=== PATIENT | female | born 1960 | race Caucasian/White ===

== ENCOUNTER 2020-04-10 20:40 | Emergency (ER) | payer MEDICARE, MEDICAID, SELFPAY ==
[2020-04-10 20:42] VITALS: BP 77/34; PULSE 66; RESP 16; TEMP 36.3; O2SAT 95; BMI 39.8
[2020-04-10 20:49] VITALS: BP 101/59
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
[2020-04-10] MEDS: oxyCODONE HCl Immed Release 5 MG TABLET PO (22:12)
[2020-04-10 22:35] VITALS: BP 118/69; PULSE 77; RESP 18; TEMP 36.7; O2SAT 94
[2020-04-10] MEDS: Silver Sulfadiazine 1 % Cream 20 GM TUBE 1 APPL TOPICAL (23:02)
== END 2020-04-10 23:14 | disposition home or self-care (01) ==
PROVIDERS: Emergency Provider Emergency Medicine
DX: T24.212A Burn of second degree of left thigh, initial encounter (principal); T24.211A Burn of second degree of right thigh, initial encounter; T31.0 Burns involving less than 10% of body surface; X10.0XXA Contact with hot drinks, initial encounter; E11.9 Type 2 diabetes mellitus without complications; I10 Essential (primary) hypertension; Y93.89 Activity, other specified; Y92.810 Car as the place of occurrence of the external cause; Y99.9 Unspecified external cause status
CPT/HCPCS: 99283

== ENCOUNTER 2020-04-19 13:26 | Inpatient (IN) | payer MEDICARE, MEDICAID, SELFPAY ==
[2020-04-19 13:40] VITALS: BP 120/84; BP 122/81; PULSE 79; PULSE 95; RESP 18; TEMP 37.2; O2SAT 96; O2SAT 97; BMI 39.5
[2020-04-19 14:00] VITALS: TEMP 36.2
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
[2020-04-19 14:29] LABS: MANUAL DIFF FLAG NO
[2020-04-19 14:30] LABS: Basophils Percent Auto 0.4 % (0-2); Eosinophils Absolute Auto 0.1 X10*3/uL (0.0-0.4); Eosinophils Percent Auto 1.3 % (0-4); Hematocrit 40.5 % (37-47); Hemoglobin 13.2 g/dl (12.0-16.0); Imm Gran Abs Auto 0.28 X10*3/uL (0.00-0.03); Imm Gran Pct Auto 3.7 % (0.0-0.4); Lymphocytes Absolute Auto 1.8 X10*3/uL (1.2-4.9); Lymphocytes Percent Auto 23.6 % (20-40); Mean Corpuscular HGB Conc 32.6 g/dl (31.0-35.0); Mean Corpuscular Hemoglobin 27.4 pg (27.0-33.0); Mean Corpuscular Volume 84.2 fL (80-98); Mean Platelet Volume 8.7 fL (9.4-12.3); Monocytes Absolute Auto 0.5 X10*3/uL (0.1-1.2); Monocytes Percent Auto 6.7 % (2-11); Neutrophils Absolute Auto 4.9 X10*3/uL (2.0-8.3); Neutrophils Percent Auto 64.3 % (45-73); Platelet Count 369 X10*3/uL (160-400); Red Blood Count 4.81 X10*6/uL (4.20-5.50); Red Cell Distribution Width 12.6 % (11.0-16.0); White Blood Count 7.6 X10*3/uL (4.8-10.8)
[2020-04-19] MEDS: ondansetron HCL 4 MG/2 ML VIAL IVPUSH (14:35)
[2020-04-19] MEDS: Piperacillin Sodium/Tazobactam 3.375 GM in 0.9 % Sodium Chloride 50 ML IV (14:35)
[2020-04-19] MEDS: Morphine Sulfate 4 MG/ML CARTRIDGE IVPUSH ×2 (14:35→18:42)
[2020-04-19 14:40] LABS: INTERNATIONAL NORM RATIO 1.1 (0.9-1.1); Prothrombin Time 13.5 SEC (10.8-13.0)
[2020-04-19 14:41] LABS: COVID-19 Test Positive (Negative)
--- NOTE | 2020-04-19 14:42 | PC.NURSE ---
iv established, blood labs obtained and sent. medicated per emar. pharmacy called for iv vanco.
[2020-04-19 14:43] LABS: Partial Thromboplastin Time 31.8 SEC (24.1-38.0)
[2020-04-19 15:05] LABS: Lactic Acid 1.2 mmol/L (0.5-2.0)
--- NOTE | 2020-04-19 15:48 | PC.NURSE ---
hospitalist at bedside for eval.
[2020-04-19 16:46] LABS: Alanine Aminotransferase 8 U/L (0-31); Albumin Level 3.8 g/dL (3.5-5.0); Alkaline Phosphatase 92 U/L (39-117); Anion Gap 16 (12-20); Aspartate Amino Transferase 9 U/L (5-31); Bilirubin Direct 0.2 mg/dL (0.0-0.5); Bilirubin Total 0.3 mg/dL (0.0-1.0); Blood Urea Nitrogen 12 mg/dL (9-16); Calcium 8.7 mg/dL (8.4-10.2); Carbon Dioxide 26 mmol/L (22-29); Chloride 102 mmol/L (96-108); Creatinine Clr Calc Pharmacy 103.5; Estimated Glomerular Filt Rate > 60; Glucose Random 129 mg/dL (60-115); Lactate Dehydrogenase 163 U/L (122-220); Lipase 35 U/L (8-78); Magnesium 2.2 mg/dL (1.6-2.6); Sodium 140 mmol/L (135-145); Total Protein 6.5 g/dL (6.5-8.0)
[2020-04-19 17:06] LABS: Glucose, Whole Blood 135 mg/dL (60-115)
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
[2020-04-19 19:33] VITALS: BP 100/72; PULSE 84; RESP 18; O2SAT 98
[2020-04-19] MEDS: oxyCODONE HCl Immed Release 5 MG TABLET PO (21:20)
[2020-04-19] MEDS: Acetaminophen 325 MG TABLET 650 MG PO (21:20)
[2020-04-19] MEDS: Silver Sulfadiazine 1 % Cream 20 GM TUBE 1 APPL TOPICAL (21:21)
[2020-04-19] MEDS: metFORMIN HCl 1,000 MG TABLET 1000 MG PO (21:21)
[2020-04-19] MEDS: Enoxaparin Sodium 40 MG/0.4 ML SYRINGE SUBCUT (21:21)
[2020-04-20] VITALS (7 sets, daily range): BP systolic 93–128; BP diastolic 57–81; PULSE 71–89; RESP 16–20; TEMP 36.5–36.8; O2SAT 94–96; BMI 39.5
[2020-04-20] MEDS: 0.9 % Sodium Chloride Flush 3 ML SYRINGE IVFLUSH ×4 (00:13→23:10)
[2020-04-20] MEDS: vancomycin HCL 1,000 MG in 0.9 % Sodium Chloride 250 ML 270 MG IV ×2 (03:20→15:01)
[2020-04-20] MEDS: Acetaminophen 325 MG TABLET 650 MG PO (05:30)
[2020-04-20] MEDS: oxyCODONE HCl Immed Release 5 MG TABLET PO ×5 (05:30→23:10)
--- NOTE | 2020-04-20 07:29 | PC.NURSE ---
pt a/o x 3 no sob/shaina noted skin pink warm dry speaks in full sentences. denies any pain/disc. pt aware of plan of care for admission to hosp.
[2020-04-20 08:03] LABS: MANUAL DIFF FLAG NO
[2020-04-20 08:04] LABS: Basophils Percent Auto 0.4 % (0-2); Eosinophils Absolute Auto 0.1 X10*3/uL (0.0-0.4); Eosinophils Percent Auto 1.8 % (0-4); Hematocrit 38.2 % (37-47); Hemoglobin 12.2 g/dl (12.0-16.0); Imm Gran Abs Auto 0.19 X10*3/uL (0.00-0.03); Imm Gran Pct Auto 2.4 % (0.0-0.4); Lymphocytes Percent Auto 25.8 % (20-40); Mean Corpuscular HGB Conc 31.9 g/dl (31.0-35.0); Mean Corpuscular Hemoglobin 27.4 pg (27.0-33.0); Mean Corpuscular Volume 85.7 fL (80-98); Mean Platelet Volume 8.5 fL (9.4-12.3); Monocytes Absolute Auto 0.6 X10*3/uL (0.1-1.2); Monocytes Percent Auto 7.6 % (2-11); Neutrophils Absolute Auto 4.8 X10*3/uL (2.0-8.3); Platelet Count 334 X10*3/uL (160-400); Red Blood Count 4.46 X10*6/uL (4.20-5.50); White Blood Count 7.8 X10*3/uL (4.8-10.8)
[2020-04-20] MEDS: hydroCHLOROthiazide 12.5 MG TABLET PO (08:21)
[2020-04-20] MEDS: metFORMIN HCl 1,000 MG TABLET 1000 MG PO ×2 (08:22→21:38)
[2020-04-20] MEDS: Aspirin Enteric Coated 81 MG TABLET.DR PO (08:22)
[2020-04-20] MEDS: Atorvastatin Calcium 80 MG TABLET PO (08:23)
[2020-04-20] MEDS: Fluticasone/Vilanterol 200/25 BLST.W.DEV 1 PUFF INHALE (08:23)
[2020-04-20] MEDS: Fluticasone Propionate Nasal 16 GM SPRAY 1 SPRAY NOSTRIL-B (08:23)
[2020-04-20 08:45] LABS: Anion Gap 12 (12-20); Blood Urea Nitrogen 17 mg/dL (9-16); Calcium 8.4 mg/dL (8.4-10.2); Carbon Dioxide 31 mmol/L (22-29); Chloride 101 mmol/L (96-108); Creatinine Clr Calc Pharmacy 97.2; Estimated Glomerular Filt Rate > 60; Glucose Random 157 mg/dL (60-115); Potassium 4.5 mmol/l (3.3-5.1); Sodium 139 mmol/L (135-145)
[2020-04-20] MEDS: SITagliptin Phosphate 100 MG TABLET PO (08:50)
--- NOTE | 2020-04-20 09:00 | PC.NURSE ---
pt was med x 1 with tylenol 650mg po prn for 2/10 pain prior to dressing change.
--- NOTE | 2020-04-20 09:49 | PC.NURSE ---
nurse to nurse given to ana (edwina), pt aware of plan of care for admission to hosp.
--- NOTE | 2020-04-20 12:46 | MHC.CM.PN ---
talked with pts daphnie hill with whom she lives he explins that pt has an tn visit every 3 months thru her ins he will radha pt home whendcd
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
[2020-04-20 13:22] LABS: Glucose, Whole Blood 126 mg/dL (60-115)
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
[2020-04-20 16:48] LABS: Glucose, Whole Blood 128 mg/dL (60-115)
[2020-04-20] MEDS: Enoxaparin Sodium 40 MG/0.4 ML SYRINGE SUBCUT (17:13)
[2020-04-20 20:19] LABS: Glucose, Whole Blood 153 mg/dL (60-115)
[2020-04-20] MEDS: Insulin Lispro 100 UNIT/ML 3 ML VIAL SUBCUT (21:38)
[2020-04-21] VITALS (8 sets, daily range): BP systolic 102–131; BP diastolic 58–83; PULSE 77–91; RESP 13–20; TEMP 36.1–37.4; O2SAT 90–97
[2020-04-21 02:29] LABS: Vancomycin Trough 10.7 mcg/mL (10.0-20.0)
[2020-04-21] MEDS: vancomycin HCL 1,000 MG in 0.9 % Sodium Chloride 250 ML 270 MG IV ×2 (03:28→15:16)
[2020-04-21 08:01] LABS: Glucose, Whole Blood 137 mg/dL (60-115)
[2020-04-21] MEDS: oxyCODONE HCl Immed Release 5 MG TABLET PO ×2 (09:52→18:42)
[2020-04-21] MEDS: Atorvastatin Calcium 80 MG TABLET PO (09:53)
[2020-04-21] MEDS: hydroCHLOROthiazide 12.5 MG TABLET PO (09:54)
[2020-04-21] MEDS: metFORMIN HCl 1,000 MG TABLET 1000 MG PO ×2 (09:54→19:54)
[2020-04-21] MEDS: Aspirin Enteric Coated 81 MG TABLET.DR PO (09:54)
[2020-04-21] MEDS: 0.9 % Sodium Chloride Flush 3 ML SYRINGE IVFLUSH ×3 (09:54→20:15)
[2020-04-21] MEDS: Fluticasone/Vilanterol 200/25 BLST.W.DEV 1 PUFF INHALE (09:57)
[2020-04-21] MEDS: Fluticasone Propionate Nasal 16 GM SPRAY 1 SPRAY NOSTRIL-B (09:57)
[2020-04-21 11:12] LABS: Glucose, Whole Blood 201 mg/dL (60-115)
[2020-04-21] MEDS: SITagliptin Phosphate 100 MG TABLET PO (11:23)
[2020-04-21] MEDS: Insulin Lispro 100 UNIT/ML 3 ML VIAL SUBCUT ×2 (11:59→19:53)
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
[2020-04-21 16:33] LABS: Glucose, Whole Blood 102 mg/dL (60-115)
[2020-04-21] MEDS: Enoxaparin Sodium 40 MG/0.4 ML SYRINGE SUBCUT (18:42)
[2020-04-21] MEDS: Acetaminophen 325 MG TABLET 650 MG PO (19:53)
[2020-04-21 20:03] LABS: Glucose, Whole Blood 180 mg/dL (60-115)
[2020-04-22] VITALS (11 sets, daily range): BP systolic 107–151; BP diastolic 59–96; PULSE 2–87; RESP 16–20; TEMP 36.1–37.1; O2SAT 93–100
[2020-04-22] MEDS: vancomycin HCL 1,000 MG in 0.9 % Sodium Chloride 250 ML 270 MG IV (02:22)
[2020-04-22] MEDS: oxyCODONE HCl Immed Release 5 MG TABLET PO ×3 (02:22→18:08)
[2020-04-22 07:07] LABS: Anion Gap 15 (12-20); Blood Urea Nitrogen 20 mg/dL (9-16); Calcium 8.5 mg/dL (8.4-10.2); Carbon Dioxide 25 mmol/L (22-29); Chloride 103 mmol/L (96-108); Creatinine Clr Calc Pharmacy 109.1; Estimated Glomerular Filt Rate > 60; Glucose Random 176 mg/dL (60-115); Sodium 139 mmol/L (135-145)
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
[2020-04-22 07:45] LABS: Glucose, Whole Blood 157 mg/dL (60-115)
[2020-04-22] MEDS: 0.9 % Sodium Chloride Flush 3 ML SYRINGE IVFLUSH ×3 (08:00→23:33)
[2020-04-22] MEDS: Fluticasone Propionate Nasal 16 GM SPRAY 1 SPRAY NOSTRIL-B (08:01)
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
[2020-04-22 11:31] LABS: Glucose, Whole Blood 131 mg/dL (60-115)
[2020-04-22 13:07] LABS: Vancomycin Trough 12.7 mcg/mL (10.0-20.0)
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
[2020-04-22 16:18] LABS: Glucose, Whole Blood 116 mg/dL (60-115)
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
[2020-04-22 21:31] LABS: Glucose, Whole Blood 170 mg/dL (60-115)
[2020-04-22] MEDS: Enoxaparin Sodium 40 MG/0.4 ML SYRINGE SUBCUT (21:48)
[2020-04-22] MEDS: metFORMIN HCl 1,000 MG TABLET 1000 MG PO (21:48)
[2020-04-22] MEDS: Insulin Lispro 100 UNIT/ML 3 ML VIAL SUBCUT (21:49)
[2020-04-23] VITALS (8 sets, daily range): BP systolic 104–137; BP diastolic 67–87; PULSE 67–87; RESP 18–20; TEMP 36.4–36.7; O2SAT 93–97
--- NOTE | 2020-04-23 07:19 | HO.POSTANES ---
Post Anesthesia Evaluation Post Anesthesia Evaluation Vital Signs: Vital Signs Temp Pulse Resp BP Pulse Ox 04/23/20 03:26 97.5 F 80 18 137/87 93 04/22/20 23:02 97.7 F 87 18 107/59 L 95 04/22/20 21:05 97.7 F 2 L 18 149/90 H 93 04/22/20 20:50 81 18 151/96 H 93 04/22/20 20:45 84 17 141/90 H 99 04/22/20 20:40 98.7 F 82 20 136/80 100 04/22/20 20:36 86 18 142/87 H 100 04/22/20 20:11 97.5 F 71 18 138/91 H 98 Morbid obese COVID + since 04/19 Anesthesia: General Mental Status: Awake Pain Control: Satisfactory Nausea/Vomiting: None Hydration: Adequate Anesthesia-Related Issues: No Anes. Related Issues
[2020-04-23 07:44] LABS: Glucose, Whole Blood 132 mg/dL (60-115)
[2020-04-23] MEDS: metFORMIN HCl 1,000 MG TABLET 1000 MG PO ×2 (08:17→21:26)
[2020-04-23] MEDS: 0.9 % Sodium Chloride Flush 3 ML SYRINGE IVFLUSH ×3 (08:17→21:26)
[2020-04-23] MEDS: oxyCODONE HCl Immed Release 5 MG TABLET PO ×3 (08:17→21:26)
[2020-04-23] MEDS: SITagliptin Phosphate 100 MG TABLET PO (08:17)
[2020-04-23] MEDS: Aspirin Enteric Coated 81 MG TABLET.DR PO (08:17)
[2020-04-23] MEDS: Atorvastatin Calcium 80 MG TABLET PO (08:17)
[2020-04-23] MEDS: hydroCHLOROthiazide 12.5 MG TABLET PO (08:17)
[2020-04-23] MEDS: Fluticasone Propionate Nasal 16 GM SPRAY 1 SPRAY NOSTRIL-B (08:18)
[2020-04-23] MEDS: Fluticasone/Vilanterol 200/25 BLST.W.DEV 1 PUFF INHALE (08:30)
[2020-04-23 11:25] LABS: Glucose, Whole Blood 134 mg/dL (60-115)
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
[2020-04-23 16:27] LABS: Glucose, Whole Blood 161 mg/dL (60-115)
[2020-04-23] MEDS: Insulin Lispro 100 UNIT/ML 3 ML VIAL SUBCUT ×2 (16:51→21:26)
[2020-04-23] MEDS: Piperacillin Sodium/Tazobactam 3.375 GM in 0.9 % Sodium Chloride 50 ML IV (17:55)
[2020-04-23] MEDS: Enoxaparin Sodium 40 MG/0.4 ML SYRINGE SUBCUT (17:56)
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
[2020-04-23 21:24] LABS: Glucose, Whole Blood 163 mg/dL (60-115)
[2020-04-24] VITALS (8 sets, daily range): BP systolic 101–142; BP diastolic 64–79; PULSE 60–84; RESP 14–20; TEMP 36.1–36.9; O2SAT 92–98
[2020-04-24] MEDS: Piperacillin Sodium/Tazobactam 3.375 GM in 0.9 % Sodium Chloride 50 ML IV ×5 (00:28→23:05)
[2020-04-24 04:43] LABS: MANUAL DIFF FLAG NO
[2020-04-24 04:44] LABS: Basophils Percent Auto 0.5 % (0-2); Eosinophils Absolute Auto 0.2 X10*3/uL (0.0-0.4); Eosinophils Percent Auto 2.6 % (0-4); Hematocrit 35.1 % (37-47); Hemoglobin 11.3 g/dl (12.0-16.0); Imm Gran Pct Auto 1.6 % (0.0-0.4); Lymphocytes Absolute Auto 2.3 X10*3/uL (1.2-4.9); Lymphocytes Percent Auto 37.4 % (20-40); Mean Corpuscular HGB Conc 32.2 g/dl (31.0-35.0); Mean Corpuscular Hemoglobin 27.5 pg (27.0-33.0); Mean Corpuscular Volume 85.4 fL (80-98); Mean Platelet Volume 8.9 fL (9.4-12.3); Monocytes Absolute Auto 0.5 X10*3/uL (0.1-1.2); Monocytes Percent Auto 8.8 % (2-11); Neutrophils Percent Auto 49.1 % (45-73); Platelet Count 334 X10*3/uL (160-400); Red Blood Count 4.11 X10*6/uL (4.20-5.50); Red Cell Distribution Width 13.2 % (11.0-16.0); White Blood Count 6.2 X10*3/uL (4.8-10.8)
[2020-04-24 05:08] LABS: Anion Gap 14 (12-20); Blood Urea Nitrogen 17 mg/dL (9-16); Calcium 8.5 mg/dL (8.4-10.2); Carbon Dioxide 26 mmol/L (22-29); Chloride 105 mmol/L (96-108); Creatinine Clr Calc Pharmacy 109.1; Estimated Glomerular Filt Rate > 60; Glucose Random 126 mg/dL (60-115); Sodium 141 mmol/L (135-145)
[2020-04-24 05:14] LABS: Vancomycin Trough 12.6 mcg/mL (10.0-20.0)
[2020-04-24] MEDS: metFORMIN HCl 1,000 MG TABLET 1000 MG PO ×2 (07:15→20:33)
[2020-04-24] MEDS: Aspirin Enteric Coated 81 MG TABLET.DR PO (07:15)
[2020-04-24] MEDS: 0.9 % Sodium Chloride Flush 3 ML SYRINGE IVFLUSH ×3 (07:15→23:05)
[2020-04-24] MEDS: SITagliptin Phosphate 100 MG TABLET PO (07:16)
[2020-04-24] MEDS: hydroCHLOROthiazide 12.5 MG TABLET PO (07:16)
[2020-04-24] MEDS: Atorvastatin Calcium 80 MG TABLET PO (07:16)
[2020-04-24] MEDS: Fluticasone Propionate Nasal 16 GM SPRAY 1 SPRAY NOSTRIL-B (07:18)
[2020-04-24] MEDS: Fluticasone/Vilanterol 200/25 BLST.W.DEV 1 PUFF INHALE (07:43)
[2020-04-24] MEDS: oxyCODONE HCl Immed Release 5 MG TABLET PO ×2 (07:48→21:18)
[2020-04-24 07:54] LABS: Glucose, Whole Blood 144 mg/dL (60-115)
[2020-04-24] MEDS: Morphine Sulfate 4 MG/ML CARTRIDGE IVPUSH (09:40)
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
[2020-04-24 11:32] LABS: Glucose, Whole Blood 132 mg/dL (60-115)
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
[2020-04-24 16:43] LABS: Glucose, Whole Blood 217 mg/dL (60-115)
[2020-04-24] MEDS: Enoxaparin Sodium 40 MG/0.4 ML SYRINGE SUBCUT (17:54)
[2020-04-24] MEDS: Insulin Lispro 100 UNIT/ML 3 ML VIAL SUBCUT ×2 (17:54→20:33)
[2020-04-24 20:40] LABS: Glucose, Whole Blood 219 mg/dL (60-115)
[2020-04-25] VITALS (10 sets, daily range): BP systolic 107–131; BP diastolic 69–82; PULSE 67–78; RESP 16–20; TEMP 36.2–36.9; O2SAT 95–99
[2020-04-25] MEDS: Piperacillin Sodium/Tazobactam 3.375 GM in 0.9 % Sodium Chloride 50 ML IV ×3 (06:18→17:52)
[2020-04-25 07:22] LABS: Hematocrit 36.3 % (37-47); Hemoglobin 11.5 g/dl (12.0-16.0); Mean Corpuscular HGB Conc 31.7 g/dl (31.0-35.0); Mean Corpuscular Hemoglobin 27.3 pg (27.0-33.0); Mean Corpuscular Volume 86.2 fL (80-98); Mean Platelet Volume 9.1 fL (9.4-12.3); Platelet Count 336 X10*3/uL (160-400); Red Blood Count 4.21 X10*6/uL (4.20-5.50); Red Cell Distribution Width 13.3 % (11.0-16.0); White Blood Count 6.6 X10*3/uL (4.8-10.8)
[2020-04-25 07:31] LABS: Anion Gap 18 (12-20); Blood Urea Nitrogen 18 mg/dL (9-16); Calcium 8.7 mg/dL (8.4-10.2); Carbon Dioxide 24 mmol/L (22-29); Chloride 105 mmol/L (96-108); Creatinine Clr Calc Pharmacy 104.8; Estimated Glomerular Filt Rate > 60; Glucose Random 137 mg/dL (60-115); Potassium 4.7 mmol/l (3.3-5.1); Sodium 142 mmol/L (135-145)
[2020-04-25] MEDS: Fluticasone/Vilanterol 200/25 BLST.W.DEV 1 PUFF INHALE (07:36)
[2020-04-25 07:44] LABS: Glucose, Whole Blood 129 mg/dL (60-115)
[2020-04-25] MEDS: 0.9 % Sodium Chloride Flush 3 ML SYRINGE IVFLUSH ×2 (08:48→15:45)
[2020-04-25] MEDS: Fluticasone Propionate Nasal 16 GM SPRAY 1 SPRAY NOSTRIL-B (08:49)
[2020-04-25] MEDS: Atorvastatin Calcium 80 MG TABLET PO (08:49)
[2020-04-25] MEDS: hydroCHLOROthiazide 12.5 MG TABLET PO (08:49)
[2020-04-25] MEDS: Aspirin Enteric Coated 81 MG TABLET.DR PO (08:49)
[2020-04-25] MEDS: SITagliptin Phosphate 100 MG TABLET PO (08:49)
[2020-04-25] MEDS: metFORMIN HCl 1,000 MG TABLET 1000 MG PO ×2 (08:49→21:51)
[2020-04-25] MEDS: Morphine Sulfate 4 MG/ML CARTRIDGE IVPUSH ×2 (09:00→15:45)
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
[2020-04-25 11:40] LABS: Glucose, Whole Blood 161 mg/dL (60-115)
[2020-04-25] MEDS: Insulin Lispro 100 UNIT/ML 3 ML VIAL SUBCUT (12:15)
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
[2020-04-25 16:47] LABS: Glucose, Whole Blood 101 mg/dL (60-115)
[2020-04-25] MEDS: Enoxaparin Sodium 40 MG/0.4 ML SYRINGE SUBCUT (17:52)
[2020-04-25 20:38] LABS: Glucose, Whole Blood 151 mg/dL (60-115)
[2020-04-26] VITALS (7 sets, daily range): BP systolic 96–132; BP diastolic 63–71; PULSE 69–79; RESP 18; TEMP 36–36.9; O2SAT 96–99
[2020-04-26] MEDS: Morphine Sulfate 4 MG/ML CARTRIDGE IVPUSH (00:37)
[2020-04-26] MEDS: Piperacillin Sodium/Tazobactam 3.375 GM in 0.9 % Sodium Chloride 50 ML IV ×5 (00:37→23:49)
[2020-04-26] MEDS: 0.9 % Sodium Chloride Flush 3 ML SYRINGE IVFLUSH ×4 (00:38→23:49)
[2020-04-26 03:33] LABS: Vancomycin Trough 19.2 mcg/mL (10.0-20.0)
[2020-04-26 06:58] LABS: Creatinine Clr Calc Pharmacy 97.2; Estimated Glomerular Filt Rate > 60
[2020-04-26 07:20] LABS: Glucose, Whole Blood 133 mg/dL (60-115)
[2020-04-26] MEDS: Aspirin Enteric Coated 81 MG TABLET.DR PO (08:14)
[2020-04-26] MEDS: hydroCHLOROthiazide 12.5 MG TABLET PO (08:15)
[2020-04-26] MEDS: metFORMIN HCl 1,000 MG TABLET 1000 MG PO ×2 (08:15→21:18)
[2020-04-26] MEDS: Atorvastatin Calcium 80 MG TABLET PO (08:15)
[2020-04-26] MEDS: SITagliptin Phosphate 100 MG TABLET PO (08:15)
[2020-04-26] MEDS: Fluticasone Propionate Nasal 16 GM SPRAY 1 SPRAY NOSTRIL-B (08:16)
[2020-04-26] MEDS: oxyCODONE HCl Immed Release 5 MG TABLET PO ×3 (08:16→21:18)
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
[2020-04-26 11:23] LABS: Glucose, Whole Blood 105 mg/dL (60-115)
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
[2020-04-26 17:01] LABS: COVID-19 Test Positive (Negative)
[2020-04-26 17:05] LABS: Glucose, Whole Blood 174 mg/dL (60-115)
--- NOTE | 2020-04-26 17:21 | PC.NURSE ---
MD ordered repeat covid swab prior to discharge. When nurse went to obtain specimen patient initially refused and said that she was going to refuse to be discharged until her wounds are completely healed. Patient educated on potential discharge plan and patient became very emotional. After lengthy discussion and assurance from nurse that case management will make sure that her needs will be able to be met when she is discharged. Patient agreed to covid swab.
[2020-04-26] MEDS: Enoxaparin Sodium 40 MG/0.4 ML SYRINGE SUBCUT (18:08)
[2020-04-26 20:28] LABS: Glucose, Whole Blood 162 mg/dL (60-115)
[2020-04-26] MEDS: Insulin Lispro 100 UNIT/ML 3 ML VIAL SUBCUT (21:18)
[2020-04-27] VITALS (11 sets, daily range): BP systolic 90–133; BP diastolic 52–73; PULSE 68–80; RESP 18–20; TEMP 36.1–36.8; O2SAT 94–98
[2020-04-27 03:36] LABS: Vancomycin Trough 18.5 mcg/mL (10.0-20.0)
[2020-04-27] MEDS: Piperacillin Sodium/Tazobactam 3.375 GM in 0.9 % Sodium Chloride 50 ML IV ×4 (05:50→23:53)
[2020-04-27 07:22] LABS: Glucose, Whole Blood 110 mg/dL (60-115)
[2020-04-27 07:32] LABS: Anion Gap 14 (12-20); Blood Urea Nitrogen 14 mg/dL (9-16); Calcium 8.6 mg/dL (8.4-10.2); Carbon Dioxide 28 mmol/L (22-29); Chloride 104 mmol/L (96-108); Creatinine Clr Calc Pharmacy 97.2; Estimated Glomerular Filt Rate > 60; Glucose Random 124 mg/dL (60-115); Potassium 4.3 mmol/l (3.3-5.1); Sodium 142 mmol/L (135-145)
[2020-04-27] MEDS: 0.9 % Sodium Chloride Flush 3 ML SYRINGE IVFLUSH ×3 (09:14→23:53)
[2020-04-27] MEDS: Morphine Sulfate 4 MG/ML CARTRIDGE IVPUSH ×2 (09:14→16:30)
[2020-04-27] MEDS: Atorvastatin Calcium 80 MG TABLET PO (09:15)
[2020-04-27] MEDS: metFORMIN HCl 1,000 MG TABLET 1000 MG PO ×2 (09:15→22:22)
[2020-04-27] MEDS: Fluticasone Propionate Nasal 16 GM SPRAY 1 SPRAY NOSTRIL-B (09:15)
[2020-04-27] MEDS: SITagliptin Phosphate 100 MG TABLET PO (09:15)
[2020-04-27] MEDS: Aspirin Enteric Coated 81 MG TABLET.DR PO (09:15)
[2020-04-27] MEDS: hydroCHLOROthiazide 12.5 MG TABLET PO (09:15)
[2020-04-27 11:13] LABS: Glucose, Whole Blood 124 mg/dL (60-115)
--- NOTE | 2020-04-27 11:49 | MHC.CLN ---
F/U PO INTAKE 100% DIET RX: 1800DM-APPROPRIATE WILL RE-START ENSURE MAX SUPP AND REYNA TO SUPPORT WOUND HEALING FOLLOWING
[2020-04-27] MEDS: ondansetron HCL 4 MG/2 ML VIAL IVPUSH (12:22)
[2020-04-27 16:54] LABS: Glucose, Whole Blood 96 mg/dL (60-115)
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
[2020-04-27] MEDS: Enoxaparin Sodium 40 MG/0.4 ML SYRINGE SUBCUT (17:53)
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
[2020-04-27 20:25] LABS: Glucose, Whole Blood 133 mg/dL (60-115)
[2020-04-27] MEDS: oxyCODONE HCl Immed Release 5 MG TABLET PO (22:29)
[2020-04-28 03:37] VITALS: BP 91/62; PULSE 76; RESP 18; TEMP 36.1; O2SAT 95
[2020-04-28] MEDS: Piperacillin Sodium/Tazobactam 3.375 GM in 0.9 % Sodium Chloride 50 ML IV ×3 (06:26→19:32)
[2020-04-28 07:11] LABS: Anion Gap 13 (12-20); Blood Urea Nitrogen 17 mg/dL (9-16); Calcium 8.4 mg/dL (8.4-10.2); Carbon Dioxide 27 mmol/L (22-29); Chloride 104 mmol/L (96-108); Creatinine Clr Calc Pharmacy 97.2; Estimated Glomerular Filt Rate > 60; Glucose Random 112 mg/dL (60-115); Potassium 4.1 mmol/l (3.3-5.1); Sodium 140 mmol/L (135-145)
[2020-04-28 07:48] LABS: Glucose, Whole Blood 110 mg/dL (60-115)
[2020-04-28] MEDS: Aspirin Enteric Coated 81 MG TABLET.DR PO (07:53)
[2020-04-28] MEDS: metFORMIN HCl 1,000 MG TABLET 1000 MG PO ×2 (07:53→21:43)
[2020-04-28] MEDS: SITagliptin Phosphate 100 MG TABLET PO (07:53)
[2020-04-28] MEDS: 0.9 % Sodium Chloride Flush 3 ML SYRINGE IVFLUSH ×3 (07:54→21:44)
[2020-04-28] MEDS: Atorvastatin Calcium 80 MG TABLET PO (07:54)
[2020-04-28 08:00] VITALS: BP 100/70; PULSE 83; RESP 100; TEMP 36.7; O2SAT 100
[2020-04-28] MEDS: Fluticasone Propionate Nasal 16 GM SPRAY 1 SPRAY NOSTRIL-B (08:01)
[2020-04-28] MEDS: hydroCHLOROthiazide 12.5 MG TABLET PO (10:14)
[2020-04-28] MEDS: oxyCODONE HCl Immed Release 5 MG TABLET PO ×2 (10:20→21:43)
[2020-04-28 11:07] VITALS: BP 103/64; PULSE 76; RESP 20; TEMP 36.9; O2SAT 99
[2020-04-28 11:36] LABS: Glucose, Whole Blood 131 mg/dL (60-115)
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
[2020-04-28 16:00] VITALS: BP 109/68; PULSE 75; RESP 18; TEMP 36.8; O2SAT 97
[2020-04-28 16:17] LABS: Glucose, Whole Blood 151 mg/dL (60-115)
[2020-04-28 16:47] LABS: Vancomycin Trough 12.9 mcg/mL (10.0-20.0)
[2020-04-28] MEDS: Insulin Lispro 100 UNIT/ML 3 ML VIAL SUBCUT ×2 (17:17→21:43)
[2020-04-28] MEDS: Enoxaparin Sodium 40 MG/0.4 ML SYRINGE SUBCUT (19:30)
[2020-04-28] MEDS: Fluticasone/Vilanterol 200/25 BLST.W.DEV 1 PUFF INHALE (19:33)
[2020-04-28 19:55] VITALS: BP 121/64; PULSE 78; RESP 20; TEMP 36.9; O2SAT 95
[2020-04-28 20:00] VITALS: O2SAT 95
[2020-04-28 20:04] LABS: Glucose, Whole Blood 165 mg/dL (60-115)
[2020-04-29] VITALS: BP 113/74; PULSE 75; RESP 18; TEMP 37; O2SAT 96
[2020-04-29] MEDS: Piperacillin Sodium/Tazobactam 3.375 GM in 0.9 % Sodium Chloride 50 ML IV ×3 (00:09→12:15)
[2020-04-29] MEDS: Morphine Sulfate 4 MG/ML CARTRIDGE IVPUSH ×2 (00:17→08:22)
[2020-04-29 06:56] LABS: Anion Gap 13 (12-20); Blood Urea Nitrogen 16 mg/dL (9-16); Calcium 8.3 mg/dL (8.4-10.2); Carbon Dioxide 27 mmol/L (22-29); Chloride 106 mmol/L (96-108); Creatinine Clr Calc Pharmacy 99.7; Estimated Glomerular Filt Rate > 60; Glucose Random 121 mg/dL (60-115); Sodium 142 mmol/L (135-145)
[2020-04-29 07:43] LABS: Glucose, Whole Blood 109 mg/dL (60-115)
[2020-04-29] MEDS: Fluticasone/Vilanterol 200/25 BLST.W.DEV 1 PUFF INHALE (07:51)
[2020-04-29 08:00] VITALS: BP 122/65; PULSE 65; RESP 16; TEMP 36.4; O2SAT 94
[2020-04-29] MEDS: Aspirin Enteric Coated 81 MG TABLET.DR PO (08:21)
[2020-04-29] MEDS: 0.9 % Sodium Chloride Flush 3 ML SYRINGE IVFLUSH (08:22)
[2020-04-29] MEDS: Acetaminophen 325 MG TABLET 650 MG PO (08:22)
[2020-04-29] MEDS: hydroCHLOROthiazide 12.5 MG TABLET PO (08:22)
[2020-04-29] MEDS: SITagliptin Phosphate 100 MG TABLET PO (08:22)
[2020-04-29] MEDS: Atorvastatin Calcium 80 MG TABLET PO (08:22)
[2020-04-29] MEDS: Fluticasone Propionate Nasal 16 GM SPRAY 1 SPRAY NOSTRIL-B (08:22)
[2020-04-29] MEDS: metFORMIN HCl 1,000 MG TABLET 1000 MG PO (08:22)
[2020-04-29 09:04] VITALS: BP 122/65; PULSE 65; O2SAT 94
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
[2020-04-29] MEDS: oxyCODONE HCl Immed Release 5 MG TABLET PO ×2 (10:01→16:00)
[2020-04-29 11:20] LABS: Glucose, Whole Blood 194 mg/dL (60-115)
[2020-04-29 11:33] VITALS: BP 101/66; PULSE 73; RESP 20; TEMP 37.1; O2SAT 94
[2020-04-29] MEDS: Insulin Lispro 100 UNIT/ML 3 ML VIAL SUBCUT (12:15)
--- NOTE | 2020-04-29 12:16 | MHC.CM.PN ---
Patient will be discharged today to [facility] at 4pm via BLS transport. MD, Patient, nurse made aware
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
[2020-04-29 15:14] VITALS: BP 120/65; PULSE 75; RESP 20; TEMP 36.2; O2SAT 96
== END 2020-04-29 16:18 | disposition skilled nursing facility (03) | DRG 933 ==
LOC: HO.ED 15:11 → HO.EDOVER 18:06 → HO.IMC 04-20 07:24 → HO.ISO 04-20 17:29 → HO.IMC 04-24 22:07
PROVIDERS: Nurse Practitioner Acute Care; Surgery; Admitting Provider Internal Medicine; Emergency Provider Emergency Medicine; PCP Physician Assistant; Visit Provider Student in an Organized Health Care Education/Training Program
DX: T24.212A Burn of second degree of left thigh, initial encounter (principal); T31.22 Burns involving 20-29% of body surface with 20-29% third degree burns; U07.1 COVID-19; L03.119 Cellulitis of unspecified part of limb; L03.116 Cellulitis of left lower limb; L03.115 Cellulitis of right lower limb; L03.311 Cellulitis of abdominal wall; L03.314 Cellulitis of groin; T24.211A Burn of second degree of right thigh, initial encounter; T21.22XA Burn of second degree of abdominal wall, initial encounter; X10.0XXA Contact with hot drinks, initial encounter; Y93.9 Activity, unspecified; E11.9 Type 2 diabetes mellitus without complications; I10 Essential (primary) hypertension; J45.909 Unspecified asthma, uncomplicated; E78.5 Hyperlipidemia, unspecified; Y92.009 Unspecified place in unspecified non-institutional (private) residence as the place of occurrence of the external cause; Y99.9 Unspecified external cause status; Z79.82 Long term (current) use of aspirin; Z79.51 Long term (current) use of inhaled steroids; Z79.84 Long term (current) use of oral hypoglycemic drugs; Z79.891 Long term (current) use of opiate analgesic; Z79.899 Other long term (current) drug therapy
CPT/HCPCS: 36415; 80048; 80076; 80202; 82565; 82947; 83605; 83615; 83690; 83735; 85025; 85027; 85610; 85730; 87040; 87635; 94640; 96365; 96367; 96375; 96376; 97116; 97163; 99024; 99285; J1650; J2250; J2270; J2405; J2543; J3010; J3370

== ENCOUNTER 2020-11-09 07:49 | Outpatient (REF) | payer MEDICARE, MEDICAID, SELFPAY ==
[2020-11-09 10:26] LABS: MANUAL DIFF FLAG NO
[2020-11-09 10:33] LABS: Basophils Absolute Auto 0.1 X10*3/uL (0.0-0.2); Basophils Percent Auto 0.8 % (0-2); Eosinophils Absolute Auto 0.2 X10*3/uL (0.0-0.4); Hematocrit 41.8 % (37-47); Hemoglobin 13.7 g/dl (12.0-16.0); Imm Gran Abs Auto 0.04 X10*3/uL (0.00-0.03); Imm Gran Pct Auto 0.7 % (0.0-0.4); Lymphocytes Absolute Auto 2.1 X10*3/uL (1.2-4.9); Lymphocytes Percent Auto 35.1 % (20-40); Mean Corpuscular HGB Conc 32.8 g/dl (31.0-35.0); Mean Corpuscular Hemoglobin 27.3 pg (27.0-33.0); Mean Corpuscular Volume 83.3 fL (80-98); Monocytes Absolute Auto 0.5 X10*3/uL (0.1-1.2); Monocytes Percent Auto 7.6 % (2-11); Neutrophils Absolute Auto 3.1 X10*3/uL (2.0-8.3); Neutrophils Percent Auto 51.8 % (45-73); Platelet Count 294 X10*3/uL (160-400); Red Blood Count 5.02 X10*6/uL (4.20-5.50); Red Cell Distribution Width 13.1 % (11.0-16.0)
[2020-11-09 10:43] LABS: Estimated Average Glucose 186 mg/dL; Hemoglobin A1c % 8.1 %
[2020-11-09 10:59] LABS: Creatinine Urine 53.84 mg/dL; Microalbumin Urine < 5.0 mg/L
[2020-11-09 10:59] LABS: Alanine Aminotransferase 25 U/L (0-31); Albumin Level 4.5 g/dL (3.5-5.0); Alkaline Phosphatase 95 U/L (39-117); Anion Gap 15 (12-20); Aspartate Amino Transferase 17 U/L (5-31); Bilirubin Total 0.5 mg/dL (0.0-1.0); Blood Urea Nitrogen 17 mg/dL (9-16); Calcium 9.5 mg/dL (8.4-10.2); Carbon Dioxide 24 mmol/L (22-29); Chloride 104 mmol/L (96-108); Cholesterol 138 mg/dL; Estimated Glomerular Filt Rate > 60; Glucose Fasting 163 mg/dL (60-99); HDL Cholesterol 41 mg/dL; LDL Cholesterol Calculated 57 mg/dl; Potassium 4.5 mmol/L (3.3-5.1); Sodium 138 mmol/L (135-145); Total Protein 7.2 g/dL (6.5-8.0); Triglycerides 202 mg/dL
[2020-11-09 11:19] LABS: TSH reflex Free T4 1.76 uIU/mL (0.32-4.0)
== END 2020-11-09 07:50 | disposition home or self-care (01) ==
LOC: HO.10HDL 07:49
PROVIDERS: Visit Provider Physician Assistant
DX: E11.65 Type 2 diabetes mellitus with hyperglycemia (principal); I10 Essential (primary) hypertension
CPT/HCPCS: 36415; 80053; 80061; 82043; 83036; 84443; 85025

== ENCOUNTER → 2020-11-26 12:49 | Outpatient (BNVA) | payer MEDICARE, MEDICAID, SELFPAY | PROVIDERS: PCP Physician Assistant; Visit Provider Advanced Practice Midwife ==

== ENCOUNTER 2020-12-03 10:04 | Outpatient (REF) | payer MEDICARE, MEDICAID, SELFPAY ==
--- NOTE | ~2020-12-03 | MM_ITS ---
EXAMINATION: MM SCREENING DIGITAL BREAST TOMOSYNTHESIS, BILATERAL CLINICAL INFORMATION: Screening. Asymptomatic. The lifetime risk of breast cancer based on the Tyrer-Cuzick Model is 4%. COMPARISON: Mammography: 11/28/2019, 09/05/2018, 02/19/2017 TECHNIQUE: Digital breast tomosynthesis is performed in both the craniocaudal and mediolateral oblique views along with computer-aided detection (CAD). Synthesized 2D images are generated from the tomosynthesis. FINDINGS: There are scattered areas of fibroglandular density (ACR BI-RADS breast composition Category b). There are no significant masses, abnormal calcifications, or other abnormalities. Breast tissue composition borders on predominantly fatty. Background stromal markings are stable. No significant changes. MM/MM tomosynthesis screening BI IMPRESSION: No mammographic evidence of malignancy. ASSESSMENT: BI-RADS 1: Negative RECOMMENDATION: Routine annual mammography screening. This patient's information was entered into a reminder system with a target due date for their next mammogram.
== END 2020-12-03 10:05 | disposition home or self-care (01) ==
LOC: HO.MAMMO 10:04
PROVIDERS: PCP Physician Assistant; Visit Provider Physician Assistant
DX: Z12.31 Encounter for screening mammogram for malignant neoplasm of breast (principal)
CPT/HCPCS: 77063; 77067

== ENCOUNTER 2021-02-14 08:50 | Outpatient (REF) | payer MEDICARE, MEDICAID, SELFPAY ==
[2021-02-14 10:25] LABS: Hematocrit 42.5 % (37.0-47.0); Mean Corpuscular HGB Conc 32.9 g/dl (31.0-35.0); Mean Corpuscular Hemoglobin 27.2 pg (27.0-33.0); Mean Corpuscular Volume 82.7 fL (80.0-98.0); Mean Platelet Volume 10.1 fL (9.4-12.3); Platelet Count 277 X10*3/uL (160-400); Red Blood Count 5.14 X10*6/uL (4.20-5.50); White Blood Count 6.9 X10*3/uL (4.8-10.8)
[2021-02-14 11:04] LABS: Alanine Aminotransferase 21 U/L (0-31); Albumin Level 4.5 g/dL (3.5-5.0); Alkaline Phosphatase 97 U/L (39-117); Anion Gap 14 (12-20); Aspartate Amino Transferase 17 U/L (5-31); Bilirubin Total 0.5 mg/dL (0.0-1.0); Blood Urea Nitrogen 15 mg/dL (9-16); Calcium 9.6 mg/dL (8.4-10.2); Carbon Dioxide 23 mmol/L (22-29); Chloride 102 mmol/L (96-108); Cholesterol 135 mg/dL; Estimated Glomerular Filt Rate 59; Glucose Fasting 168 mg/dL (60-99); HDL Cholesterol 41 mg/dL; LDL Cholesterol Calculated 49 mg/dl; Potassium 4.3 mmol/L (3.3-5.1); Sodium 135 mmol/L (135-145); Total Protein 7.2 g/dL (6.5-8.0); Triglycerides 226 mg/dL
== END 2021-02-14 08:51 | disposition home or self-care (01) ==
LOC: HO.10HDL 08:50
PROVIDERS: Visit Provider Physician Assistant
DX: E11.65 Type 2 diabetes mellitus with hyperglycemia (principal); E78.5 Hyperlipidemia, unspecified; I10 Essential (primary) hypertension
CPT/HCPCS: 36415; 80053; 80061; 85027

== ENCOUNTER 2021-06-15 08:06 | Outpatient (REF) | payer MEDICARE, MEDICAID, SELFPAY ==
[2021-06-15 10:20] LABS: Hematocrit 40.3 % (37.0-47.0); Hemoglobin 13.2 g/dl (12.0-16.0); Mean Corpuscular HGB Conc 32.8 g/dl (31.0-35.0); Mean Corpuscular Hemoglobin 27.7 pg (27.0-33.0); Mean Corpuscular Volume 84.5 fL (80.0-98.0); Mean Platelet Volume 10.1 fL (9.4-12.3); Platelet Count 255 X10*3/uL (160-400); Red Blood Count 4.77 X10*6/uL (4.20-5.50); Red Cell Distribution Width 12.9 % (11.0-16.0); White Blood Count 6.6 X10*3/uL (4.8-10.8)
[2021-06-15 10:46] LABS: Alanine Aminotransferase 21 U/L (0-31); Albumin Level 4.2 g/dL (3.5-5.0); Alkaline Phosphatase 85 U/L (39-117); Anion Gap 16 (12-20); Aspartate Amino Transferase 16 U/L (5-31); Bilirubin Total 0.6 mg/dL (0.0-1.0); Blood Urea Nitrogen 19 mg/dL (9-16); Calcium 9.5 mg/dL (8.4-10.2); Carbon Dioxide 22 mmol/L (22-29); Chloride 103 mmol/L (96-108); Cholesterol 128 mg/dL; Estimated Glomerular Filt Rate 60; Glucose Fasting 169 mg/dL (60-99); HDL Cholesterol 41 mg/dL; LDL Cholesterol Calculated 60 mg/dl; Potassium 4.2 mmol/L (3.3-5.1); Sodium 137 mmol/L (135-145); Total Protein 6.7 g/dL (6.5-8.0); Triglycerides 137 mg/dL
[2021-06-15 10:48] LABS: Estimated Average Glucose 183 mg/dL
[2021-06-15 10:53] LABS: Creatinine Urine 71.28 mg/dL; Microalbum/Creatinine Ratio Ur 12.6 ug/mg cr
[2021-06-15 10:59] LABS: TSH reflex Free T4 1.82 uIU/mL (0.32-4.0)
== END 2021-06-15 08:07 | disposition home or self-care (01) ==
LOC: HO.10HDL 08:06
PROVIDERS: Visit Provider Physician Assistant
DX: E11.65 Type 2 diabetes mellitus with hyperglycemia (principal)
CPT/HCPCS: 36415; 80053; 80061; 82043; 83036; 84443; 85027

== ENCOUNTER 2021-09-21 10:12 | Outpatient (REF) | payer MEDICARE, MEDICAID, SELFPAY ==
[2021-09-21 14:13] LABS: Hematocrit 40.6 % (37.0-47.0); Mean Corpuscular Hemoglobin 27.3 pg (27.0-33.0); Mean Corpuscular Volume 85.1 fL (80.0-98.0); Mean Platelet Volume 10.4 fL (9.4-12.3); Platelet Count 246 X10*3/uL (160-400); Red Blood Count 4.77 X10*6/uL (4.20-5.50); Red Cell Distribution Width 13.2 % (11.0-16.0); White Blood Count 5.3 X10*3/uL (4.8-10.8)
[2021-09-21 14:20] LABS: Alanine Aminotransferase 18 U/L (0-31); Albumin Level 4.3 g/dL (3.5-5.0); Alkaline Phosphatase 72 U/L (39-117); Anion Gap 16 (12-20); Aspartate Amino Transferase 15 U/L (5-31); Bilirubin Total 0.5 mg/dL (0.0-1.0); Blood Urea Nitrogen 17 mg/dL (9-16); Calcium 9.2 mg/dL (8.4-10.2); Carbon Dioxide 23 mmol/L (22-29); Chloride 105 mmol/L (96-108); Cholesterol 124 mg/dL; Estimated Glomerular Filt Rate > 60; Glucose Fasting 142 mg/dL (60-99); HDL Cholesterol 43 mg/dL; LDL Cholesterol Calculated 49 mg/dl; Potassium 4.3 mmol/L (3.3-5.1); Sodium 140 mmol/L (135-145); Total Protein 6.8 g/dL (6.5-8.0); Triglycerides 163 mg/dL
== END 2021-09-21 10:13 | disposition home or self-care (01) ==
LOC: HO.10HDL 10:12
PROVIDERS: Visit Provider Physician Assistant
DX: E11.65 Type 2 diabetes mellitus with hyperglycemia (principal); E78.2 Mixed hyperlipidemia
CPT/HCPCS: 36415; 80053; 80061; 84443; 85027

== ENCOUNTER 2021-12-26 09:58 | Outpatient (REF) | payer MEDICARE, MEDICAID, SELFPAY ==
[2021-12-26 10:59] LABS: Hematocrit 41.6 % (37.0-47.0); Hemoglobin 13.1 g/dl (12.0-16.0); Mean Corpuscular HGB Conc 31.5 g/dl (31.0-35.0); Mean Corpuscular Hemoglobin 26.4 pg (27.0-33.0); Mean Corpuscular Volume 83.7 fL (80.0-98.0); Mean Platelet Volume 9.8 fL (9.4-12.3); Platelet Count 251 X10*3/uL (160-400); Red Blood Count 4.97 X10*6/uL (4.20-5.50); Red Cell Distribution Width 13.3 % (11.0-16.0); White Blood Count 5.8 X10*3/uL (4.8-10.8)
[2021-12-26 11:06] LABS: Estimated Average Glucose 200 mg/dL; Hemoglobin A1c % 8.6 %
[2021-12-26 11:20] LABS: Alanine Aminotransferase 16 U/L (0-31); Albumin Level 4.5 g/dL (3.5-5.0); Alkaline Phosphatase 80 U/L (39-117); Anion Gap 16 (12-20); Aspartate Amino Transferase 15 U/L (5-31); Bilirubin Total 0.3 mg/dL (0.0-1.0); Blood Urea Nitrogen 17 mg/dL (9-16); Calcium 9.7 mg/dL (8.4-10.2); Carbon Dioxide 25 mmol/L (22-29); Chloride 103 mmol/L (96-108); Estimated Glomerular Filt Rate 55; Glucose Fasting 155 mg/dL (60-99); Potassium 4.3 mmol/L (3.3-5.1); Sodium 140 mmol/L (135-145)
== END 2021-12-26 09:59 | disposition home or self-care (01) ==
LOC: HO.10HDL 09:58
PROVIDERS: Visit Provider Physician Assistant
DX: E11.65 Type 2 diabetes mellitus with hyperglycemia (principal)
CPT/HCPCS: 36415; 80053; 83036; 85027

== ENCOUNTER 2022-03-08 08:16 | Outpatient (REF) | payer MEDICARE, MEDICAID, SELFPAY ==
--- NOTE | ~2022-03-08 | MM_ITS ---
EXAMINATION: MM SCREENING DIGITAL BREAST TOMOSYNTHESIS, BILATERAL CLINICAL INFORMATION: Screening. Asymptomatic. The lifetime risk of breast cancer based on the Tyrer-Cuzick Model is 3%. COMPARISON: Mammography: 12/03/2020, 11/28/2019, 09/05/2018 TECHNIQUE: Digital breast tomosynthesis is performed in both the craniocaudal and mediolateral oblique views along with computer-aided detection (CAD). Synthesized 2D images are generated from the tomosynthesis. FINDINGS: There are scattered areas of fibroglandular density (ACR BI-RADS breast composition Category b). There are no significant masses, abnormal calcifications, or other abnormalities. Parenchymal pattern is similar to prior studies. There is no developing density or architectural abnormality. The axilla and skin contours are unremarkable. No significant changes. MM/MM tomosynthesis screening BI IMPRESSION: No mammographic evidence of malignancy. ASSESSMENT: BI-RADS 1: Negative RECOMMENDATION: Routine annual mammography screening. This patient's information was entered into a reminder system with a target due date for their next mammogram.
== END 2022-03-08 08:17 | disposition home or self-care (01) ==
LOC: HO.MAMMO 08:16
PROVIDERS: Visit Provider Physician Assistant
DX: Z12.31 Encounter for screening mammogram for malignant neoplasm of breast (principal)
CPT/HCPCS: 77063; 77067

== ENCOUNTER → 2022-03-22 15:20 | Outpatient (BNVA) | payer MEDICARE, MEDICAID, SELFPAY | PROVIDERS: PCP Physician Assistant; Visit Provider Advanced Practice Midwife | DX: Z13.89 Encounter for screening for other disorder (principal) ==

== ENCOUNTER 2022-10-10 07:59 | Outpatient (REF) | payer MEDICARE, MEDICAID, SELFPAY ==
[2022-10-10 08:40] LABS: Estimated Average Glucose 163 mg/dL; Hemoglobin A1c % 7.3 %
[2022-10-10 09:13] LABS: Alanine Aminotransferase 12 U/L (0-31); Alkaline Phosphatase 72 U/L (39-117); Anion Gap 15 (12-20); Aspartate Amino Transferase 15 U/L (5-31); Bilirubin Total 0.5 mg/dL (0.0-1.0); Blood Urea Nitrogen 23 mg/dL (9-16); Calcium 9.4 mg/dL (8.4-10.2); Carbon Dioxide 22 mmol/L (22-29); Chloride 103 mmol/L (96-108); Cholesterol 120 mg/dL; Estimated Glomerular Filt Rate > 60; Glucose Fasting 134 mg/dL (60-99); HDL Cholesterol 42 mg/dL; LDL Cholesterol Calculated 50 mg/dl; Potassium 3.9 mmol/L (3.3-5.1); Sodium 136 mmol/L (135-145); Total Protein 6.7 g/dL (6.5-8.0); Triglycerides 140 mg/dL
[2022-10-10 09:32] LABS: TSH reflex Free T4 1.86 uIU/mL (0.32-4.0)
[2022-10-10 10:00] LABS: Creatinine Urine 28.13 mg/dL; Microalbumin Urine < 5.0 mg/L
== END 2022-10-10 08:00 | disposition home or self-care (01) ==
LOC: HO.LAB 07:59
PROVIDERS: PCP Physician Assistant; Visit Provider Physician Assistant
DX: E11.65 Type 2 diabetes mellitus with hyperglycemia (principal); I10 Essential (primary) hypertension; E78.2 Mixed hyperlipidemia
CPT/HCPCS: 36415; 80053; 80061; 82043; 83036; 84443

== ENCOUNTER 2022-10-10 08:46 | Outpatient (AMB) | payer MEDICARE, MEDICAID, SELFPAY ==
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
[2022-10-10 08:52] VITALS: BP 128/78; PULSE 78; O2SAT 100; BMI 36.2
== END 2022-10-10 09:33 | disposition home or self-care (01) ==
PROVIDERS: PCP Physician Assistant; Visit Provider Physician Assistant
DX: J45.20 Mild intermittent asthma, uncomplicated (principal); E66.01 Morbid (severe) obesity due to excess calories; Z68.36 Body mass index [BMI] 36.0-36.9, adult; I10 Essential (primary) hypertension; E11.65 Type 2 diabetes mellitus with hyperglycemia; E78.2 Mixed hyperlipidemia; H90.42 Sensorineural hearing loss, unilateral, left ear, with unrestricted hearing on the contralateral side
CPT/HCPCS: 99214

== ENCOUNTER 2023-01-10 09:03 | Outpatient (AMB) | payer MEDICARE, MEDICAID, SELFPAY ==
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
== END 2023-01-10 10:18 | disposition home or self-care (01) ==
LOC: HO.HMGH 09:03
PROVIDERS: PCP Physician Assistant; Visit Provider Physician Assistant
DX: E11.65 Type 2 diabetes mellitus with hyperglycemia (principal); I10 Essential (primary) hypertension; E78.2 Mixed hyperlipidemia
CPT/HCPCS: G2252

== ENCOUNTER 2023-01-11 11:28 | Outpatient (REF) | payer MEDICARE, MEDICAID, SELFPAY ==
[2023-01-11 13:22] LABS: Hemoglobin 12.9 g/dl (12.0-16.0); Mean Corpuscular HGB Conc 33.1 g/dl (31.0-35.0); Mean Corpuscular Volume 81.6 fL (80.0-98.0); Mean Platelet Volume 9.5 fL (9.4-12.3); Platelet Count 255 X10*3/uL (160-400); Red Blood Count 4.78 X10*6/uL (4.20-5.50); Red Cell Distribution Width 13.7 % (11.0-16.0); White Blood Count 5.7 X10*3/uL (4.8-10.8)
[2023-01-11 14:05] LABS: Estimated Average Glucose 157 mg/dL; Hemoglobin A1c % 7.1 % (<6.0)
[2023-01-11 14:06] LABS: Alanine Aminotransferase 10 U/L (0-31); Albumin Level 4.3 g/dL (3.5-5.0); Alkaline Phosphatase 75 U/L (39-117); Anion Gap 15 (12-20); Aspartate Amino Transferase 13 U/L (5-31); Bilirubin Total 0.5 mg/dL (0.0-1.0); Blood Urea Nitrogen 16 mg/dL (9-16); Calcium 9.7 mg/dL (8.4-10.2); Carbon Dioxide 25 mmol/L (22-29); Chloride 103 mmol/L (96-108); Cholesterol 130 mg/dL (<200); Estimated Glomerular Filt Rate > 60; Glucose Fasting 132 mg/dL (60-99); HDL Cholesterol 44 mg/dL (>40); LDL Cholesterol Calculated 59 mg/dL (<100); Potassium 3.9 mmol/L (3.3-5.1); Sodium 139 mmol/L (135-145); Total Protein 7.1 g/dL (6.5-8.0); Triglycerides 136 mg/dL (<150)
== END 2023-01-11 11:29 | disposition home or self-care (01) ==
LOC: HO.10HDL 11:28
PROVIDERS: Visit Provider Physician Assistant
DX: E11.65 Type 2 diabetes mellitus with hyperglycemia (principal); E78.5 Hyperlipidemia, unspecified
CPT/HCPCS: 36415; 80053; 80061; 83036; 85027

== ENCOUNTER 2023-04-17 08:11 | Outpatient (REF) | payer MEDICARE, SELFPAY | END 2023-04-17 08:12 | disposition home or self-care (01) | LOC: HO.MAMMO 08:11 | PROVIDERS: PCP Physician Assistant; Visit Provider Physician Assistant | DX: Z12.31 Encounter for screening mammogram for malignant neoplasm of breast (principal) | CPT/HCPCS: 77063; 77067 ==

== ENCOUNTER → 2023-04-17 08:30 | Outpatient (BNV) | payer MEDICARE, SELFPAY | PROVIDERS: PCP Physician Assistant; Visit Provider Radiology Diagnostic Radiology | DX: Z12.31 Encounter for screening mammogram for malignant neoplasm of breast (principal) | CPT/HCPCS: 77063; 77067 ==

== ENCOUNTER 2023-04-18 16:00 | Outpatient (REF) | payer MEDICARE, SELFPAY | END 2023-04-18 16:01 | disposition home or self-care (01) | LOC: HO.SH 16:00 | PROVIDERS: Visit Provider Physician Assistant | DX: Z01.118 Encounter for examination of ears and hearing with other abnormal findings (principal); H90.42 Sensorineural hearing loss, unilateral, left ear, with unrestricted hearing on the contralateral side | CPT/HCPCS: 92557; 92567 ==

== ENCOUNTER 2023-05-09 09:06 | Outpatient (AMB) | payer MEDICARE, MEDICAID, SELFPAY ==
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
[2023-05-09 09:28] VITALS: BP 108/68; PULSE 78; O2SAT 97; BMI 34.9
== END 2023-05-09 10:19 | disposition home or self-care (01) ==
PROVIDERS: PCP Physician Assistant; Visit Provider Physician Assistant
DX: E11.65 Type 2 diabetes mellitus with hyperglycemia (principal); I10 Essential (primary) hypertension; Z68.34 Body mass index [BMI] 34.0-34.9, adult; E66.09 Other obesity due to excess calories; E78.2 Mixed hyperlipidemia; M21.961 Unspecified acquired deformity of right lower leg
CPT/HCPCS: 83036; 99214

== ENCOUNTER 2023-05-30 07:18 | Outpatient (AMB) | payer MEDICARE, SELFPAY ==
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
[2023-05-30 07:45] VITALS: BP 112/70; BMI 35.0
== END 2023-05-30 08:40 | disposition home or self-care (01) ==
LOC: HO.HWS 07:19
PROVIDERS: PCP Physician Assistant; Visit Provider Advanced Practice Midwife
DX: Z01.419 Encounter for gynecological examination (general) (routine) without abnormal findings (principal)
CPT/HCPCS: 99396

== ENCOUNTER → 2023-05-30 07:18 | Outpatient (BNVA) | payer MEDICARE, SELFPAY | PROVIDERS: PCP Physician Assistant; Visit Provider Advanced Practice Midwife ==

== ENCOUNTER 2023-07-30 12:46 | Outpatient (AMB) | payer MEDICARE, SELFPAY ==
[2023-07-30 12:45] VITALS: BP 122/68; PULSE 94; O2SAT 95; BMI 35.4
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
== END 2023-07-30 15:11 | disposition home or self-care (01) ==
PROVIDERS: PCP Physician Assistant; Visit Provider Physician Assistant
DX: Z01.818 Encounter for other preprocedural examination (principal); M21.961 Unspecified acquired deformity of right lower leg; E11.65 Type 2 diabetes mellitus with hyperglycemia; I10 Essential (primary) hypertension; E78.2 Mixed hyperlipidemia
CPT/HCPCS: 99214

== ENCOUNTER 2023-08-02 12:20 | Outpatient (REF) | payer MEDICARE, SELFPAY ==
--- NOTE | 2023-08-02 12:35 | ECG_ITS ---
Test Reason : PREOP Blood Pressure : / mmHG Vent. Rate : 088 BPM Atrial Rate : 088 BPM P-R Int : 190 ms QRS Dur : 106 ms QT Int : 364 ms P-R-T Axes : 064 030 052 degrees QTc Int : 440 ms Normal sinus rhythm Low voltage QRS Possible Inferior infarct (cited on or before 11-APR-2016) Abnormal ECG When compared with ECG of 11-APR-2016 15:38, No significant change was found Referred By: Brady Watson Electronically Signed By:SHARON SHERIDAN
[2023-08-02 13:34] LABS: Hematocrit 40.3 % (37.0-47.0); Hemoglobin 13.1 g/dl (12.0-16.0); Mean Corpuscular HGB Conc 32.5 g/dl (31.0-35.0); Mean Corpuscular Hemoglobin 25.9 pg (27.0-33.0); Mean Corpuscular Volume 79.8 fL (80.0-98.0); Mean Platelet Volume 10.1 fL (9.4-12.3); Platelet Count 296 X10*3/uL (160-400); Red Blood Count 5.05 X10*6/uL (4.20-5.50); Red Cell Distribution Width 14.1 % (11.0-16.0); White Blood Count 6.2 X10*3/uL (4.8-10.8)
[2023-08-02 14:01] LABS: Alanine Aminotransferase 10 U/L (0-31); Albumin Level 4.2 g/dL (3.5-5.0); Alkaline Phosphatase 67 U/L (39-117); Anion Gap 14 (12-20); Aspartate Amino Transferase 13 U/L (5-31); Bilirubin Total 0.3 mg/dL (0.0-1.0); Blood Urea Nitrogen 15 mg/dL (9-16); Calcium 9.8 mg/dL (8.4-10.2); Carbon Dioxide 23 mmol/L (22-29); Chloride 105 mmol/L (96-108); Cholesterol 153 mg/dL (<200); Estimated Glomerular Filt Rate 57; Glucose Fasting 315 mg/dL (60-99); Glucose Random 314 mg/dL (60-115); HDL Cholesterol 46 mg/dL (>40); LDL Cholesterol Calculated 64 mg/dL (<100); Potassium 3.8 mmol/L (3.3-5.1); Sodium 138 mmol/L (135-145); Triglycerides 216 mg/dL (<150)
[2023-08-02 14:17] LABS: Creatinine Urine 28.56 mg/dL; Microalbumin Urine < 5.0 mg/L
== END 2023-08-02 12:21 | disposition home or self-care (01) ==
LOC: HO.LAB 12:20
PROVIDERS: PCP Physician Assistant; Referring Provider Podiatrist Foot & Ankle Surgery; Visit Provider Physician Assistant
DX: Z01.818 Encounter for other preprocedural examination (principal); E78.5 Hyperlipidemia, unspecified; E11.9 Type 2 diabetes mellitus without complications; I10 Essential (primary) hypertension
CPT/HCPCS: 36415; 80053; 80061; 82043; 82570; 85027; 93005

== ENCOUNTER → 2023-08-02 12:35 | Outpatient (BNV) | payer MEDICARE, SELFPAY | PROVIDERS: PCP Physician Assistant; Referring Provider Podiatrist Foot & Ankle Surgery; Visit Provider Internal Medicine | DX: R94.31 Abnormal electrocardiogram [ECG] [EKG] (principal) | CPT/HCPCS: 93010 ==

== ENCOUNTER 2024-01-11 10:00 | Outpatient (AMB) | payer MEDICARE, SELFPAY ==
[2024-01-11 10:05] VITALS: BP 124/74; PULSE 98; O2SAT 96
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
== END 2024-01-11 10:41 | disposition home or self-care (01) ==
PROVIDERS: PCP Physician Assistant; Visit Provider Nurse Practitioner Family
DX: Z98.890 Other specified postprocedural states (principal)

== ENCOUNTER → 2024-01-11 10:00 | Outpatient (BNVA) | payer MEDICARE, SELFPAY | PROVIDERS: PCP Physician Assistant; Visit Provider Nurse Practitioner Family | DX: Z98.890 Other specified postprocedural states (principal) | CPT/HCPCS: 99212 ==

== ENCOUNTER 2024-02-26 09:01 | Outpatient (REF) | payer MEDICARE, SELFPAY ==
[2024-02-26 10:56] LABS: Hematocrit 40.8 % (37.0-47.0); Hemoglobin 13.5 g/dl (12.0-16.0); Mean Corpuscular HGB Conc 33.1 g/dl (31.0-35.0); Mean Corpuscular Hemoglobin 25.8 pg (27.0-33.0); Mean Corpuscular Volume 77.9 fL (80.0-98.0); Mean Platelet Volume 9.7 fL (9.4-12.3); Platelet Count 279 X10*3/uL (160-400); Red Blood Count 5.24 X10*6/uL (4.20-5.50); Red Cell Distribution Width 13.9 % (11.0-16.0); White Blood Count 6.1 X10*3/uL (4.8-10.8)
[2024-02-26 11:03] LABS: Estimated Average Glucose 200 mg/dL; Hemoglobin A1C 238.6382 umol/L; Hemoglobin A1c % 8.6 % (<6.0); Total Hemoglobin (HGBA1C) 3382.3658 umol/L
[2024-02-26 11:09] LABS: Alanine Aminotransferase 17 U/L (0-31); Albumin Level 4.3 g/dL (3.5-5.0); Alkaline Phosphatase 95 U/L (39-117); Anion Gap 17 (12-20); Aspartate Amino Transferase 24 U/L (5-31); Bilirubin Total 0.4 mg/dL (0.0-1.0); Blood Urea Nitrogen 18 mg/dL (9-16); Calcium 9.5 mg/dL (8.4-10.2); Carbon Dioxide 20 mmol/L (22-29); Chloride 102 mmol/L (96-108); Cholesterol 132 mg/dL (<200); Estimated Glomerular Filt Rate > 60; Glucose Fasting 201 mg/dL (60-99); HDL Cholesterol 47 mg/dL (>40); LDL Cholesterol Calculated 47 mg/dL (<100); Potassium 3.9 mmol/L (3.3-5.1); Sodium 135 mmol/L (135-145); Triglycerides 194 mg/dL (<150)
[2024-02-26 12:10] LABS: Creatinine Urine 53.18 mg/dL; Microalbumin Urine < 5.0 mg/L
== END 2024-02-26 09:02 | disposition home or self-care (01) ==
LOC: HO.10HDL 09:01
PROVIDERS: Visit Provider Physician Assistant
DX: I10 Essential (primary) hypertension (principal); E11.65 Type 2 diabetes mellitus with hyperglycemia; E78.2 Mixed hyperlipidemia
CPT/HCPCS: 36415; 80053; 80061; 82043; 82570; 83036; 85027

== ENCOUNTER 2024-03-19 14:23 | Outpatient (AMB) | payer MEDICARE, SELFPAY ==
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
[2024-03-19 14:35] VITALS: BP 126/80; PULSE 114; O2SAT 95; BMI 37.1
== END 2024-03-19 15:23 | disposition home or self-care (01) ==
PROVIDERS: PCP Physician Assistant; Visit Provider Physician Assistant
DX: Z00.00 Encounter for general adult medical examination without abnormal findings (principal); E11.65 Type 2 diabetes mellitus with hyperglycemia; E78.2 Mixed hyperlipidemia; Z98.890 Other specified postprocedural states; Z23 Encounter for immunization

== ENCOUNTER → 2024-03-19 14:23 | Outpatient (BNVA) | payer MEDICARE, SELFPAY | PROVIDERS: PCP Physician Assistant; Visit Provider Physician Assistant | DX: Z00.00 Encounter for general adult medical examination without abnormal findings (principal); Z23 Encounter for immunization; E11.65 Type 2 diabetes mellitus with hyperglycemia; E78.2 Mixed hyperlipidemia; Z98.890 Other specified postprocedural states | CPT/HCPCS: 90471; 90656; 96127; 99396 ==

== ENCOUNTER → 2024-04-22 08:15 | Outpatient (BNV) | payer MEDICARE, SELFPAY | PROVIDERS: PCP Physician Assistant; Visit Provider Internal Medicine | DX: Z12.31 Encounter for screening mammogram for malignant neoplasm of breast (principal) | CPT/HCPCS: 77063; 77067 ==

== ENCOUNTER 2024-04-22 08:34 | Outpatient (REF) | payer MEDICARE, SELFPAY | END 2024-04-22 08:35 | disposition home or self-care (01) | LOC: HO.MAMMO 08:34 | PROVIDERS: PCP Physician Assistant; Visit Provider Physician Assistant | DX: Z12.31 Encounter for screening mammogram for malignant neoplasm of breast (principal) | CPT/HCPCS: 77063; 77067 ==

== ENCOUNTER 2024-04-30 13:01 | Outpatient (REF) | payer MEDICARE, SELFPAY ==
--- NOTE | ~2024-04-30 | US_ITS ---
EXAMINATION: MM DIAGNOSTIC DIGITAL BREAST TOMOSYNTHESIS, LEFT Limited left breast ultrasound. CLINICAL INFORMATION: New focal asymmetry in the upper-outer breast with associated calcifications. COMPARISON: Mammography: Comparison is made with available prior examinations. TECHNIQUE: Digital breast tomosynthesis is performed in both the craniocaudal and mediolateral oblique views along with computer-aided detection (CAD). Synthesized 2D images are generated from the tomosynthesis. Limited left breast ultrasound. FINDINGS: There are scattered areas of fibroglandular density (ACR BI-RADS breast composition Category b). New focal asymmetry with mild distortion in the upper outer breast middle depth with associated amorphous calcifications. No other suspicious abnormal findings. Targeted color Doppler ultrasound demonstrates a solid irregular mass with internal calcifications at 2:00 6 cm from the nipple measuring 11 x 7 x 9 mm which correlates with the mammographic focal asymmetry. US/US breast LT limited mamm only IMPRESSION: Solid irregular mass at 2:00 on ultrasound. Recommend ultrasound-guided core needle biopsy at this time for histology. The findings and recommendations were discussed with the patient the procedure will be scheduled. ASSESSMENT: BI-RADS BI-RADS 4 - Suspicious finding RECOMMENDATION: Biopsy recommended Results were provided to the patient at time of visit by the technologist. This patient's information was entered into a reminder system with a target due date for their next mammogram. Electronically signed by: Gloria Fontaine DO 04/30/2024 02:34 PM JOSE
--- OUTSIDE RECORDS SUMMARY | 2024-04-30 15:10 | XMS_ITS | Encounter Summary ---
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); Diabetic mononeuropathy simplex (CMS/HCC); Dermatophytosis of nail; Pain in toe of left foot; Pain in toe of right foot Social History Tobacco Use Types Packs/Day Years Used Date Smoking Tobacco: Never Assessed Sex and Gender Information Value Date Recorded Sex Assigned at Female 04/20/2024 2:23 PM EST Gender Identity Female 04/20/2024 2:23 PM EST Sexual Orientation Straight 04/20/2024 2: 23 PM EST Job Start Date Occupation Industry Not on file Not on file Not on file documented as of this encounter Last Filed Vital Signs Vital Sign Reading Time Taken Comments Blood Pressure - - Pulse - - Temperature - - Respiratory Rate - - Oxygen Saturation - - Inhaled Oxygen Concentration - - Weight 104 kg (229 lb) 04/21/2024 9:43 AM EST Height 172.7 cm (5' 8 ) 04/21/2024 9:43 AM EST Body Mass Index 34.82 04/21/2024 9:43 AM EST documented in this encounter Progress Notes * Riaz Tuttle DPM - 04/21/2024 10:00 AM EST S Patient seen after surgery on 08/10/2023 right hindfoot fusion medial column fusion and subtalar joint fusion right lower extremity. Patient has progressed to protected weightbearing in fracture boot has been doing much better notes she brought her son today doing well the boot doing well with the bone stimulator has been using topical medication with some improvement of her nail notes her nails elongated painful thickened does report that she is a type II diabetic she requires new diabetic shoes and inserts does report her nails become more painful and achy and too thick for her to cut herself reports worsening numbness burning and tingling to her feet Last PCP visit 01/11/2024 Dr Mike Case MD ROS: GENERAL: Pt denies nausea, fever, vomiting, chills, or shortness of breath. Pt in NAD. CARDIOLOGY: pt denies chest pain, palpitations LUNGS: pt denies shortness of breath MUSCULOSKELETAL: See HPI, otherwise no joint pain or swelling, back pain, or muscle pain. SKIN: see HPI, otherwise no lesions, rash or itching NEURO: No persistent headache, weakness or numbness The remainder of the review of systems is noncontributory PAST MEDICAL HISTORY: There is no problem list on file for this patient. Type 2 diabetes last A1c 7.3 last seen by PCP SOCIAL HISTORY: Social History Tobacco Use Smoking status: Not on file Smokeless tobacco: Not on file Substance Use Topics Alcohol use: Not on file History Never marked as reviewed. ACTIVE MEDICATIONS: Current Outpatient Medications Medication Sig Dispense Refill Acetaminophen (TYLENOL 8 HOUR OR) Take 500 Tablets by mouth 3 times daily. No current facility-administered medications for this visit. ALLERGIES: Patient has no known allergies. PHYSICAL EXAM: Height 5' 8 (1.727 m), weight 229 lb (103.9 kg). Estimated body mass index is 34.82 kg/m?? as calculated from the following: Height as of this encounter: 5' 8 (1.727 m). Weight as of this encounter: 229 lb (103.9 kg). Contracted hammertoes 2 through 5 bilateral PODIATRIC EXAMINATION: GENERAL: Patient appears well nourished, with NAD. VASCULAR: Dorsalis pedis pulses are 2/4 bilaterally and Posterior tibial pulses are 2/4 bilaterally. Capillary filling time within normal limits the digits. No pallor on elevation or rubor on dependency. Positive hair growth. No varicosities. Denies rest pain or claudication pain. NEUROLOGICAL: Sharp/dull sensation diminished bilaterally , protective sensation intact 10/10 with 5.07 semmes case bilaterally, vibratory sensation with tuning fork intact to the tibial tuberosity. DERMATOLOGICAL:.Normal scar formation Toenails: Left Toenail(s) 1-5: Crumbling upon debridement, subungual debris, discoloration, dystrophy, elongation, mycotic appearance, onychomycosis, pain and thickening. Right Toenail(s) 1-5: Crumbling upon debridement, subungual debris, discoloration, dystrophy, elongation, mycotic appearance, onychomycosis, pain and thickening. 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 Diabetic mononeuropathy simplex (CMS/HCC) 3. Dermatophytosis of nail 4. Pain in toe of left foot 5. Pain in toe of right foot PLAN: Pt was seen and examined, history reviewed. Risks and benefits of disuse osteopenia were discussed and reviewed radiographs reviewed would recommend patient continue foot barrier fracture boot she is showing some signs of consolidation I wouldrecommend she continues with bone stimulator consistently Radiographs reviewed there are portions with appropriate bone consolidation with gaps at union sites improvement noted on plain radiographs Patient allowed to put 100% of her body weight utilizing a fracture boot to her right lower extremity and her pain tolerance Continue bone stimulator New x-rays ordered Prescription given for custom inserts Prescription given for diabetic shoes Discussed with patient transitioning to custom insole and AFO brace did discussed with patient thatif she gets this pseudofusion without pain and is tolerable and orthotic insole that is still success of the surgery however if she continues to have a nonosseous nonunion that becomes symptomatic surgical intervention and revision may be required of her metatarsal bones specifically to her met cuneiform first metatarsal medial cuneiform we will continue to recommend bone stimulator progressive weightbearing into custom insole prescribed to stave off disuse osteopenia seen on plain radiographs;further workup may include a CT scan complaint of dermatophytosis of right great toenail discussed and reviewed Clotrimazole prescribed can continue with nail is clearing Follow-up in 1 month Debridement of mycotic toenails 6-10: Verbal informed consent was obtained from the patient. 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
--- OUTSIDE RECORDS SUMMARY | 2024-04-30 15:10 | XMS_ITS | Clinical Summary ---
Author Organization 175 [facility] Address [address] [place] [address] Phone Care Team Providers Care Spool Hauler Name Role Phone Mike Case MD Primary Care Provider +1- [phone] Allergies No known active allergies Medications Medication Sig Dispensed Refills Start Date End Date Status acetaminophen (TYLENOL 8 HOUR ORAL) Take 500 Tablets by mouth 3 times daily. Active clotrimazole (LOTRIMIN) 1 % external solution Apply topically 2 (two) times a day. Apply to nails and skin 30 mL 2 02/26/2024 04/22/2024 Encounters Date Type Department Care Team Description 04/21/2024 10:00 AM EST Office Visit Orthopedic 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); Follow-up exam; Dermatophytosis of nail from Last 3 Months Social History Tobacco Use Types Packs/Day Years Used Date Smoking Tobacco: Never Assessed Sex and Gender Information Value Date Recorded Sex Assigned at Female 04/20/2024 2:23 PM EST Gender Identity Female 04/20/2024 2:23 PM EST Sexual Orientation Straight 04/20/2024 2: 23 PM EST Job Start Date Occupation Industry Not on file Not on file Not on file Last Filed Vital Signs Vital Sign Reading Time Taken Comments Blood Pressure - - Pulse - - Temperature - - Respiratory Rate - - Oxygen Saturation - - Inhaled Oxygen Concentration - - Weight 104 kg (229 lb) 04/21/2024 9:43 AM EST Height 172.7 cm (5' 8 ) 04/21/2024 9:43 AM EST Body Mass Index 34.82 04/21/2024 9:43 AM EST Plan of Treatment Upcoming Encounters Date Type Department Care Team (Late st Contact Info) Description 05/21/2024 8:30 AM EST Office Visit Orthopedic [facility] [place] [address] [phone] Riaz Tuttle DPM [address] [phone] Health Maintenance Due Date Last Done Comments Breast Cancer Screening 1960 Diabetes: Annual Foot Exam 02/07/1970 Diabetes: Annual Retina Eye Exam 02/07/1970 Cervical Cancer Screening: Pap Smear 02/07/1981 Diabetes: Annual GFR (Glomerular Filtration Rate) 06/17/2014 06/17/2013 Cholesterol Screening (Lipid Panel) 10/23/2023 06/17/2013 Colorectal Cancer Screening: Colonoscopy 10/23/2023 Depression Screening 10/23/2023 HIV Screening 10/23/2023 Hepatitis C Screening 10/23/2023 Social Influencers of Health Screening 10/23/2023 COVID-19 Vaccine ( season) 2023 03/05/2023, 02/15/2022, 09/21/2021, Additional history exists Diabetes: Annual Urine Albumin-Creatinine Ratio (uACR) 04/21/2024 Diabetes: Blood Sugar Control Test (HGBA1C) 04/21/2024 06/17/2013 DTaP,Tdap,and Td Vaccines (2 - Td or Tdap) 12/28/2026 12/28/2016 Zoster Vaccines Completed 12/12/2018, 09/01, 10/07/2017, Additional history exists RSV Immunization Patients 60+ Years Old Completed 03/05/2023 Pneumococcal Vaccine: Pediatrics (0 to 5 Years) and At-Risk Patients (6 to 64 Years) Completed 09/21/2023, 12/16/2018 Influenza Vaccine Completed 03/19/2024, , 12/28/2021, Additional history exists HIB Vaccines Aged Out No longer eligi ble based on patient's age to complete this topic HPV Vaccines Aged Out No longer eligi ble based on patient's age to complete this topic Hepatitis A Vaccines Aged Out No long er eligible based on patient's age to complete this topic Hepatitis B Vaccines Aged Out No long er eligible based on patient's age to complete this topic IPV Vaccines Aged Out No longer eligi ble based on patient's age to complete this topic MMR Vaccines Aged Out No longer eligi ble based on patient's age to complete this topic Meningococcal ACWY Vaccine Aged Out N o longer eligible based on patient's age to complete this topic RSV Immunization Patients Under 20 months Aged Out No longer eligible based on patient's age to complete this topic Varicella Vaccines Aged Out No longer eligible based on patient's age to complete this topic Procedures Procedure Name Priority Date/Time Associated Diagnosis Comments XR FOOT 3+ VIEWS RIGHT Routine 04/21/2024 9:51 AM EST Post-operative state XR FOOT 3+ VIEWS RIGHT Routine 03/19/2024 9:28 AM EST Follow-up exam XR FOOT 3+ VIEWS RIGHT Routine 02/26/2024 10:31 AM EST Follow-up exam from Last 3 Months Results * XR Foot 3+ Views Right (04/21/2024 9:51 AM EST) Only the most recent of3 resultswithin the time period is included. Anatomical Region Laterality Modality Lower Extremities, Foot Right Computed Radiography Narrative 04/21/2024 11:49 AM EST Right foot 3 views Stable postoperative changes Hardware intact out signs of failure Trabeculation through subtalar joint noted signs of trabeculation through the TN joint noted Lack of trabeculation and bone formation in between first metatarsal medial cuneiform present without signs of hardware failure Riaz Tuttle DPM IMG XR PROCEDURES from Last 3 Months Advance Directives Documents on File Type Date Recorded Patient Gear Hobber Expl anation Health Care Decision (hx) 08/13/2023 AGNIESZKA BULLARD DIRECTIVE Care Teams Spool Hauler Relationship Specialty Start Date End Date Mike Case MD [facility] [address] [place] [address] [address] [place] [address] PCP - General 03/19/23
== END 2024-04-30 13:02 | disposition home or self-care (01) ==
LOC: HO.MAMMO 13:01
PROVIDERS: PCP Physician Assistant; Visit Provider Physician Assistant
DX: R92.1 Mammographic calcification found on diagnostic imaging of breast (principal)
CPT/HCPCS: 76642; 77061; 77065

== ENCOUNTER → 2024-04-30 13:15 | Outpatient (BNV) | payer MEDICARE, SELFPAY | PROVIDERS: PCP Physician Assistant; Visit Provider Internal Medicine | DX: N63.21 Unspecified lump in the left breast, upper outer quadrant (principal) | CPT/HCPCS: 76642; 77065; G0279 ==

== ENCOUNTER 2024-07-09 08:30 | Outpatient (AMB) | payer MEDICARE, MEDICAID, SELFPAY ==
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
--- OUTSIDE RECORDS SUMMARY | 2024-07-09 08:45 | XMS_ITS | Clinical Summary ---
Author Organization 175 [facility] Address [address] [place] [address] Phone Care Team Providers Care Senior Major Gifts Officer Name Role Phone Mike Case MD Primary Care Provider +1- [phone] Allergies No known active allergies Medications acetaminophen (TYLENOL 8 HOUR ORAL) Take 500 Tablets by mouth 3 times daily. Active clotrimazole (LOTRIMIN) 1 % cream Apply topically 2 (two) times a day. 30 g 3 07/03/19 25 025 Active methylPREDNISo lone (MEDROL DOSPAK) 4 mg tablet Take 1 tablet (4 mg total) by mouth See administration instructions for 6 days. 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); Post-operative state; Diabetic mononeuropathy simplex ([facility]); Dermatophytosis of nail 04/21/2024 10:00 AM EST Office Visit Orthopedic Surgery [facility] [address] [phone] Riaz Tuttle DPM 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); Diabetic mononeuropathy simplex (CMS/HCC); Dermatophytosis of nail; Pain in toe of left foot; Pain in toe of right foot from Last 3 Months Social History Tobacco Use Types Packs/Day Years Used Date Smoking Tobacco: Never Assessed Comments Unknown Sex and Gender Information Value Date Recorded Sex Assigned at Female 04/20/2024 2:23 PM EST Legal Sex Female 5:18 PM EST Gender Identity Female 04/20/2024 2:23 PM EST Sexual Orientation Straight 04/20/2024 2: 23 PM EST Last Filed Vital Signs Vital Sign Reading Time Taken Comments Blood Pressure - - Pulse - - Temperature - - Respiratory Rate - - Oxygen Saturation - - Inhaled Oxygen Concentration - - Weight 104 kg (229 lb) 07/02/2024 8:22 AM EDT Height 172.7 cm (5' 7.99 ) 07/02/2024 8:22 AM ED T Body Mass Index 34.83 07/02/2024 8:22 AM EDT Plan of Treatment Upcoming Encounters Date Type Department Care Team (Late st Contact Info) Description 08/06/2024 8:45 AM EDT Office Visit Orthopedic [facility] [address] [phone] Riaz Tuttle DPM [address] [address] Health Maintenance Due Date Last Done Comments [...] 09/01, 10/07/2017, Additional history exists RSV Immunization Adult Patients Completed 03/05/2023 Pneumococcal Vaccine: 50+ Years Completed 09/21/2023, 12/16/2018 Pneumococcal Vaccine: Pediatrics (0 to 5 Years) [...] patient's age to complete this topic Meningococcal B Vaccine Aged Out No l onger eligible based on patient's age to complete this topic RSV Immunization Patients Under 20 months Aged Out No longer eligible based on patient's age to complete this topic Varicella Vaccines Aged Out No longer eligible based on patient's age to complete this topic Procedures Procedure Name Priority Date/Time Associated Diagnosis Comments XR FOOT 3+ VIEWS RIGHT Routine 07/02/2024 8:26 AM EDT Follow-up exam XR FOOT 3+ VIEWS RIGHT Routine 05/21/2024 8:26 AM EST Post-operative state XR FOOT 3+ VIEWS RIGHT Routine 04/21/2024 9:51 AM EST Post-operative state from Last 3 Months Results * XR Foot 3+ Views Right (07/02/2024 8:26 AM EDT) Only the most recent of3 resultswithin the time period is included. Anatomical Region Laterality Modality Lower Extremities, Foot Right Computed Radiography Narrative 07/02/2024 6:49 PM EDT Right foot 3 views Postoperative changes noted hardware is still intact without signs of failure us Riaz Tuttle DPM IMG XR PROCEDURES Final R esult from Last 3 Months Insurance [place] - [place] [facility] [place] [id number] Advance Directives Documents on File Type Date Recorded Patient Testing Machine Operator Expl anation Health Care Decision (hx) 08/13/2023 AGNIESZKA BULLARD DIRECTIVE Care Teams Senior Major Gifts Officer Relationship Specialty Start Date End Date Mike Case MD [facility] [place] [facility] [address] [place] [address] [address] [place] [address] PCP - General 03/19/23
--- OUTSIDE RECORDS SUMMARY | 2024-07-09 08:45 | XMS_ITS | Clinical Summary ---
Author Organization [facility] Address [address] [place] [address] Care Team Providers Care Corporate Tax Preparer Name Role Phone Unavailable Primary Care Provider Unavailabl e Social History Tobacco Use Types Packs/Day Years Used Date Smoking Tobacco: Never Assessed Sex and Gender Information Value Date Recorded Sex Assigned at Not on file Gender Identity Not on file Sexual Orientation Not on file Job Start Date Occupation Industry Not on file Not on file Not on file Plan of Treatment Not on file [address] [phone]
[2024-07-09 08:46] VITALS: BP 140/88; PULSE 90; RESP 20; O2SAT 96; BMI 35.9
== END 2024-07-09 09:14 | disposition home or self-care (01) ==
PROVIDERS: PCP Physician Assistant; Visit Provider Surgery
DX: N63.20 Unspecified lump in the left breast, unspecified quadrant (principal)
CPT/HCPCS: 99203

== ENCOUNTER → 2024-07-09 09:00 | Outpatient (BNV) | payer MEDICARE, MEDICAID, SELFPAY | PROVIDERS: PCP Physician Assistant; Visit Provider Internal Medicine | DX: N63.21 Unspecified lump in the left breast, upper outer quadrant (principal) | CPT/HCPCS: 19083; 77065 ==

== ENCOUNTER 2024-07-09 09:22 | Outpatient (REF) | payer MEDICARE, MEDICAID, SELFPAY ==
--- NOTE | ~2024-07-09 | MM_ITS ---
PROCEDURE: ULTRASOUND-GUIDED LEFT BREAST BIOPSY CLINICAL INFORMATION: Solid mass in the left breast at 2:00 with associated calcifications. COMPARISON: Priors on PACS. TECHNIQUE: The details of the procedure, as well as the risks, benefits, and alternatives to the procedure were explained to the patient in detail and all of her questions were answered, after which, written informed consent was obtained. PROCEDURE: Prior to the procedure, sonography revealed a solid irregular mass at 2:00 with associated calcifications.. A time-out was performed, the lesion intended for biopsy was targeted and the skin of the left breast was then prepped and draped in the usual sterile fashion. Using sonographic guidance, sterile technique, and 1% lidocaine without epinephrine for local anesthesia, a total of 4 cores were obtained through the targeted area with a 14-gauge biopsy device. At the completion of tissue sampling, a single coil metallic clip was deposited at the biopsy site. An appropriate sample was obtained. The postprocedure 2-view direct digital mammogram reveals satisfactory positioning of the biopsy clip. The patient tolerated the procedure well and, after assuring adequate hemostasis, was discharged in good condition after reviewing postbiopsy breast care instructions. Final pathology results are pending. MM/MM tomosynthesis diagnostic LT IMPRESSION: 1. Uncomplicated sonographically-guided core biopsy of the left breast. The 2-view direct digital postprocedure mammogram reveals satisfactory positioning of the biopsy clip. 2. Final pathology results are pending. A separate report with final recommendations will be issued once these results are made available. Electronically signed by: Gloria Fontaine DO 07/09/2024 12:14 PM EDT
--- OUTSIDE RECORDS SUMMARY | 2024-07-09 10:04 | XMS_ITS | Clinical Summary ---
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; Arthritis of right ankle 05/21/2024 8:30 AM EST Office Visit [facility] [address] [phone] Riaz Tuttle DPM 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); Post-operative state; Diabetic mononeuropathy simplex ([facility]); Dermatophytosis of nail 04/21/2024 10:00 AM EST Office Visit Orthopedic Surgery [facility] [address] [phone] Riaz Tuttle DPM Nonunion of bone after [...] 08/06/2024 8:45 AM EDT Office Visit Orthopedic [facility] [address] [phone] Riaz Tuttle DPM [address] [address] Health Maintenance Due Date Last Done Comments [...] Last 3 Months Insurance [place]ID - [place] [facility] [place] [id number] Advance Directives Documents on File Type Date Recorded Patient Licensed Midwife Expl anation Health Care Decision (hx) 08/13/2023 AGNIESZKA BULLARD DIRECTIVE Care Teams Stained Glass Window Designer Relationship Specialty Start Date End Date Mike Case MD [facility] [place] [facility] [address] [place] [address] [address] [place] [address] PCP - General 03/19/23
[2024-07-09] MEDS: Sodium Bicarbonate 8.4% 50 MEQ/50 ML VIAL SUBCUT (10:07)
[2024-07-09] MEDS: Lidocaine HCl 1 % 20 ML VIAL 18 ML SUBCUT (10:07)
== END 2024-07-09 09:23 | disposition home or self-care (01) ==
LOC: HO.MAMMO 09:22
PROVIDERS: PCP Physician Assistant; Visit Provider Surgery
DX: N63.21 Unspecified lump in the left breast, upper outer quadrant (principal); C50.912 Malignant neoplasm of unspecified site of left female breast
CPT/HCPCS: 19083; 77061; 77065; 88305; 88341; 88342; 88360; 99202; A4648; J2003

== ENCOUNTER 2024-07-16 08:32 | Outpatient (REF) | payer MEDICARE, MEDICAID, SELFPAY ==
--- OUTSIDE RECORDS SUMMARY | 2024-07-16 08:48 | XMS_ITS | Clinical Summary ---
Author Organization [facility] Address [address] [place] [address] Care Team Providers Care Registration Clerk Name Role Phone Unavailable Primary Care Provider [...] file Plan of Treatment Not on file [address] [address]
--- OUTSIDE RECORDS SUMMARY | 2024-07-16 08:48 | XMS_ITS | Clinical Summary ---
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; Arthritis of right ankle 05/21/2024 8:30 AM EST Office Visit [facility] [address] [phone] Riaz Tuttle DPM 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); Post-operative state; Diabetic mononeuropathy simplex ([facility] V24, [facility] V28); Dermatophytosis of nail 04/21/2024 10:00 AM EST Office Visit Orthopedic [facility] [address] [phone] Riaz Tuttle DPM 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); Diabetic mononeuropathy simplex ([facility] V24, [facility] V28); Dermatophytosis of nail; Pain in toe of [...] 08/06/2024 8:45 AM EDT Office Visit Orthopedic [place] [address] [phone] Riaz Tuttle DPM [address] [address] Health Maintenance Due Date Last Done Comments [...] without signs of failure us Riaz Tuttle DPPamela IMG XR PROCEDURES Final R esult from Last 3 Months Insurance [place]ID - [place] [facility] [place] [id number] Advance Directives Documents on File Type Date Recorded Patient Conference Specialist Expl anation Health Care Decision (hx) 08/13/2023 AGNIESZKA BULLARD DIRECTIVE Care Teams Line Assembler Aircraft Relationship Specialty Start Date End Date Mike Case MD [place] [facility] [place] [facility] [address] [place] [address] [address] [place] [address] PCP - General 03/19/23
[2024-07-16 09:53] LABS: Hematocrit 42.5 % (37.0-47.0); Hemoglobin 13.9 g/dl (12.0-16.0); Mean Corpuscular HGB Conc 32.7 g/dl (31.0-35.0); Mean Corpuscular Hemoglobin 25.7 pg (27.0-33.0); Mean Corpuscular Volume 78.7 fL (80.0-98.0); Mean Platelet Volume 9.8 fL (9.4-12.3); Platelet Count 298 X10*3/uL (160-400); Red Cell Distribution Width 14.2 % (11.0-16.0); White Blood Count 7.4 X10*3/uL (4.8-10.8)
[2024-07-16 11:32] LABS: Alanine Aminotransferase 19 U/L (0-31); Albumin Level 4.6 g/dL (3.5-5.0); Alkaline Phosphatase 85 U/L (39-117); Anion Gap 17 (12-20); Aspartate Amino Transferase 21 U/L (5-31); Bilirubin Total 0.5 mg/dL (0.0-1.0); Blood Urea Nitrogen 21 mg/dL (9-16); Calcium 9.7 mg/dL (8.4-10.2); Carbon Dioxide 23 mmol/L (22-29); Chloride 103 mmol/L (96-108); Cholesterol 140 mg/dL (<200); Estimated Glomerular Filt Rate 57; Glucose Fasting 196 mg/dL (60-99); HDL Cholesterol 43 mg/dL (>40); LDL Cholesterol Calculated 60 mg/dL (<100); Potassium 3.8 mmol/L (3.3-5.1); Sodium 139 mmol/L (135-145); Total Protein 7.3 g/dL (6.5-8.0); Triglycerides 188 mg/dL (<150)
[2024-07-16 12:13] LABS: Estimated Average Glucose 186 mg/dL; Hemoglobin A1C 230.0323 umol/L; Hemoglobin A1c % 8.1 % (<6.0); Total Hemoglobin (HGBA1C) 3567.6038 umol/L
[2024-07-16 13:36] LABS: Creatinine Urine 59.11 mg/dL; Microalbum/Creatinine Ratio Ur 8.4 ug/mg cr (<30)
== END 2024-07-16 08:33 | disposition home or self-care (01) ==
LOC: HO.10HDL 08:32
PROVIDERS: Visit Provider Physician Assistant
DX: I10 Essential (primary) hypertension (principal); E11.65 Type 2 diabetes mellitus with hyperglycemia; E78.2 Mixed hyperlipidemia; E66.812 Obesity, class 2; Z98.890 Other specified postprocedural states; C50.912 Malignant neoplasm of unspecified site of left female breast
CPT/HCPCS: 36415; 80053; 80061; 82043; 82570; 83036; 85027; 96127; 99212

== ENCOUNTER 2024-07-16 08:59 | Outpatient (AMB) | payer MEDICARE, SELFPAY ==
[2024-07-16 09:20] VITALS: BP 122/86; PULSE 102; TEMP 36.1; O2SAT 96; BMI 37.1
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
--- OUTSIDE RECORDS SUMMARY | 2024-07-16 09:35 | XMS_ITS | Clinical Summary ---
Author Organization [facility] Address [address] [place] [address] Care Team Providers Care Manager Merchandising Name Role Phone Unavailable Primary Care Provider [...] of Treatment Not on file [place] [address] [address]
--- OUTSIDE RECORDS SUMMARY | 2024-07-16 09:35 | XMS_ITS | Clinical Summary ---
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; Arthritis of right ankle 05/21/2024 8:30 AM EST Office Visit [facility] [address] [phone] Riaz Tuttle DPM 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); Post-operative state; Diabetic mononeuropathy simplex ([facility] V24, [facility] V28); Dermatophytosis of nail 04/21/2024 10:00 AM EST Office Visit [facility] [address] [phone] Riaz Tuttle DPM 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); Diabetic mononeuropathy simplex ([facility] V24, [facility] V28); Dermatophytosis of nail; Pain in toe [...] 08/06/2024 8:45 AM EDT Office Visit [facility] [place] [address] [phone] Riaz Tuttle DPM [address] [address] Health Maintenance Due Date Last Done Comments [...] Last 3 Months Insurance [place]ID - [place] [facility] [place] [id number] Advance Directives Documents on File Type Date Recorded Patient Senior Office Support Assistant Sosa Expl anation Health Care Decision (hx) 08/13/2023 AGNIESZKA BULLARD DIRECTIVE Care Teams Staff Anesthetist Relationship Specialty Start Date End Date Mike Case MD [facility] [address] [place] [address] [address] [place] [address] PCP - General 03/19/23
== END 2024-07-16 10:23 | disposition home or self-care (01) ==
LOC: HO.HMCH 09:00
PROVIDERS: PCP Physician Assistant; Visit Provider Physician Assistant
DX: E11.65 Type 2 diabetes mellitus with hyperglycemia (principal); C50.912 Malignant neoplasm of unspecified site of left female breast; E66.812 Obesity, class 2; Z68.37 Body mass index [BMI] 37.0-37.9, adult; E78.2 Mixed hyperlipidemia; Z98.890 Other specified postprocedural states

== ENCOUNTER 2024-07-30 08:39 | Outpatient (AMB) | payer MEDICARE, MEDICAID, SELFPAY ==
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
[2024-07-30 08:54] VITALS: BP 122/70; PULSE 87; BMI 37.4
--- OUTSIDE RECORDS SUMMARY | 2024-07-30 08:55 | XMS_ITS | Clinical Summary ---
Author Organization [facility] Address [address] [place] [address] Care Team Providers Care Residency Program Coordinator Name Role Phone Unavailable Primary Care Provider [...] of Treatment Not on file [place] [address] [phone]
--- OUTSIDE RECORDS SUMMARY | 2024-07-30 08:55 | XMS_ITS | Clinical Summary ---
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; Arthritis of right ankle 05/21/2024 8:30 AM EST Office Visit [facility] [address] [phone] Riaz Tuttle DPM 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); Post-operative state; Diabetic mononeuropathy simplex ([facility] V24, [facility] V28); Dermatophytosis of nail from Last 3 Months [...] 08/06/2024 8:45 AM EDT Office Visit [facility] [place] [address] [phone] Riaz Tuttle, DPM [address] [address] Health Maintenance Due Date Last Done Comments [...] Routine 05/21/2024 8:26 AM EST Post-operative state from Last 3 Months Results * XR Foot 3+ Views Right (07/02/2024 8:26 AM EDT) Only the most recent of2 resultswithin the time period is included. Anatomical Region Laterality Modality Lower Extremities, Foot Right Computed Radiography Narrative 07/02/2024 6:49 PM EDT Right foot 3 views Postoperative changes noted hardware is still intact without signs of failure us Riaz Tuttle DPM IMG XR PROCEDURES Final R esult from Last 3 Months Insurance [place] - [place] [facility] [place] [id number] Advance Directives Documents on File Type Date Recorded Patient Fly Setter Expl anation Health Care Decision (hx) 08/13/2023 AD JUAN MIGUEL DIRECTIVE Care Teams Charging Plug Placer Relationship Specialty Start Date End Date Mike Case MD [facility] [address] [place] [address] [address] [place] [id number] PCP - General 03/19/23
== END 2024-07-30 09:16 | disposition home or self-care (01) ==
LOC: HO.HGS 08:40
PROVIDERS: PCP Physician Assistant; Visit Provider Surgery
DX: C50.912 Malignant neoplasm of unspecified site of left female breast (principal)
CPT/HCPCS: 99214

== ENCOUNTER → 2024-07-30 08:39 | Outpatient (BNVA) | payer MEDICARE, MEDICAID, SELFPAY | PROVIDERS: PCP Physician Assistant; Visit Provider Surgery | DX: C50.412 Malignant neoplasm of upper-outer quadrant of left female breast (principal); N63.20 Unspecified lump in the left breast, unspecified quadrant | CPT/HCPCS: 99212 ==

== ENCOUNTER → 2024-09-03 08:30 | Outpatient (BNV) | payer MEDICARE, MEDICAID, SELFPAY | PROVIDERS: Admitting Provider Surgery; PCP Physician Assistant; Visit Provider Radiology Diagnostic Radiology | DX: C50.912 Malignant neoplasm of unspecified site of left female breast (principal) | CPT/HCPCS: 78195 ==

== ENCOUNTER 2024-09-03 10:20 | Inpatient (IN) | payer MEDICARE, MEDICAID, SELFPAY ==
--- OUTSIDE RECORDS SUMMARY | 2024-08-06 06:55 | XMS_ITS | Clinical Summary ---
Author Organization [facility] Address [address] [place] [address] Phone Care Team Providers Care Evaluator Transfer Students Name Role Phone Mike Case MD Primary Care Provider [phone] Allergies No known active allergies Medications acetaminophen (TYLENOL 8 HOUR ORAL) Take 500 Tablets by mouth 3 times daily. Active methylPREDNISo lone (MEDROL DOSPAK) 4 mg tablet Take 1 tablet (4 mg total) by mouth See administration instructions for 6 days. Use as directed by package instructions 21 tablet 07/03/19 25 025 clotrimazole (LOTRIMIN) 1 % cream Apply topically 2 (two) times a day. 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); Post-operative state; Diabetic mononeuropathy simplex (CMS/[facility] V24, [facility] V28); Dermatophytosis of nail from Last 3 [...] AM EDT Office Visit Orthopedic Surgery - [place] [address] [phone] Riaz Tuttle, DPM [address] [address] Health Maintenance Due Date Last Done Comments [...] Last 3 Months Insurance MEDICAID - [place] [facility] [place] [id number] Advance Directives Documents on File Type Date Recorded Patient Med Spa Manager Expl anation Health Care Decision (hx) 08/13/2023 AD JUAN MIGUEL DIRECTIVE Care Teams Evaluator Transfer Students Relationship Specialty Start Date End Date Mike Case MD [facility] [place] [address] [place] [address] [address] [facility] [place] [address] PCP - General 03/19/23
--- OUTSIDE RECORDS SUMMARY | 2024-08-06 06:55 | XMS_ITS | Clinical Summary ---
Author Organization [facility] Address [address] [place] [address] Care Team Providers Care Dinkey Operator Name Role Phone Unavailable Primary Care Provider [...] of Treatment Not on file [place] [address] [address]
[2024-09-01 13:59] VITALS: BMI 37.4
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
[2024-09-03] VITALS (17 sets, daily range): BP systolic 107–153; BP diastolic 79–99; PULSE 73–98; RESP 10–20; TEMP 36.1–36.6; O2SAT 92–99; BMI 38.6; BMI 39.9
--- NOTE | ~2024-09-03 | NM_ITS ---
EXAMINATION: Nuclear medicine sentinel node with imaging. CLINICAL INDICATION: Left breast cancer. TECHNIQUE: 4% and lidocaine jelly cream around the left breast areola was cleaned and draped in aseptic manner. 0.5 mCi of 90 9M technetium lymphoscintigraphy divided in 4 equal doses was injected in 4 quadrants around the left breast Imaging obtained 30 minutes later. Patient tolerated procedure well. FINDINGS: There is normal isotope activity seen in 4 quadrants. There are at least 2 small central lymph nodes seen in the left anterior axilla. No supraclavicular lymph nodes seen NM/NM sentinel node w imaging IMPRESSION: Successful left breast lymphoscintigraphy with 2 sentinel nodes in the anterior axilla Electronically signed by: Keegan Rodriguez MD 09/03/2024 10:32 AM EDT
[2024-09-03] MEDS: Lidocaine 4 % Cream KIT 1 APPL TOPICAL (07:50)
[2024-09-03 09:36] LABS: Glucose, Whole Blood 223 mg/dL (60-115)
[2024-09-03] MEDS: Lactated Ringers 1,000 ML 100 ML IVCONT ×2 (09:49→19:56)
--- NOTE | 2024-09-03 10:36 | PHA.MEDREC ---
Pharmacy Consult ? Medication Reconciliation Pharmacy has completed the medication reconciliation. Reviewed med rec done by nursing, matches recent pharmacy claim history.
--- NOTE | 2024-09-03 10:38 | P.HPSUR_ITS ---
Pre-Procedural Eval Section A - 24 Hr Update-Section A only Date of Service: 09/03/24 Section B - Complete if H&P > 30 days Chief Complaint: Left Breast Cancer Details of Present Illness: Breast cancer, left, and wants to do mastectomy for both breasts; sentinel node biopsy for the left breast scheduled Relevant Family History (Specify if Yes): Yes Present Medications: see Short Stay Collaborative assessment (Diabetes, hypert ension, obesity) Medical History: Significant History (Diabetes, hypertension, obesity) Allergies: Allergies Allergy/AdvReac Type Severity Reaction Status Date / Time bandaid Allergy Intermediate blisters Verified 09/03/24 07:24 Review of Systems Sugical H&P ROS: Negative: Constitution, Cardiovascular and Respiratory Exam Surgical H&P Exam: Normal: Heart, Normal: Lungs and Normal: Abdomen Plan Diagnosis/Plan: Unchanged I have reviewed the history and physical and performed a pertinent physical examination on my patient. No changes have occurred unless specified. Time Spent With Patient Time: Total time managing care of this patient today ____ minutes.
[2024-09-03] MEDS: ceFAZolin Sodium/Dextrose,Iso 2 GM/50 ML PIGGYBACK IV (10:45)
--- NOTE | 2024-09-03 13:50 | P.OP_ITS ---
Operative Note Operative Note Date of Service: 09/03/24 Narrative: Preop diagnosis: Left breast cancer, with invasive ductal and lobular features Postop diagnosis: The same Procedure: Bilateral mastectomy with sentinel biopsy on the left Surgeon: Thomas Conner MD medical records assistant: VANESSA Andrew The patient is a 64 year old female who has not need diagnosed his cancer on the left with invasive ductal and lobular features. She wanted to proceed with mastectomy instead of breast conservation treatment. She also insisted on being mastectomy on the contralateral breast, stating multiple times that she did not ?need to her breast? and that she wanted asymmetry. She did not want any reconstructive surgery She understood the technique of the planned procedure as well as the risks, benefits, and alternatives. ERAS protocol ordered preop. She was brought to the operating room. She was placed supine under general anesthesia via laryngeal mask airway. She underwent a bilateral pectoralis block with the anesthesiologist Both breasts were prepped and draped in the usual sterile fashion. A surgical time-out was done. The patient received cefazolin 2 g IV preoperatively I made an elliptical incision on the skin of the left breast around the nipple-areolar complex in a standard mastectomy incision. This was carried down through the full-thickness of the skin and subcutaneous fat with electrocautery.The subcutaneous layer was lifted with Amanda clamps and we developed this plane of dissection We then proceeded to develop the superior flap using electrocautery, carefully maintaining thickness as we proceeded along a well-defined plane of dissection of about 5 mm of subcutaneous fat all the way to the subclavicular line. I proceeded to define the pectoralis fascia and incised this at this level all the way to the sternal area medially. We d eveloped this plane of dissection with electrocautery by lifting the pectoralis fascia off of the pectoralis muscle. We controlled oozers bleeders as we proceeded with electrocautery and with ligatures using Polysorb 3-0. I the pectoralis fascia from the muscle layer the way to the lateral edge of the pectoralis. I then proceeded to develop our inferior flap in the same manner as above. The subcutaneous layer wwa lifted with Amanda clamps and we developed this plane of dissection, lifting the subcutaneous layer from the breast tissue all the way to the inframammary crease. I then proceeded to continue to define plane of dissection between the pectoralis muscle and the pectoralis fascia from medial to lateral all the way to the lateral edge of the pectoralis muscle. We com pleted the mastectomy by dividing the remaining attachments of the entire breast tissue towards the axilla. We marked the lateral aspect with a stitch for orientation We proceeded to then do the sentinel node biopsy. I opened up the of the pectoral fascia entered the axillary fat pad. I used the gamma probe to identify lymph nodes. We were able to identify 3 sentinel nodes Croswell node 1 had a count of 194. Croswell node 2 had a count of 271. Croswell node 3 had a count of 109. These sentinel nodes were gently dissected and a right angle clamp was applied across the pedicle to excise this lymph nodes. Tied the pedicle with Polysorb 3-0 ties We observed for hemostasis. Once hemostasis was confirmed, we applied a moist lap into the mastectomy site and the axilla We then proceeded to do the mastectomy in the right side in the same fashion as above. I made an elliptical incision on the skin of the left breast around the nipple- areolar complex in a standard mastectomy incision. This was carried down through the full-thickness of the skin and subcutaneous fat with electrocautery.The subcutaneous layer was lifted with Amanda clamps and we dev eloped this plane of dissection We then proceeded to develop the superior flap using electrocautery, carefully maintaining thickness as we proceeded along a well-defined plane of dissection of about 5 mm of subcutaneous fat all the way to the subclavicular line. I proceeded to define the pectoralis fascia and incised this at this level all the way to the sternal area medially. We developed this plane of dissection with electrocautery by lifting the pectoralis fascia off of the pectoralis muscle. We controlled oozers bleeders as we proceeded with electrocautery and with ligatures using Polysorb 3-0. I the pectoralis fascia from the muscle layer the way to the lateral edge of the pectoralis. I then proceeded to develop our inferior flap in the same manner as above. The subcutaneous layer wwa lifted with Amanda clamps and we developed this plane of dissection, lifting the subcutaneous layer from the breast tissue all the way to the inframammary crease. I then proceeded to continue to define plane of dissection between the pectoralis muscle and the pectoralis fascia from medial to lateral all the way to the lateral edge of the pectoralis muscle. We completed the mastectomy by dividing the remaining attachments of the entire breast tissue towards the axilla. We then proceeded to ensure hemostasis on both the left and right mastectomy sites. Once hemostasis was confirmed, we irrigated I positioned 1 ALIYA drain on the right mastectomy site, running an exit site laterally all the way to the inferior flap and medially. I positioned to ALIYA drains on the left mastectomy site, 1 running inferiorly to the inferior flap and 1 running superiorly. I secured all of these drains with nylon 3-0 sutures the skin The subcutaneous and subdermal layers were apposed with Polysorb 3-0 simple interrupted sutures. Skin closure was achieved on both incisions with running subcuticular 4-0 sutures Dressings were applied. The procedure was completed The patient tolerated the procedure well. There were no immediate complications. Initial final counts of sponges and instruments were correct. Estimated blood loss was about 100 cc The patient was extubated without difficulty and transferred to the recovery room with stable vital signs. Breast Croswell Node Biopsy Substrate(s) used for sentinel node biopsy in the non-neoadjuvant setting: Radiotracer Substrate(s) used for sentinel node biopsy in the neoadjuvant setting: N/A All colored nodes or non-colored nodes present at the end of a dye filled lymphatic channel were removed, if dye was used as the substrate for localization: N/A All significantly radioactive nodes were removed, if radionuclide was used as the substrate for localization: Yes All palpably suspicious nodes were removed, if present: N/A If clips were placed in pathology-involved nodes, those nodes were identified and removed: N/A Procedure performed with curative intent?: Yes General Surg. - Synoptic Notes Breast Croswell Node Biopsy Substrate(s) used for sentinel node biopsy in the non-neoadjuvant setting: Radiotracer Substrate(s) used for sentinel node biopsy in the neoadjuvant setting: N/A All colored nodes or non-colored nodes present at the end of a dye filled lymphatic channel were removed, if dye was used as the substrate for localization: N/A All significantly radioactive nodes were removed, if radionuclide was used as the substrate for localization: Yes All palpably suspicious nodes were removed, if present: N/A If clips were placed in pathology-involved nodes, those nodes were identified and removed: N/A Procedure performed with curative intent?: Yes
[2024-09-03] MEDS: HYDROmorphone HCl 0.5 MG/0.5 ML SYRINGE IVPUSH ×2 (14:04→17:30)
[2024-09-03] MEDS: Midazolam HCl 2 MG/2 ML VIAL IVPUSH (14:04)
--- NOTE | 2024-09-03 16:13 | P.EN_ITS ---
Event Note Date of Service: 09/04/24 Event Note: Seen postop Status post bilateral mastectomy, sentinel biopsy on the left Complains of pain issues Dressings dry All ALIYA drain scanty serosanguineous Stable vital sign Pain management I have updated her son [phone] She has waiting for a room in [facility] surge Time Spent With Patient Time: Total time managing care of this patient today ____ minutes.
--- NOTE | 2024-09-03 16:13 | PM.EVENT ---
Event Note Date of Service: 09/04/24 Event Note: Seen postop Status post bilateral mastectomy, sentinel biopsy on the left Complains of pain issues Dressings dry All ALIYA drain scanty serosanguineous Stable vital sign Pain management I have updated her son [phone] She has waiting for a room in [facility] surge Time Spent With Patient Time: Total time managing care of this patient today ____ minutes.
[2024-09-03] MEDS: Acetaminophen 1,000 MG/100 ML PIGGYBACK 400 MG IV (19:57)
[2024-09-03] MEDS: Docusate Sodium 100 MG CAPSULE PO (20:02)
[2024-09-03] MEDS: 0.9 % Sodium Chloride Flush 3 ML SYRINGE IVFLUSH (20:02)
[2024-09-03 20:24] LABS: Glucose, Whole Blood 487 mg/dL (60-115)
[2024-09-03] MEDS: Insulin Lispro 100 UNIT/ML 3 ML VIAL SUBCUT (20:49)
--- NOTE | 2024-09-03 20:52 | MHC.PIE ---
Addendum entered by Casper Mercedes RN 09/03/24 22:34: p; repeat poc now 413 i; notified - recheck poc in 2hrs e; will cont to monitor Original Note: p; poc 487, admelog 10u given per s/s i; dr lamas notified. e; will cont to monitor
[2024-09-03 22:20] LABS: Glucose, Whole Blood 413 mg/dL (60-115)
--- NOTE | 2024-09-04 00:20 | PM.EVENT ---
Event Note Date of Service: 09/04/24 Event Note: hospitalist consult placed for medical management after bilateral mastectomy with sentinel lymph node biopsy yesterday for invasive ductal carcinoma grade 3. Patient is resting in bed comfortably and sleeping, we will defer consult to later in the morning. Medical history reviewed from recent PCP note with type 2 diabetes on metformin, Januvia and Jardiance with recent A1c of 7.2. Hyperlipidemia on statin. HTN on lisinopril -hydrochlorothiazide. Class 3 obesity. Moderate persistent asthma on multiple inhalers and cetirizine. In the interim recommendations as following: s/p bilateral mastectomy and left sentinel lymph node biopsy secondary to invasive ductal carcinoma grade 3 - plan per surgery type 2 diabetes - sliding scale insulin - diabetic diet - resume metformin, Januvia and Jardiance after discharge hyperlipidemia - continue statin hypertension - continue lisinopril-hydrochlorothiazide moderate persistent asthma, no acute exacerbation - continue cetirizine and home inhalers class 3 obesity - BMI 39.9 - weight loss encouraged Time Spent With Patient Time: Total time managing care of this patient today ____ minutes.
[2024-09-04 00:33] LABS: Glucose, Whole Blood 315 mg/dL (60-115)
[2024-09-04] MEDS: Lactated Ringers 1,000 ML 100 ML IVCONT ×3 (03:02→20:42)
[2024-09-04] MEDS: Acetaminophen 1,000 MG/100 ML PIGGYBACK 400 MG IV ×4 (03:03→20:43)
[2024-09-04] MEDS: Morphine Sulfate 4 MG/ML CARTRIDGE IVPUSH ×2 (03:07→07:59)
[2024-09-04 03:11] VITALS: BP 142/70; PULSE 88; RESP 16; TEMP 36.2; O2SAT 95
[2024-09-04 06:09] LABS: MANUAL DIFF FLAG NO
[2024-09-04] MEDS: Omeprazole 20 MG CAPSULE.DR PO (06:13)
[2024-09-04 06:22] LABS: Basophils Percent Auto 0.2 % (0-2); Eosinophils Percent Auto 0.1 % (0-4); Imm Gran Abs Auto 0.07 X10*3/uL (0.00-0.03); Imm Gran Pct Auto 0.7 % (0.0-0.4); Lymphocytes Percent Auto 10.3 % (20-40); Mean Corpuscular HGB Conc 33.3 g/dl (31.0-35.0); Mean Corpuscular Hemoglobin 25.7 pg (27.0-33.0); Mean Corpuscular Volume 77.1 fL (80.0-98.0); Mean Platelet Volume 9.7 fL (9.4-12.3); Monocytes Absolute Auto 0.8 X10*3/uL (0.1-1.2); Monocytes Percent Auto 7.7 % (2-11); Neutrophils Absolute Auto 8.2 x10*3/uL (2.0-8.3); Platelet Count 237 X10*3/uL (160-400); Red Blood Count 4.28 X10*6/uL (4.20-5.50); Red Cell Distribution Width 14.2 % (11.0-16.0); White Blood Count 10.1 X10*3/uL (4.8-10.8)
[2024-09-04 07:27] LABS: Glucose, Whole Blood 275 mg/dL (60-115)
[2024-09-04 07:45] VITALS: BP 134/67; PULSE 79; RESP 18; TEMP 36.3; O2SAT 94
--- NOTE | 2024-09-04 07:53 | PM.PNGS ---
Subjective Subjective Date of Service: 09/05/24 Interval history: Admits to pain, appropriate to postop No events reported overnight Physical Exam Vital Signs: Vital Signs: Last Vital Signs Temp 97.3 F 09/04/24 07:45 Pulse 79 09/04/24 07:45 Resp 18 09/04/24 07:45 BP 134/67 09/04/24 07:45 Pulse Ox 94 09/04/24 07:45 O2 Del Method Room Air 09/04/24 07:45 O2 Flow Rate 2 09/03/24 18:04 BMI result Body Mass Index 39.9 Const: General: comfortable and no acute distress Chest: Other: Both mastectomy site flat without any obvious hematoma or induration or ecchymosis, ALIYA drains dark, old blood, small in quantity Resp: Effort & Inspection: normal respiratory effort Cardio: Rate: regular rate Objective Data Active Medications Albuterol Sulfate (Albuterol Sulfate 90 Mcg 8 Gm Inhaler) 1 puff INHALE QID PRN PRN Reason: shortness of breath or wheezing Atorvastatin Calcium (Atorvastatin Calcium 80 Mg Tablet) 80 mg PO DAILY [facility]CLUDES [facility] Calcium Carbonate (Calcium Carbonate 750 Mg Tab.Chew) 750 mg PO Q4H PRN PRN Reason: Heartburn Dextrose (Dextrose 50 % 25 Gm/50 Ml Syringe) 25 gm IVPUSH Q15M PRN; Protocol PRN Reason: per Hypoglycemia Standing Ord. Docusate Sodium (Docusate Sodium 100 Mg Capsule) 100 mg PO BID COUNT INCLUDES [facility] Last Admin: 09/03/24 20:02 Dose: 100 mg Documented By: CAMILLE Fluticasone Propionate (Fluticasone Propionate Nasal 16 Gm [place]) 1 spray NOSTRIL-B BID COUNT INCLUDES [facility] Last Admin: 09/03/24 20:54 Dose: Not Given Documented By: CAMILLE Non-Admin Reason: Med Not Available Fluticasone/Vilanterol (Fluticasone/Vilanterol 200/25 Blst.W.Dev) 1 puff INHALE RDAILY COUNT INCLUDES [facility] Glucose (Glucose Gel 15 Gm Gel..Gram.) 15 gm PO Q15M PRN; Protocol PRN Reason: per Hypoglycemia Standing Ord. Hydrochlorothiazide (Hydrochlorothiazide 12.5 Mg Tablet) 12.5 mg PO DAILY COUNT [facility]CLUDES [facility] Lactated Ringer's (Lr) 1,000 mls @ 100 mls/hr IVCONT .Q10H COUNT INCLUDES [facility] Last Admin: 09/04/24 03:02 Dose: 100 mls/hr Documented By: CAMILLE Acetaminophen (Ofirmev) 1,000 mg in 100 mls @ 400 mls/hr IV Q6H COUNT INCLUDES [facility] Last Infusion: 09/04/24 03:24 Dose: Infused Documented By: CAMILLE Insulin Human Lispro (Insulin Lispro 100 Unit/Ml 3 Ml Vial) 0 unit SUBCUT QIDACHS COUNT INCLUDES [facility]; Protocol Last Admin: 09/03/24 20:55 Dose: Not Given Documented By: CAMILLE Non-Admin Reason: Previously Administered Lisinopril (Lisinopril 20 Mg Tablet) 20 mg PO DAILY COUNT INCLUDES [facility] Loratadine (Loratadine 10 Mg Tablet) 10 mg PO DAILY COUNT INCLUDES [facility] Magnesium Hydroxide (Milk Of Magnesia 30 Ml Oral.Susp) 30 ml PO DAILY PRN PRN Reason: Constipation Melatonin (Melatonin 3 Mg Tablet) 6 mg PO BEDTIME PRN PRN Reason: Insomnia Morphine Sulfate (Morphine Sulfate 4 Mg/Ml Cartridge) 4 mg IVPUSH Q4H PRN; Protocol PRN Reason: Pain, Severe (Pain Scale 7-10) Last Admin: 09/04/24 03:07 Dose: 4 mg Documented By: CAMILLE Omeprazole (Omeprazole 20 Mg Capsule.Dr) 20 mg PO DAILY@0630 [facility]CLUDES [facility] Last Admin: 09/04/24 06:13 Dose: 20 mg Documented By: CAMILLE Ondansetron HCl (Ondansetron Hcl 4 Mg/2 Ml Vial) 4 mg IVPUSH Q6H PRN PRN Reason: Nausea and Vomiting Oxycodone HCl (Oxycodone Hcl Immed Release 5 Mg Tablet) 5 mg PO Q4H PRN PRN Reason: Pain, Moderate(Pain Scale 4-6) Polyethylene Glycol (Polyethylene Glycol 3350 17 Gm Powd.Pack) 17 gm PO DAILY PRN PRN Reason: constipation Sodium Chloride (0.9 % Sodium Chloride Flush 3 Ml Syringe) 3 ml IVFLUSH QSHIFT COUNT INCLUDES [facility] Last Admin: 09/03/24 20:55 Dose: Not Given Documented By: CAMILLE Non-Admin Reason: IV Running Labs 09/04/24 06:08 09/05/24 08:25 Labs: Laboratory Results - last 24 hr 09/03/24 09/03/24 09/03/24 07:24 09:32 20:19 MCV MCH MCHC RDW Plt Count MPV Immature Gran % (Auto) Neut % (Auto) Lymph % (Auto) [place] % (Auto) Eos % (Auto) Baso % (Auto) Lymph # (Auto) [place] # (Auto) Eos # (Auto) Baso # (Auto) Abs Immat Gran (auto) Absolute Neuts (auto) Absolute Nucleated RBC Nucleated RBC % (auto) POC Glucose 223 H 487 H* Blood Type AB Positive Antibody Screen NEGATIVE 09/03/24 09/04/24 09/04/24 22:14 00:28 06:08 MCV 77.1 L MCH 25.7 L MCHC 33.3 RDW 14.2 Plt Count 237 MPV 9.7 Immature Gran % (Auto) 0.7 H Neut % (Auto) 81.0 H Lymph % (Auto) 10.3 L [place] % (Auto) 7.7 Eos % (Auto) 0.1 Baso % (Auto) 0.2 Lymph # (Auto) 1.0 L [place] # (Auto) 0.8 Eos # (Auto) 0.0 Baso # (Auto) 0.0 Abs Immat Gran (auto) 0.07 H Absolute Neuts (auto) 8.2 Absolute Nucleated RBC 0.000 Nucleated RBC % (auto) 0.0 POC Glucose 413 H* 315 H Blood Type Antibody Screen 09/04/24 07:23 MCV MCH MCHC RDW Plt Count MPV Immature Gran % (Auto) Neut % (Auto) Lymph % (Auto) [place] % (Auto) Eos % (Auto) Baso % (Auto) Lymph # (Auto) [place] # (Auto) Eos # (Auto) Baso # (Auto) Abs Immat Gran (auto) Absolute Neuts (auto) Absolute Nucleated RBC Nucleated RBC % (auto) POC Glucose 275 H Blood Type Antibody Screen Procedures Date of Service Date of Service: 09/05/24 Progress Note: A&P Assessment and plan (1) Breast cancer, left: Status: Acute Assessment and Plan: Status post bilateral mastectomy, with sentinel biopsy in the left Seems to have good pain control Mastectomy sites flat with no obvious hematoma Drains in place with dark old blood Pain control Drain care Possible home tomorrow with visiting Doing well clinically Time Spent With Patient Time: Total time managing care of this patient today ____ minutes. Quality Stroke Does the patient have a stroke diagnosis?: No VTE Prior VTE?: No VTE Risk Level:: Medical - moderate - high VTE Device Contraindication: N/A - Device Ordered VTE Drug Contraindication: N/A - Med Ordered
[2024-09-04] MEDS: Loratadine 10 MG TABLET PO (07:55)
[2024-09-04] MEDS: Docusate Sodium 100 MG CAPSULE PO ×2 (07:55→20:47)
[2024-09-04] MEDS: hydroCHLOROthiazide 12.5 MG TABLET PO (07:55)
[2024-09-04] MEDS: Insulin Lispro 100 UNIT/ML 3 ML VIAL SUBCUT ×4 (07:56→20:47)
[2024-09-04] MEDS: lisinopriL 20 MG TABLET PO (07:56)
--- NOTE | 2024-09-04 07:58 | HO.POSTANES ---
Post Anesthesia Evaluation Post Anesthesia Evaluation Date of Service: 09/04/24 Vital Signs: Vital Signs Temp Pulse Resp BP Pulse Ox O2 Del Method 09/04/24 07:45 97.3 F 79 18 134/67 94 Room Air 09/04/24 03:11 97.2 F 88 16 142/70 H 95 Room Air Anesthesia: Regional and General Mental Status: Awake Pain Control: Satisfactory Nausea/Vomiting: None Hydration: Adequate Anesthesia-Related Issues: No Anes. Related Issues
[2024-09-04] MEDS: Fluticasone/Vilanterol 200/25 BLST.W.DEV 1 PUFF INHALE (07:59)
[2024-09-04] MEDS: Fluticasone Propionate Nasal 16 GM SPRAY 1 SPRAY NOSTRIL-B ×2 (08:03→20:47)
[2024-09-04] MEDS: 0.9 % Sodium Chloride Flush 3 ML SYRINGE IVFLUSH ×2 (08:09→15:34)
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
[2024-09-04 11:06] LABS: Glucose, Whole Blood 273 mg/dL (60-115)
[2024-09-04] MEDS: Empagliflozin 25 MG TABLET PO (11:51)
[2024-09-04] MEDS: oxyCODONE HCl Immed Release 5 MG TABLET PO ×2 (12:25→20:46)
[2024-09-04 15:47] VITALS: BP 107/54; PULSE 82; RESP 18; TEMP 36.2; O2SAT 93
[2024-09-04 16:06] LABS: Glucose, Whole Blood 249 mg/dL (60-115)
--- NOTE | 2024-09-04 16:12 | MHC.CM.PN ---
PT REPORTS HER SON STAYS WITH HER BUT WORKS 45 HOURS PER WEEK, SO WILL NOT ASSIST AT DC SHE REPORTS BEING INDEPENDENT AT BASELINE AND USING NO DME SHE REPORTS SHE DOES NOT FEEL SHE CAN MANAGE HER NEEDS AT DC BECAUSE EMPTYING HER DRAINS WOULD MAKE HER ILL CM INFORMED HER SHE MAY BE ABLE TO HAVE A VNA COMING EVERY OTHER DAY, HOWEVER SHE STATES LAST TIME SHE WAS SUPPOSED TO GET ONE THEY NEVER CAME SHE REPORTS SHE FEELS SHE WILL COME RIGHT BACK IF SHE IS NOT HERE FOR AT LEAST A COUPLE DAYS AND IDENTIFIES HER PAIN MANAGEMENT A CONCERN VNA REFERRAL MADE PT STATES SHE DOES NOT NEED STR HCP AND MOLST ON FILE PCP: LUDIN MENDOSA DCP: HOME WITH VNA SON TO TRANSPORT
[2024-09-04 19:45] VITALS: BP 117/57; PULSE 79; RESP 18; TEMP 36.4; O2SAT 93
[2024-09-04 20:28] LABS: Glucose, Whole Blood 177 mg/dL (60-115)
[2024-09-04] MEDS: Atorvastatin Calcium 80 MG TABLET PO (20:47)
[2024-09-04] MEDS: metFORMIN HCl 1,000 MG TABLET 1000 MG PO (20:47)
[2024-09-05] VITALS (7 sets, daily range): BP systolic 112–144; BP diastolic 55–74; PULSE 70–81; RESP 16–19; TEMP 36–36.1; O2SAT 94–98
[2024-09-05] MEDS: Acetaminophen 1,000 MG/100 ML PIGGYBACK 400 MG IV ×4 (03:17→22:18)
[2024-09-05] MEDS: oxyCODONE HCl Immed Release 5 MG TABLET PO ×3 (03:19→22:13)
[2024-09-05] MEDS: Lactated Ringers 1,000 ML 100 ML IVCONT (06:07)
[2024-09-05] MEDS: Omeprazole 20 MG CAPSULE.DR PO (06:07)
[2024-09-05 07:39] LABS: Glucose, Whole Blood 167 mg/dL (60-115)
[2024-09-05] MEDS: Insulin Lispro 100 UNIT/ML 3 ML VIAL SUBCUT ×3 (07:56→16:32)
[2024-09-05] MEDS: Fluticasone/Vilanterol 200/25 BLST.W.DEV 1 PUFF INHALE (08:02)
--- NOTE | 2024-09-05 08:14 | P.PNGS_ITS ---
Subjective Subjective Date of Service: 09/05/24 <Carolina Andrew PA-C - Last Filed: 09/05/24 08:18> 09/05/24 <Thomas Conner MD - Last Filed: 09/05/24 14:22> Interval history: C/o heaviness in arms and limited use due to pain. C/o pain at mastectomy incisions. Reports she is limited in sitting and ambulating due to her healing foot from surgery. <Carolina Andrew PA-C - Last Filed: 09/05/24 08:18> Physical Exam 2 Vital Signs: Vital Signs: Last Vital Signs Temp 96.8 F 09/05/24 07:48 Pulse 76 09/05/24 08:06 Resp 16 09/05/24 08:06 BP 122/63 09/05/24 07:48 Pulse Ox 94 09/05/24 07:48 O2 Del Method Room Air 09/05/24 07:48 O2 Flow Rate 2 09/03/24 18:04 BMI result Body Mass Index 39.9 <SAUNDRA Medina Last Filed: 09/05/24 08:18> Const: General: comfortable, no acute distress and alert <SAUNDRA Medina Last Filed: 09/05/24 08:18> Orientation/consciousness: patient oriented x3 <SAUNDRA Medina Last Filed: 09/05/24 08:18> Chest: Other: some fullness of medial aspect of b/l incisions, mild ecchymosis throughout, no erythema, flaps viable bilaterally, ALIYA drain scanty serosanguineous on both sides <Carolina Andrew PA-C - Last Filed: 09/05/24 08:18> Resp: Effort & Inspection: normal respiratory effort <SAUNDRA Medina Last Filed: 09/05/24 08:18> Skin: General skin exam: no rashes or lesions noted <SAUNDRA Medina Last Filed: 09/05/24 08:18> Neuro: General: patient oriented x3 and moves all extremities <SAUNDRA Medina Last Filed: 09/05/24 08:18> Objective Data Active Medications Albuterol Sulfate (Albuterol Sulfate 90 Mcg 8 Gm Inhaler) 1 puff INHALE QID PRN PRN Reason: shortness of breath or wheezing Atorvastatin Calcium (Atorvastatin Calcium 80 Mg Tablet) 80 mg PO BEDTIME [facility] Last Admin: 09/04/24 20:47 Dose: 80 mg Documented By: CAMILLE Calcium Carbonate (Calcium Carbonate 750 Mg Tab.Chew) 750 mg PO Q4H PRN PRN Reason: Heartburn Dextrose (Dextrose 50 % 25 Gm/50 Ml Syringe) 25 gm IVPUSH Q15M PRN; Protocol PRN Reason: per Hypoglycemia Standing Ord. Docusate Sodium (Docusate Sodium 100 Mg Capsule) 100 mg PO BID [facility] Last Admin: 09/04/24 20:47 Dose: 100 mg Documented By: CAMILLE Empagliflozin (Empagliflozin 25 Mg Tablet) 25 mg PO DAILY [facility] Last Admin: 09/04/24 11:51 Dose: 25 mg Documented By: VY Fluticasone Propionate (Fluticasone Propionate Nasal 16 Gm [place]) 1 spray NOSTRIL-B BID [facility] Last Admin: 09/04/24 20:47 Dose: 1 spray Documented By: CAMILLE Fluticasone/Vilanterol (Fluticasone/Vilanterol 200/25 Blst.W.Dev) 1 puff INHALE RDAILY [facility] Last Admin: 09/05/24 08:02 Dose: 1 puff Documented By: MYNOR Glucose (Glucose Gel 15 Gm Gel..Gram.) 15 gm PO Q15M PRN; Protocol PRN Reason: per Hypoglycemia Standing Ord. Hydrochlorothiazide (Hydrochlorothiazide 12.5 Mg Tablet) 12.5 mg PO DAILY [facility] Last Admin: 09/04/24 07:55 Dose: 12.5 mg Documented By: VY Acetaminophen (Ofirmev) 1,000 mg in 100 mls @ 400 mls/hr IV Q6H [facility] Last Infusion: 09/05/24 03:40 Dose: Infused Documented By: CAMILLE Insulin Human Lispro (Insulin Lispro 100 Unit/Ml 3 Ml Vial) 0 unit SUBCUT QIDACHS [facility]; Protocol Last Admin: 09/05/24 07:56 Dose: 2 unit Documented By: JULI Lisinopril (Lisinopril 20 Mg Tablet) 20 mg PO DAILY [facility] Last Admin: 09/04/24 07:56 Dose: 20 mg Documented By: VY Loratadine (Loratadine 10 Mg Tablet) 10 mg PO DAILY [facility] Last Admin: 09/04/24 07:55 Dose: 10 mg Documented By: VY Magnesium Hydroxide (Milk Of Magnesia 30 Ml Oral.Susp) 30 ml PO DAILY PRN PRN Reason: Constipation Melatonin (Melatonin 3 Mg Tablet) 6 mg PO BEDTIME PRN PRN Reason: Insomnia Metformin HCl (Metformin Hcl 1,000 Mg Tablet) 1,000 mg PO BID [facility] Last Admin: 09/04/24 20:47 Dose: 1,000 mg Documented By: CAMILLE Morphine Sulfate (Morphine Sulfate 4 Mg/Ml Cartridge) 4 mg IVPUSH Q4H PRN; Protocol PRN Reason: Pain, Severe (Pain Scale 7-10) Last Admin: 09/04/24 07:59 Dose: 4 mg Documented By: VY Omeprazole (Omeprazole 20 Mg Capsule.Dr) 20 mg PO DAILY@0630 [facility] Last Admin: 09/05/24 06:07 Dose: 20 mg Documented By: CAMILLE Ondansetron HCl (Ondansetron Hcl 4 Mg/2 Ml Vial) 4 mg IVPUSH Q6H PRN PRN Reason: Nausea and Vomiting Oxycodone HCl (Oxycodone Hcl Immed Release 5 Mg Tablet) 5 mg PO Q4H PRN PRN Reason: Pain, Moderate(Pain Scale 4-6) Last Admin: 09/05/24 07:58 Dose: 5 mg Documented By: JULI Polyethylene Glycol (Polyethylene Glycol 3350 17 Gm Powd.Pack) 17 gm PO DAILY PRN PRN Reason: constipation Sitagliptin Phosphate (Sitagliptin Phosphate 100 Mg Tablet) 100 mg PO DAILY [facility] Sodium Chloride (0.9 % Sodium Chloride Flush 3 Ml Syringe) 3 ml IVFLUSH QSHIFT [facility] Last Admin: 09/05/24 08:00 Dose: Not Given Documented By: JULI Non-Admin Reason: IV Running <Carolina Andrew PA-C - Last Filed: 09/05/24 08:18> Labs CBC & Chem 7: 09/04/24 06:08 09/05/24 08:25 <Carolina Andrew PA-C - Last Filed: 09/05/24 08:18> Labs: Laboratory Results - last 24 hr 09/04/24 09/04/24 09/04/24 11:02 15:58 20:25 POC Glucose 273 H 249 H 177 H 09/05/24 07:24 POC Glucose 167 H <Carolina Andrew PA-C - Last Filed: 09/05/24 08:18> Procedures Date of Service Date of Service: 09/05/24 <Carolina Andrew PA-C - Last Filed: 09/05/24 08:18> 09/05/24 <Thomas Conner MD - Last Filed: 09/05/24 14:22> Progress Note: A&P Assessment and plan (1) S/P bilateral mastectomy: Status: Acute <Carolina Andrew PA-C - Last Filed: 09/05/24 08:18> (2) Invasive ductal carcinoma of breast, stage 3: Status: Acute <Carolina Andrew PA-C - Last Filed: 09/05/24 08:18> Assessment and Plan: Describes pain, appropriate to incisions No events reported All incisions dry, flaps viable with no hematoma, no ischemia ALIYA drain serosanguineous, scanty Dressings changed Okay to DC home once with adequate pain control - she says she wants to stay until tomorrow, states that she has limited to help at home Plan to keep LAIYA drain and we will see the patient in the office next week Seen and examined independently <Thomas Conner MD - Last Filed: 09/05/24 14:22> Assessment and Plan: POD #2 s/p bilateral mastectomy with sentinel biopsy on the left. Continues to do fairly well post op. VSS. Incisions clean appearing with mild fullness medially b/l, flaps viable, drain output low, serosanguineous. Will remain inpatient for another day for pain control. Encouraged OOB/ambulation as tolerated and increasing activity. Will discuss with case management regarding VNA services for drain care for home in anticipation of discharge over this weekend. Patient comfortable with plan. <Carolina Andrew PA-C - Last Filed: 09/05/24 08:18> Time Spent With Patient Time: Total time managing care of this patient today ____ minutes. <Carolina Andrew PA-C - Last Filed: 09/05/24 08:18> Quality Stroke Does the patient have a stroke diagnosis?: No <Carolina Andrew PA-C - Last Filed: 09/05/24 08:18> VTE Prior VTE?: No <Carolina Andrew PA-C - Last Filed: 09/05/24 08:18> VTE Risk Level:: Medical - moderate - high <Carolina Andrew PA-C - Last Filed: 09/05/24 08:18> VTE Device Contraindication: N/A - Device Ordered <Carolina Andrew PA-C - Last Filed: 09/05/24 08:18> VTE Drug Contraindication: N/A - Med Ordered <Carolina Andrew PA-C - Last Filed: 09/05/24 08:18>
[2024-09-05] MEDS: Docusate Sodium 100 MG CAPSULE PO ×2 (09:13→22:14)
[2024-09-05] MEDS: metFORMIN HCl 1,000 MG TABLET 1000 MG PO ×2 (09:13→22:13)
[2024-09-05] MEDS: hydroCHLOROthiazide 12.5 MG TABLET PO (09:13)
[2024-09-05] MEDS: Loratadine 10 MG TABLET PO (09:14)
[2024-09-05] MEDS: SITagliptin Phosphate 100 MG TABLET PO (09:14)
[2024-09-05] MEDS: Empagliflozin 25 MG TABLET PO (09:14)
[2024-09-05] MEDS: lisinopriL 20 MG TABLET PO (09:14)
[2024-09-05] MEDS: Fluticasone Propionate Nasal 16 GM SPRAY 1 SPRAY NOSTRIL-B (09:15)
[2024-09-05 10:13] LABS: Creatinine Clr Calc Pharmacy 92.8; Estimated Glomerular Filt Rate > 60
[2024-09-05 11:09] LABS: Glucose, Whole Blood 156 mg/dL (60-115)
--- NOTE | 2024-09-05 14:03 | W.MHC.F2F ---
Service Date Service Date: 09/05/24 Encounter Date of encounter: 09/05/24 Reasons for Services Signs and symptoms assessed: mastectomy incision pain, incision appearance, ALIYA drain output Reason for detention: wound care and postoperative assessment and/or care Homebound: Leaving the home is medically contraindicated at this time without the asist of a device and/or another person due th the listed conditions above and below. Reason homebound: weakness related to hospital stay and unable to drive Homebound supporting statement: Edwige Roy is s/p bilateral mastectomy with left axillary sentinel lymph node biopsy on 09/03/24. The prcedure was uncomplicated. She will need home VNA for drain care and wound checks. Certification: Based on the above findings, I certify that this patient is confined to the home and needs intermittent detention care, physical therapy and/or speech therapy, or continues to need occupational therapy. The patient is under my care, and I have initiated the establishment of the plan of care. The patient will be followed by a physician who will periodically review the plan of care. Time Spent With Patient Time: Total time managing care of this patient today ____ minutes.
[2024-09-05 16:13] LABS: Glucose, Whole Blood 160 mg/dL (60-115)
[2024-09-05 21:29] LABS: Glucose, Whole Blood 141 mg/dL (60-115)
[2024-09-05] MEDS: Atorvastatin Calcium 80 MG TABLET PO (22:13)
[2024-09-06] VITALS (7 sets, daily range): BP systolic 138–151; BP diastolic 65–71; PULSE 74–88; RESP 17–18; TEMP 36–36.5; O2SAT 93–97
[2024-09-06] MEDS: Acetaminophen 1,000 MG/100 ML PIGGYBACK 400 MG IV ×4 (02:49→23:51)
[2024-09-06] MEDS: Omeprazole 20 MG CAPSULE.DR PO (05:54)
[2024-09-06 07:25] LABS: Glucose, Whole Blood 122 mg/dL (60-115)
[2024-09-06] MEDS: Fluticasone/Vilanterol 200/25 BLST.W.DEV 1 PUFF INHALE (08:08)
[2024-09-06] MEDS: metFORMIN HCl 1,000 MG TABLET 1000 MG PO ×2 (08:29→20:14)
[2024-09-06] MEDS: hydroCHLOROthiazide 12.5 MG TABLET PO (08:29)
[2024-09-06] MEDS: Empagliflozin 25 MG TABLET PO (08:29)
[2024-09-06] MEDS: Fluticasone Propionate Nasal 16 GM SPRAY 1 SPRAY NOSTRIL-B (08:29)
[2024-09-06] MEDS: SITagliptin Phosphate 100 MG TABLET PO (08:30)
[2024-09-06] MEDS: Docusate Sodium 100 MG CAPSULE PO ×2 (08:30→20:14)
[2024-09-06] MEDS: oxyCODONE HCl Immed Release 5 MG TABLET PO (08:30)
[2024-09-06] MEDS: lisinopriL 20 MG TABLET PO (08:30)
[2024-09-06] MEDS: Loratadine 10 MG TABLET PO (08:30)
--- NOTE | 2024-09-06 09:26 | P.PNGS_ITS ---
Subjective Subjective Date of Service: 09/06/24 Interval history: POD 3 following bilateral mastectomy. She complains of soreness in bilateral incisions especially in the axilla. She is concerned about drain care once she goes home as she is alone. She does report the pain medication is helping. Physical Exam 2 Vital Signs: Vital Signs: Last Vital Signs Temp 97.7 F 09/06/24 07:55 Pulse 78 09/06/24 08:10 Resp 18 09/06/24 08:10 BP 148/70 H 09/06/24 08:30 Pulse Ox 95 09/06/24 07:55 O2 Del Method Room Air 09/06/24 07:55 O2 Flow Rate 2 09/03/24 18:04 BMI result Body Mass Index 39.9 Const: General: no acute distress Nutritional Appearance: well nourished Orientation/consciousness: patient oriented x3 Chest: Other: Dressings clean and intact. Minimal ecchymosis. Skin flaps are healthy. No hematoma or seroma appreciated. ALIYA draining scant serosanguineous fluid. Skin: Other: Warm, dry, no rash Neuro: General: patient oriented x3 Extrem: Other: No arm edema appreciated Objective Data Active Medications Albuterol Sulfate (Albuterol Sulfate 90 Mcg 8 Gm Inhaler) 1 puff INHALE QID PRN PRN Reason: shortness of breath or wheezing Atorvastatin Calcium (Atorvastatin Calcium 80 Mg Tablet) 80 mg PO BEDTIME [facility] Last Admin: 09/05/24 22:13 Dose: 80 mg Documented By: GEOVANNA Calcium Carbonate (Calcium Carbonate 750 Mg Tab.Chew) 750 mg PO Q4H PRN PRN Reason: Heartburn Dextrose (Dextrose 50 % 25 Gm/50 Ml Syringe) 25 gm IVPUSH Q15M PRN; Protocol PRN Reason: per Hypoglycemia Standing Ord. Docusate Sodium (Docusate Sodium 100 Mg Capsule) 100 mg PO BID [facility] Last Admin: 09/06/24 08:30 Dose: 100 mg Documented By: MARY Empagliflozin (Empagliflozin 25 Mg Tablet) 25 mg PO DAILY [facility] Last Admin: 09/06/24 08:29 Dose: 25 mg Documented By: MARY Fluticasone Propionate (Fluticasone Propionate Nasal 16 Gm [place]) 1 spray NOSTRIL-B BID [facility] Last Admin: 09/06/24 08:29 Dose: 1 spray Documented By: MARY Fluticasone/Vilanterol (Fluticasone/Vilanterol 200/25 Blst.W.Dev) 1 puff INHALE RDAILY [facility] Last Admin: 09/06/24 08:08 Dose: 1 puff Documented By: JULIAN Glucose (Glucose Gel 15 Gm Gel..Gram.) 15 gm PO Q15M PRN; Protocol PRN Reason: per Hypoglycemia Standing Ord. Hydrochlorothiazide (Hydrochlorothiazide 12.5 Mg Tablet) 12.5 mg PO DAILY [facility] Last Admin: 09/06/24 08:29 Dose: 12.5 mg Documented By: MARY Acetaminophen (Ofirmev) 1,000 mg in 100 mls @ 400 mls/hr IV Q6H [facility] Last Infusion: 09/06/24 08:55 Dose: Infused Documented By: MARY Insulin Human Lispro (Insulin Lispro 100 Unit/Ml 3 Ml Vial) 0 unit SUBCUT QIDACHS [facility]; Protocol Last Admin: 09/06/24 07:29 Dose: Not Given Documented By: MARY Non-Admin Reason: No Insulin Coverage Lisinopril (Lisinopril 20 Mg Tablet) 20 mg PO DAILY [facility] Last Admin: 09/06/24 08:30 Dose: 20 mg Documented By: MARY Loratadine (Loratadine 10 Mg Tablet) 10 mg PO DAILY [facility] Last Admin: 09/06/24 08:30 Dose: 10 mg Documented By: MARY Magnesium Hydroxide (Milk Of Magnesia 30 Ml Oral.Susp) 30 ml PO DAILY PRN PRN Reason: Constipation Melatonin (Melatonin 3 Mg Tablet) 6 mg PO BEDTIME PRN PRN Reason: Insomnia Metformin HCl (Metformin Hcl 1,000 Mg Tablet) 1,000 mg PO BID [facility] Last Admin: 09/06/24 08:29 Dose: 1,000 mg Documented By: MARY Morphine Sulfate (Morphine Sulfate 4 Mg/Ml Cartridge) 4 mg IVPUSH Q4H PRN; Protocol PRN Reason: Pain, Severe (Pain Scale 7-10) Last Admin: 09/04/24 07:59 Dose: 4 mg Documented By: VY Omeprazole (Omeprazole 20 Mg Capsule.Dr) 20 mg PO DAILY@0630 [facility] Last Admin: 09/06/24 05:54 Dose: 20 mg Documented By: GEOVANNA Ondansetron HCl (Ondansetron Hcl 4 Mg/2 Ml Vial) 4 mg IVPUSH Q6H PRN PRN Reason: Nausea and Vomiting Oxycodone HCl (Oxycodone Hcl Immed Release 5 Mg Tablet) 5 mg PO Q4H PRN PRN Reason: Pain, Moderate(Pain Scale 4-6) Last Admin: 09/06/24 08:30 Dose: 5 mg Documented By: MARY Polyethylene Glycol (Polyethylene Glycol 3350 17 Gm Powd.Pack) 17 gm PO DAILY PRN PRN Reason: constipation Sitagliptin Phosphate (Sitagliptin Phosphate 100 Mg Tablet) 100 mg PO DAILY [facility] Last Admin: 09/06/24 08:30 Dose: 100 mg Documented By: MARY Sodium Chloride (0.9 % Sodium Chloride Flush 3 Ml Syringe) 3 ml IVFLUSH QSHIFT [facility] Last Admin: 09/06/24 08:39 Dose: Not Given Documented By: MARY Non-Admin Reason: IV Running Labs 09/04/24 06:08 09/05/24 08:25 Labs: Laboratory Results - last 24 hr 09/05/24 09/05/24 09/05/24 08:25 10:59 16:08 Estim Creat Clear Calc 92.8 Estimated GFR > 60 POC Glucose 156 H 160 H 09/05/24 09/06/24 21:18 07:21 Estim Creat Clear Calc Estimated GFR POC Glucose 141 H 122 H Procedures Date of Service Date of Service: 09/06/24 Progress Note: A&P Assessment and plan (1) S/P bilateral mastectomy: Status: Acute (2) Invasive ductal carcinoma of breast, stage 3: Status: Acute Plan POD 3 following bilateral mastectomy with left axillary sentinel node biopsy. She is doing well but still has discomfort in the bilateral axillas. ALIYA drainage has improved as well. We will keep her for another day with probable discharge to home tomorrow with VNA. Patient expressed understanding and agrees with the plan. Time Spent With Patient Time: Total time managing care of this patient today ____ minutes. Quality Stroke Does the patient have a stroke diagnosis?: No VTE Prior VTE?: No VTE Risk Level:: Medical - moderate - high VTE Device Contraindication: N/A - Device Ordered VTE Drug Contraindication: N/A - Med Ordered
[2024-09-06 11:24] LABS: Glucose, Whole Blood 142 mg/dL (60-115)
[2024-09-06] MEDS: 0.9 % Sodium Chloride Flush 3 ML SYRINGE IVFLUSH ×2 (15:01→20:17)
[2024-09-06 16:15] LABS: Glucose, Whole Blood 163 mg/dL (60-115)
[2024-09-06] MEDS: Insulin Lispro 100 UNIT/ML 3 ML VIAL SUBCUT ×2 (17:01→20:15)
[2024-09-06 19:53] LABS: Glucose, Whole Blood 190 mg/dL (60-115)
[2024-09-06] MEDS: Atorvastatin Calcium 80 MG TABLET PO (20:14)
[2024-09-06] MEDS: Melatonin 3 MG TABLET 6 MG PO (23:48)
[2024-09-07 03:15] VITALS: BP 143/78; PULSE 77; RESP 18; TEMP 36.4; O2SAT 96
[2024-09-07] MEDS: oxyCODONE HCl Immed Release 5 MG TABLET PO (03:53)
[2024-09-07] MEDS: Omeprazole 20 MG CAPSULE.DR PO (06:29)
[2024-09-07 07:40] VITALS: BP 142/76; PULSE 77; RESP 16; TEMP 36; O2SAT 92
[2024-09-07 07:48] LABS: Glucose, Whole Blood 138 mg/dL (60-115)
[2024-09-07] MEDS: Fluticasone/Vilanterol 200/25 BLST.W.DEV 1 PUFF INHALE (07:59)
[2024-09-07 08:00] VITALS: PULSE 77; RESP 16; O2SAT 92
[2024-09-07] MEDS: 0.9 % Sodium Chloride Flush 3 ML SYRINGE IVFLUSH (08:02)
[2024-09-07] MEDS: ondansetron HCL 4 MG/2 ML VIAL IVPUSH (08:02)
[2024-09-07 08:03] VITALS: BP 142/76
[2024-09-07] MEDS: Empagliflozin 25 MG TABLET PO (08:03)
[2024-09-07] MEDS: SITagliptin Phosphate 100 MG TABLET PO (08:03)
[2024-09-07] MEDS: hydroCHLOROthiazide 12.5 MG TABLET PO (08:03)
[2024-09-07] MEDS: Fluticasone Propionate Nasal 16 GM SPRAY 1 SPRAY NOSTRIL-B (08:03)
[2024-09-07] MEDS: metFORMIN HCl 1,000 MG TABLET 1000 MG PO (08:03)
[2024-09-07 08:04] VITALS: BP 142/76
[2024-09-07] MEDS: lisinopriL 20 MG TABLET PO (08:04)
[2024-09-07] MEDS: Loratadine 10 MG TABLET PO (08:04)
[2024-09-07] MEDS: Acetaminophen 1,000 MG/100 ML PIGGYBACK 400 MG IV (08:14)
--- NOTE | 2024-09-07 09:21 | MHC.CM.PN ---
PT WILL DC HOME TODAY WITH [facility] FOR [facility] SON TO TRANSPORT
--- NOTE | 2024-09-07 10:12 | P.PNGS_ITS ---
Subjective Subjective Date of Service: 09/07/24 Interval history: Patient feels improved today. Chest pain is improving as well. Reports striking herself in the chest overnight without realizing it. ALIYA output is decreasing. Physical Exam 2 Vital Signs: Vital Signs: Last Vital Signs Temp 96.8 F 09/07/24 07:40 Pulse 77 09/07/24 08:00 Resp 16 09/07/24 08:00 BP 142/76 H 09/07/24 08:04 Pulse Ox 92 09/07/24 07:40 O2 Del Method Room Air 09/07/24 07:40 O2 Flow Rate 2 09/03/24 18:04 BMI result Body Mass Index 39.9 Const: General: no acute distress Nutritional Appearance: well nourished Orientation/consciousness: patient oriented x3 Chest: Other: Dressings clean and intact. Minimal ecchymosis. Skin flaps are healthy. No hematoma or seroma appreciated. ALIYA draining scant serosanguineous fluid. Skin: Other: Warm, dry, no rash Neuro: General: patient oriented x3 Extrem: Other: No arm edema appreciated Objective Data Active Medications Albuterol Sulfate (Albuterol Sulfate 90 Mcg 8 Gm Inhaler) 1 puff INHALE QID PRN PRN Reason: shortness of breath or wheezing Atorvastatin Calcium (Atorvastatin Calcium 80 Mg Tablet) 80 mg PO BEDTIME [facility] Last Admin: 09/06/24 20:14 Dose: 80 mg Documented By: GEOVANNA Calcium Carbonate (Calcium Carbonate 750 Mg Tab.Chew) 750 mg PO Q4H PRN PRN Reason: Heartburn Dextrose (Dextrose 50 % 25 Gm/50 Ml Syringe) 25 gm IVPUSH Q15M PRN; Protocol PRN Reason: per Hypoglycemia Standing Ord. Docusate Sodium (Docusate Sodium 100 Mg Capsule) 100 mg PO BID [facility] Last Admin: 09/07/24 08:04 Dose: Not Given Documented By: MARY Non-Admin Reason: Patient Refused Empagliflozin (Empagliflozin 25 Mg Tablet) 25 mg PO DAILY [facility] Last Admin: 09/07/24 08:03 Dose: 25 mg Documented By: MARY Fluticasone Propionate (Fluticasone Propionate Nasal 16 Gm [place]) 1 spray NOSTRIL-B BID [facility] Last Admin: 09/07/24 08:03 Dose: 1 spray Documented By: MARY Fluticasone/Vilanterol (Fluticasone/Vilanterol 200/25 Blst.W.Dev) 1 puff INHALE RDAILY [facility] Last Admin: 09/07/24 07:59 Dose: 1 puff Documented By: DARWIN Glucose (Glucose Gel 15 Gm Gel..Gram.) 15 gm PO Q15M PRN; Protocol PRN Reason: per Hypoglycemia Standing Ord. Hydrochlorothiazide (Hydrochlorothiazide 12.5 Mg Tablet) 12.5 mg PO DAILY [facility] Last Admin: 09/07/24 08:03 Dose: 12.5 mg Documented By: MARY Acetaminophen (Ofirmev) 1,000 mg in 100 mls @ 400 mls/hr IV Q6H PRN PRN Reason: Pain, Mild (Pain Scale 1-3) Last Infusion: 09/07/24 08:41 Dose: Infused Documented By: MARY Insulin Human Lispro (Insulin Lispro 100 Unit/Ml 3 Ml Vial) 0 unit SUBCUT QIDACHS [facility]; Protocol Last Admin: 09/07/24 07:52 Dose: Not Given Documented By: MARY Non-Admin Reason: No Insulin Coverage Lisinopril (Lisinopril 20 Mg Tablet) 20 mg PO DAILY [facility] Last Admin: 09/07/24 08:04 Dose: 20 mg Documented By: MARY Loratadine (Loratadine 10 Mg Tablet) 10 mg PO DAILY [facility] Last Admin: 09/07/24 08:04 Dose: 10 mg Documented By: MARY Magnesium Hydroxide (Milk Of Magnesia 30 Ml Oral.Susp) 30 ml PO DAILY PRN PRN Reason: Constipation Melatonin (Melatonin 3 Mg Tablet) 6 mg PO BEDTIME PRN PRN Reason: Insomnia Last Admin: 09/06/24 23:48 Dose: 6 mg Documented By: GEOVANNA Metformin HCl (Metformin Hcl 1,000 Mg Tablet) 1,000 mg PO BID [facility] Last Admin: 09/07/24 08:03 Dose: 1,000 mg Documented By: MARY Morphine Sulfate (Morphine Sulfate 4 Mg/Ml Cartridge) 4 mg IVPUSH Q4H PRN; Protocol PRN Reason: Pain, Severe (Pain Scale 7-10) Last Admin: 09/04/24 07:59 Dose: 4 mg Documented By: VY Omeprazole (Omeprazole 20 Mg [place].) 20 mg PO DAILY@0630 [facility] Last Admin: 09/07/24 06:29 Dose: 20 mg Documented By: GEOVANNA Ondansetron HCl (Ondansetron Hcl 4 Mg/2 Ml Vial) 4 mg IVPUSH Q6H PRN PRN Reason: Nausea and Vomiting Last Admin: 09/07/24 08:02 Dose: 4 mg Documented By: MARY Oxycodone HCl (Oxycodone Hcl Immed Release 5 Mg Tablet) 5 mg PO Q4H PRN PRN Reason: Pain, Moderate(Pain Scale 4-6) Last Admin: 09/07/24 03:53 Dose: 5 mg Documented By: GEOVANNA Comments: per pt request Polyethylene Glycol (Polyethylene Glycol 3350 17 Gm Powd.Pack) 17 gm PO DAILY PRN PRN Reason: constipation Sitagliptin Phosphate (Sitagliptin Phosphate 100 Mg Tablet) 100 mg PO DAILY [facility] Last Admin: 09/07/24 08:03 Dose: 100 mg Documented By: MARY Sodium Chloride (0.9 % Sodium Chloride Flush 3 Ml Syringe) 3 ml IVFLUSH QSHIFT [facility] Last Admin: 09/07/24 08:02 Dose: 3 ml Documented By: MARY Labs 09/04/24 06:08 09/05/24 08:25 Labs: Laboratory Results - last 24 hr 09/06/24 09/06/24 09/06/24 11:20 16:09 19:30 POC Glucose 142 H 163 H 190 H 09/07/24 07:37 POC Glucose 138 H Procedures Date of Service Date of Service: 09/07/24 Progress Note: A&P Assessment and plan (1) S/P bilateral mastectomy: Status: Acute (2) Invasive ductal carcinoma of breast, stage 3: Status: Acute Plan POD 4 following bilateral mastectomy with left axillary sentinel node biopsy. She is much improved this morning and ALIYA output is decreasing nicely. Patient feels ready for discharge to home today. She will follow-up with Dr. Conner later this week for drain removal. Patient understands and agrees with the plan. Time Spent With Patient Time: Total time managing care of this patient today ____ minutes. Quality Stroke Does the patient have a stroke diagnosis?: No VTE Prior VTE?: No VTE Risk Level:: Medical - moderate - high VTE Device Contraindication: N/A - Device Ordered VTE Drug Contraindication: N/A - Med Ordered
[2024-09-07 11:42] LABS: Glucose, Whole Blood 145 mg/dL (60-115)
--- NOTE | 2024-09-07 14:05 | P.DS_ITS ---
DS: Providers Provider Date of Service: 09/07/24 Date of admission: 09/03/24 10:20 Date of discharge: 09/07/24 Primary care physician: Brady Watson PA-C Attending physician on admission: Thomas Conner Consults: 09/03/24 19:30 Consult to Hospitalist Routine Comment: Consulting Provider: [facility] [place] Hospitalists Reason For Exam: s/p b/l mastectomy, HTN, diabetes mellitus, asthma DS: Diagnosis Discharge Diagnosis (1) S/P bilateral mastectomy: Status: Acute (2) Invasive ductal carcinoma of breast, stage 3: Status: Acute DS: Summary Hospital Course Hospital Course: HPI AT ADMISSION: The patient is a 64 year old female who has not need diagnosed his cancer on the left with invasive ductal and lobular features. She wanted to proceed with mastectomy instead of breast conservation treatment. She also insisted on being mastectomy on the contralateral breast, stating multiple times that she did not ?need to her breast? and that she wanted asymmetry. She did not want any reconstructive surgery. She understood the technique of the planned procedure as well as the risks, benefits, and alternatives. HOSPITAL COURSE: On 09/03/24, Bilateral mastectomy with sentinel biopsy on the left. She tolerated the procedure well. She had an uncomplicated recovery course. She remained inpatient for 4 days for post operative pain management. On the day of discharge, she was tolerating a solid diet, was comfortable on oral analgesics. She was ambulating. Her mastectomy incision sites were clean appearing with viable flaps, small amount of fullness medially. ALIYA drain output was low, serosanguineous. She was hemodynamically stable. She felt ready for discharge to home. She was discharged on 09/07/24 in stable condtion with VNA services for ALIYA drain care, wound checks. She is to follow up in the office in 2 weeks for wound and drain check. Status at Discharge Functional status at discharge: independent ambulation Overall status at discharge: patient is progressing back to baseline Time Attestation Discharge Coordination Time (in mins): 40 Quality: Safe Use of Opioids Does Pt have an Active Cancer Diagnosis on the Problem List?: Yes Opioid Measure Date for [facility] Report: 08/09/24 Opioid Measure Time for [facility] Report: 08:51 Quality: Stroke Does the patient have a stroke diagnosis?: No Physical Exam Vital Signs: Vital Signs: Last Vital Signs Temp 96.8 F 09/05/24 07:48 Pulse 76 09/05/24 08:06 Resp 16 09/05/24 08:06 BP 122/74 09/05/24 09:14 Pulse Ox 94 09/05/24 07:48 O2 Del Method Room Air 09/05/24 07:48 O2 Flow Rate 2 09/03/24 18:04 BMI result Body Mass Index 39.9 Const: Orientation/consciousness: patient oriented x3 Chest: Other: mastectomy incision sites were clean appearing with viable flaps, small amount of fullness medially, ALIYA drain output was low, serosanguineous Resp: Effort & Inspection: normal respiratory effort Skin: General skin exam: no rashes or lesions noted Neuro: General: patient oriented x3 and moves all extremities DS: Data Data Completed and Pending Completed studies during hospitalization [Text1]: Procedures Excision of Abdomen Skin, External Approach (04/19/20) Excision of Buttock Skin, External Approach (04/19/20) Excision of Inguinal Skin, External Approach (04/19/20) Excision of Left Upper Leg Skin, External Approach (04/19/20) Excision of Right Upper Leg Skin, External Approach (04/19/20) Pending studies at discharge: Pending at discharge 09/03/24 11:54 Surgical [PTH] Routine Labs on day of discharge: Laboratory Results - last 24 hr 09/04/24 09/04/24 09/05/24 15:58 20:25 07:24 Creatinine Estim Creat Clear Calc Estimated GFR POC Glucose 249 H 177 H 167 H 09/05/24 09/05/24 08:25 10:59 Creatinine 0.83 Estim Creat Clear Calc 92.8 Estimated GFR > 60 POC Glucose 156 H Discharge Plan Discharge Anticipated Discharge Date/Time: 09/07/24 08:48 Patient Disposition: Home Health Service Discharge Diagnosis: s/p bilateral mastectomy, left sentinel lymph node biopsy Referrals: [facility] [Outside] - 1 Week Brady Watson PA-C [Primary Care Provider] - 1 Week Thomas Conner MD [Physician] - 1 Week Discharge Medications: New docusate sodium [Colace] 100 mg capsule 100 mg PO BID PRN (Reason: constipation) Qty: 30 0RF oxycodone 5 mg tablet 5 mg PO Q4H PRN (Reason: pain (scale score 7-10)) Qty: 24 0RF Rx Instructions: Partial Fill upon patient request. Take 1-2 tablets as needed every 4-6 hours for pain. ondansetron HCl 4 mg tablet 4 mg PO Q8H PRN (Reason: nausea and vomiting) Qty: 20 0RF Continued miscellaneous medical supply Misc See Rx Instructions miscellaneous .COMPLEX Qty: 1 0RF Rx Instructions: 1 pair diabetic shoes with inserts miscellaneous; miscellaneous medical supply Misc See Rx Instructions miscellaneous .COMPLEX Qty: 1 0RF Rx Instructions: Right AFO ankle brace miscellaneous; Jardiance 25 mg tablet 25 mg PO QAM Qty: 90 2RF metformin 1,000 mg tablet 1,000 mg PO BID Qty: 180 2RF lisinopril-hydrochlorothiazide 20-12.5 mg tablet 1 tab PO DAILY Qty: 90 2RF acetaminophen [Tylenol Arthritis Pain] 650 mg tablet extended release 650 mg PO Q12H 90 Days Qty: 180 1RF ibuprofen 800 mg tablet 800 mg PO Q8H PRN (Reason: pain) 30 Days Qty: 90 4RF aspirin 81 mg tablet,delayed release (DR/EC) 81 mg PO DAILY albuterol sulfate 90 mcg/actuation HFA aerosol inhaler 1 inh inhalation QID PRN (Reason: shortness of breath or wheezing) 30 Days Qty: 8.5 2RF budesonide-formoterol [Symbicort] 160-4.5 mcg/actuation HFA aerosol inhaler 2 puff PO BID Qty: 30.6 3RF cetirizine 10 mg tablet 10 mg PO DAILY 90 Days Qty: 90 2RF fluticasone propionate 50 mcg/actuation spray,suspension 1 spray intranasal BID 90 Days Qty: 3 1RF omeprazole 20 mg capsule,delayed release(DR/EC) 20 mg PO DAILY Qty: 90 2RF rosuvastatin 20 mg tablet 20 mg PO DAILY Qty: 90 1RF Januvia 100 mg tablet 100 mg PO DAILY Qty: 90 2RF Discharge Orders: Discharge Order (Routine); Ordered 09/07/24 Ordered By: Chad Robledo Diet: Advance to usual diet Activity on Discharge: No heavy lifting Stand Alone Forms: Patient Portal Discharge page Print Language: Ma[place] Activity Restrictions/Additional Instructions: If the incision area is tender, you may apply an ice pack for short intervals (No more than 20 minutes on, followed by at least 20 minutes off). Do not apply heat. Do not use creams, lotions, or topical antibiotics. These can cause infection or allergic reaction. Ok to shower. No tub bath. You have steris on your incision and these will fall off in around 1 week. NO HEAVY LIFTING (>10lbs). ALIYA drain care- empty drain BID and as needed. Record output. Bring record to follow up appointment. Follow up in office next week ([phone]) to have drains removed Call Your Doctor If: ? ? -Your temperature exceeds 101.5? F? ? ? -You experience excessive pain or swelling ? ? -You have an unexpected reaction to medication ? ? -You have excessive bleeding ? ? -You experience continued vomiting/nausea ? ? -Your incision begins to separate ?? ? -Your incision shows signs of infection such as increased redness, swelling, excessive pain, drainage (light blood or clear fluid is normal) or heat Care Plan Goals: Return to baseline health and resume normal activities following recovery period. Eventual ALIYA drain removal. Health Concerns: invasive ductal carcinoma of left breast asthma diabetes mellitus HTN Plan of Treatment: s/p bilateral mastectomy with left sentinel lymph node biopsy pain control ALIYA drain care VNA services for drain care f/u in office next week for drain removal, wound check Assessment: Doing well post op. Patient Instructions: Rory-Kovacs Drain Care (DC), Mastectomy (DC) Discharge Date/Time: 09/07/24 12:51
== END 2024-09-07 12:51 | disposition home health service (06) | DRG 581 ==
LOC: HO.SSSA 10:32 → HO.S3 19:04
PROVIDERS: Physician Assistant Surgical; Student in an Organized Health Care Education/Training Program; Admitting Provider Surgery; PCP Physician Assistant; Visit Provider Surgery
PROC: 07B60ZX Excision of Left Axillary Lymphatic, Open Approach, Diagnostic (ICD-10-PCS; CPT 19303; principal; 2024-09-03 10:40)
PROC: 07B60ZX Excision of Left Axillary Lymphatic, Open Approach, Diagnostic (ICD-10-PCS; CPT 19303; 2024-09-03 10:40)
DX: C50.912 Malignant neoplasm of unspecified site of left female breast (principal); Z17.411 Hormone receptor positive with human epidermal growth factor receptor 2 negative status; G89.18 Other acute postprocedural pain; E78.5 Hyperlipidemia, unspecified; I10 Essential (primary) hypertension; E66.813 Obesity, class 3; Z68.39 Body mass index [BMI] 39.0-39.9, adult; J45.40 Moderate persistent asthma, uncomplicated; E11.65 Type 2 diabetes mellitus with hyperglycemia; Z79.51 Long term (current) use of inhaled steroids; Z79.82 Long term (current) use of aspirin; Z79.84 Long term (current) use of oral hypoglycemic drugs; Z79.899 Other long term (current) drug therapy
CPT/HCPCS: 19303; 38525; 36415; 78195; 82565; 82947; 85025; 86850; 86900; 86901; 88307; 88342; 99221; A9520; J0131; J0665; J0690; J1100; J1171; J2003; J2250; J2270; J2405; J2704; J3010; J7120

== ENCOUNTER → 2024-09-03 10:20 | Outpatient (BNV) | payer MEDICARE, MEDICAID, SELFPAY | PROVIDERS: Admitting Provider Surgery; PCP Physician Assistant; Visit Provider Nurse Practitioner Family | DX: E11.65 Type 2 diabetes mellitus with hyperglycemia (principal) | CPT/HCPCS: 99222; 99499 ==

== ENCOUNTER → 2024-09-03 10:20 | Outpatient (BNV) | payer MEDICARE, MEDICAID, SELFPAY | PROVIDERS: Admitting Provider Surgery; PCP Physician Assistant; Visit Provider Surgery | DX: Z90.13 Acquired absence of bilateral breasts and nipples (principal); C50.912 Malignant neoplasm of unspecified site of left female breast | CPT/HCPCS: 99024; 99499; G0180 ==

== ENCOUNTER 2024-09-10 11:13 | Outpatient (AMB) | payer MEDICARE, MEDICAID, SELFPAY ==
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
[2024-09-10 11:37] VITALS: BP 172/88; PULSE 104
--- OUTSIDE RECORDS SUMMARY | 2024-09-10 12:54 | XMS_ITS | Clinical Summary ---
Author Organization [facility] Address [address] [place] [address] Care Team Providers Care Principal Network Architect Name Role Phone Unavailable Primary Care Provider [...] of Treatment Not on file [address] [id number]
== END 2024-09-10 12:21 | disposition home or self-care (01) ==
LOC: HO.HGS 11:14
PROVIDERS: PCP Physician Assistant; Visit Provider Surgery
DX: C50.912 Malignant neoplasm of unspecified site of left female breast (principal)
CPT/HCPCS: 99024

== ENCOUNTER → 2024-09-10 11:13 | Outpatient (BNVA) | payer MEDICARE, MEDICAID, SELFPAY | PROVIDERS: PCP Physician Assistant; Visit Provider Surgery | DX: Z48.3 Aftercare following surgery for neoplasm (principal); Z79.891 Long term (current) use of opiate analgesic; Z98.890 Other specified postprocedural states; Z90.13 Acquired absence of bilateral breasts and nipples | CPT/HCPCS: 99212 ==

== ENCOUNTER 2024-09-17 10:26 | Outpatient (AMB) | payer MEDICARE, MEDICAID, SELFPAY ==
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
[2024-09-17 10:30] VITALS: BP 170/103; PULSE 99
--- OUTSIDE RECORDS SUMMARY | 2024-09-17 11:53 | XMS_ITS | Clinical Summary ---
Author Organization [facility] Address [address] [place] [address] Care Team Providers Care Agricultural Education Teacher Name Role Phone Unavailable Primary Care Provider [...] of Treatment Not on file [address] [address]
== END 2024-09-17 10:57 | disposition home or self-care (01) ==
LOC: HO.HGS 10:27
PROVIDERS: PCP Physician Assistant; Visit Provider Surgery
DX: C50.912 Malignant neoplasm of unspecified site of left female breast (principal)
CPT/HCPCS: 99024

== ENCOUNTER → 2024-09-17 10:26 | Outpatient (BNVA) | payer MEDICARE, MEDICAID, SELFPAY | PROVIDERS: PCP Physician Assistant; Visit Provider Surgery | DX: Z48.3 Aftercare following surgery for neoplasm (principal); C50.912 Malignant neoplasm of unspecified site of left female breast; Z90.13 Acquired absence of bilateral breasts and nipples | CPT/HCPCS: 99212; 99495 ==

== ENCOUNTER 2024-09-17 12:30 | Outpatient (AMB) | payer MEDICARE, MEDICAID, SELFPAY ==
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
[2024-09-17 12:49] VITALS: BP 110/68; PULSE 93; TEMP 36.2; O2SAT 97; BMI 35.4
== END 2024-09-17 13:24 | disposition home or self-care (01) ==
LOC: HO.HMCH 12:31
PROVIDERS: PCP Physician Assistant; Visit Provider Physician Assistant
DX: C50.912 Malignant neoplasm of unspecified site of left female breast (principal); Z90.13 Acquired absence of bilateral breasts and nipples

== ENCOUNTER 2024-10-01 10:11 | Outpatient (AMB) | payer MEDICARE, MEDICAID, SELFPAY ==
[2024-10-01 10:20] VITALS: BP 126/60; PULSE 108; BMI 35.9
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
--- OUTSIDE RECORDS SUMMARY | 2024-10-01 10:43 | XMS_ITS | Clinical Summary ---
Author Organization [facility] Address [address] [place] [address] Care Team Providers Care Monitoring Analyst Name Role Phone Unavailable Primary Care Provider [...] of Treatment Not on file [address] [address]
--- OUTSIDE RECORDS SUMMARY | 2024-10-01 10:43 | XMS_ITS | Clinical Summary ---
Author Organization [address] [facility] Address [address] [place] [address] Phone Care Team Providers Care Piece Dye Worker Name Role Phone Mike Case MD Primary Care Provider [phone] Allergies No known active allergies Medications acetaminophen (TYLENOL 8 HOUR ORAL) Take 500 Tablets by mouth 3 times daily. Active Encounters Date Type Department Care Team Description 08/06/2024 8:45 AM EDT Office Visit Orthopedic 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; Arthritis of right ankle from Last 3 Months Social History Tobacco [...] - - Weight 104 kg (229 lb) 08/06/2024 8:31 AM EDT Height 172.7 cm (5' 7.99 ) 08/06/2024 8:31 AM ED T Body Mass Index 34.83 08/06/2024 8:31 AM EDT Plan of Treatment Upcoming Encounters Date Type Department Care Team (Late st Contact Info) Description 10/16/2024 1:00 PM EDT Office Visit Orthopedic Surgery - [place] [address] [phone] Riaz Tuttle, DPPamela [address] [address] Health Maintenance Due Date Last Done Comments Breast Cancer Screening 1960 Cervical Cancer Screening: Pap Smear 02/07/1981 Colorectal Cancer Screening: Colonoscopy 10/23/2023 Depression Screening 10/23/2023 HIV Screening 10/23/2023 Hepatitis C Screening 10/23/2023 Social Influencers of Health Screening 10/23/2023 COVID-19 Vaccine ( season) 2023 03/05/2023, 02/15/2022, 09/21/2021, Additional history exists DTaP,Tdap,and Td Vaccines (2 - Td or [...] Associated Diagnosis Comments XR FOOT 3+ VIEWS BILAT Routine 08/06/2024 8:27 AM EDT Follow-up exam XR FOOT 3+ VIEWS RIGHT Routine 07/02/2024 8:26 AM EDT Follow-up exam from Last 3 Months Results * XR Foot 3+ Views bilat (08/06/2024 8:27 AM EDT) Anatomical Region Laterality Modality Lower Extremities, Foot Bilateral Computed Radiography Narrative 08/06/2024 7:28 PM EDT Right foot 3 views Complete consolidation noted hardware intact no signs of failure or complication trabeculation through fusion site noted with reduction of deformity maintained Left foot 3 views Advanced posterior tibial tendon dysfunction advanced hindfoot midfoot arthritis Riaz Tuttle DPM IMG XR PROCEDURES Final R esult * XR Foot 3+ Views Right (07/02/2024 8:26 AM EDT) Anatomical Region Laterality Modality Lower Extremities, Foot Right Computed Radiography Narrative 07/02/2024 6:49 PM EDT Right foot 3 views Postoperative changes noted hardware is still intact without signs of failure Riaz Tuttle DPM IMG XR PROCEDURES Final R esult from Last 3 Months Insurance MEDICAID - [place] [facility] [place] [id number] Advance Directives Documents on File Type Date Recorded 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
== END 2024-10-01 10:26 | disposition home or self-care (01) ==
LOC: HO.HGS 10:12
PROVIDERS: PCP Physician Assistant; Visit Provider Surgery
DX: C50.912 Malignant neoplasm of unspecified site of left female breast (principal)
CPT/HCPCS: 99024

== ENCOUNTER → 2024-10-01 10:11 | Outpatient (BNVA) | payer MEDICARE, MEDICAID, SELFPAY | PROVIDERS: PCP Physician Assistant; Visit Provider Surgery | DX: Z48.3 Aftercare following surgery for neoplasm (principal); C50.912 Malignant neoplasm of unspecified site of left female breast; Z90.13 Acquired absence of bilateral breasts and nipples | CPT/HCPCS: 99212 ==

== ENCOUNTER → 2024-10-09 08:01 | Outpatient (BNV) | payer MEDICARE, MEDICAID, SELFPAY | PROVIDERS: Visit Provider Internal Medicine Medical Oncology | DX: C50.919 Malignant neoplasm of unspecified site of unspecified female breast (principal) | CPT/HCPCS: 99204 ==

== ENCOUNTER 2024-10-20 09:51 | Outpatient (REF) | payer MEDICARE, MEDICAID, SELFPAY ==
--- NOTE | ~2024-10-20 | MM_ITS ---
EXAMINATION: DXA BONE DENSITY AXIAL HISTORY: Osteopenia TECHNIQUE: [employer] Dual energy absorptiometry (DEXA) of the lumbar spine, total left hip, and femoral neck was performed. COMPARISON: There are no prior studies for comparison. FINDINGS: The bone mineral density of the lumbar spine is 1.637 g/cm2, corresponding to a T-score of 3.9, and a Z-score of 4.3. This is indicative of normal bone mineral density. The bone mineral density of the left total hip is 1.182 g/cm2, corresponding to a T-score of -1.4, and a Z-score of 1.7. This is indicative of normal bone mineral density. The bone mineral density of the left femoral neck is 1.100 g/cm2, corresponding to a T-score of 0.4, and a Z-score of 1.1. This is indicative of normal bone mineral density. MM/XR DEXA axial skeleton IMPRESSION: Based on bone mineral density, and according to World Health Organization (WHO) criteria, the diagnosis is consistent with normal bone mineral density. Statistically, 68% of repeat scans fall within 1 SD (+/- 0.010 g/cm2 for AP spine L1-L4) and 1 SD (+/- 0.012 g/cm2 for femur total) [employer] is a trademark of the [employer] [place] for Metabolic Bone Disease, a World Health Organization (WHO) Collaborating Center. Electronically signed by: Yuval Lin MD 10/20/2024 10:53 AM EDT
--- OUTSIDE RECORDS SUMMARY | 2024-10-20 10:36 | XMS_ITS | Clinical Summary ---
Author Organization [facility] Address [address] [place] [address] Care Team Providers Care Tax Accounting Manager Name Role Phone Unavailable Primary Care Provider [...] of Treatment Not on file [address] [phone]
== END 2024-10-20 09:52 | disposition home or self-care (01) ==
LOC: HO.MAMMO 09:51
PROVIDERS: PCP Physician Assistant; Visit Provider Internal Medicine Medical Oncology
DX: Z13.820 Encounter for screening for osteoporosis (principal); C50.919 Malignant neoplasm of unspecified site of unspecified female breast
CPT/HCPCS: 77080

== ENCOUNTER → 2024-10-20 10:00 | Outpatient (BNV) | payer MEDICARE, MEDICAID, SELFPAY | PROVIDERS: PCP Physician Assistant; Visit Provider Radiology Diagnostic Radiology | DX: E28.39 Other primary ovarian failure (principal) | CPT/HCPCS: 77080 ==

== ENCOUNTER 2024-11-05 11:04 | Outpatient (AMB) | payer MEDICARE, MEDICAID, SELFPAY ==
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
[2024-11-05 11:20] VITALS: BP 134/65; PULSE 94; BMI 36.2
--- OUTSIDE RECORDS SUMMARY | 2024-11-05 11:53 | XMS_ITS | Clinical Summary ---
Author Organization 175 [facility] Address 175 [place] [address] Phone Care Team Providers Care Construction Trench Digger Name Role Phone Mike Case MD Primary Care Provider +1- [phone] Allergies No known active allergies Medications acetaminophen (TYLENOL 8 HOUR ORAL) Take 500 Tablets by mouth 3 times daily. Active Encounters Date Type Department Care Team Description 10/16/2024 1:00 PM EDT Office Visit Orthopedic [facility] [address] [phone] Riaz Tuttle DPM Posterior tibial tendon dysfunction (PTTD) of left lower extremity (Primary Dx); Diabetic mononeuropathy simplex (CMS/HCC V24, CMS/HCC V28); Dermatophytosis of nail 08/06/2024 8:45 AM EDT Office Visit Orthopedic [facility] [address] [phone] Riaz Tuttle DPM Posterior tibial tendon dysfunction [...] PM EDT Office Visit Orthopedic Surgery - [place] [address] [phone] Riaz Tuttle, DPM [address] [phone] Health Maintenance Due Date Last Done Comments [...] Last 3 Months Insurance [place]ID - [place] [facility] [place] GO[place] [id number] Advance Directives Documents on File Type Date Recorded 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 ADULT [address] [place] [address] PCP - General 03/19/23
--- OUTSIDE RECORDS SUMMARY | 2024-11-05 11:53 | XMS_ITS | Clinical Summary ---
Author Organization [facility] Address [address] [place] [address] Care Team Providers Care Roster Clerk Name Role Phone Unavailable Primary Care [...] file Plan of Treatment Not on file [address] [address]
== END 2024-11-05 11:34 | disposition home or self-care (01) ==
LOC: HO.HGS 11:05
PROVIDERS: PCP Physician Assistant; Visit Provider Surgery
DX: C50.919 Malignant neoplasm of unspecified site of unspecified female breast (principal)
CPT/HCPCS: 99024

== ENCOUNTER → 2024-11-05 11:04 | Outpatient (BNVA) | payer MEDICARE, MEDICAID, SELFPAY | PROVIDERS: PCP Physician Assistant; Visit Provider Surgery | DX: C50.912 Malignant neoplasm of unspecified site of left female breast (principal); Z90.13 Acquired absence of bilateral breasts and nipples | CPT/HCPCS: 99212 ==

== ENCOUNTER → 2024-11-10 12:55 | Outpatient (REF) | payer MEDICARE, MEDICAID, SELFPAY ==
--- NOTE | 2024-11-10 12:59 | CA_ITS ---
Transthoracic Echocardiogram Patient (Last, First, Middle): Edwige Roy, Gender: Female Date of : 1960 Age: 64 Procedure Date: 11/10/2024 Procedure Type: Transthoracic Echocardiogram Location: OP Height: 172.72 cm Weight: 105.24 kg BSA: 2.18 m2 Heart Rate: 97 bpm BP: 124 / 80 mmHg Larder Cook: Referring MD: Loyd Munoz MD Symptoms: C50.919 Breast cancer pre chemo assessment Study Quality: Adequate ECG Rhythm: Sinus Conclusions: - The left ventricular systolic function is normal. The calculated ejection fraction is 60% by biplane method. - No obvious valvular pathology seen on this study. - There is mild dilatation of the ascending aorta measuring 3.80 cm. Findings Left Ventricle Normal left ventricular cavity size. There is mildly increased left ventricular wall thickness. The left ventricular systolic function is normal. The calculated ejection fraction is 60% by biplane method. There is no evidence of regional wall motion abnormalities. Diastolic function is normal for age. Right Ventricle Normal right ventricular cavity size and systolic function. Atria The left atrium is normal in size. Aortic Valve There is a normal trileaflet aortic valve. There is mild calcification of the aortic valve. There is no aortic valve regurgitation. Mitral Valve There is moderate mitral annular calcification. There is no mitral valve regurgitation. There is no mitral valve stenosis. Pulmonic Valve The pulmonic valve is likely normal. Tricuspid Valve There is trace tricuspid valve regurgitation. There is no evidence of pulmonary hypertension. Great Vessels The asc aorta is normal in size. There is mild dilatation of the ascending aorta measuring 3.80 cm. Venous The inferior vena cava is normal in size and collapses greater than 50% with inspiration. Pericardium/Pleural There is no evidence of pericardial effusion. Prior Study Comparison No prior study available for comparison. Recommendations, Care & Conclusions No obvious valvular pathology seen on this study. Measurements 2D Linear Measurements IVSd: 1.20 0.6-0.9/0.6-1.0 cm LVIDd: 3.96 3.9-5.3/4.2-5.9 cm LVIDd Index: 1.82 2.4-3.2/2.2-3.1 cm/m2 LVIDs: 2.36 2.0-3.6 cm LVPWd: 1.23 0.7-1.1 cm Ao Root: 3.30 2.1-3.5 cm LA Diam: 3.70 2.7-3.8/3.0-4.0 cm LAIDs Index: 1.70 1.5-2.3 cm/m2 LV Mass: 206.77 67-162/88-224 g LV Mass Index: 94.85 43-95/49-115 g/m2 LVOT Diam: 2.20 3.0+(-)1.3 cm 2D Systolic Function EF 4C: 58.30 >55% EF 2C: 63.20 >55% EF BiP: 60.40 >55% Mitral Valve MV VTI: 0.22 MV Pk Micah: 1.28 MV Mn Micah: 0.69 MV Pk Grad: 7.00 MV Mn Grad: 2.00 MV Pk E: 0.83 MV PK A: 1.07 MV Decel Time: 148.00 E/A: 0.80 E'Lateral: 6.85 E'Medial: 6.53 E/E' Med: 12.70 E/E' Lat: 12.10 PHT: 43.00 MVA PHT: 5.12 MVA Continuity: 3.27 [place]: 5.62 Aortic Valve AoV Pk Micah: 1.64 AoV Mn Micah: 1.15 AoV VTI: 0.33 AoV Pk Grad: 11.00 Aov Mn Grad: 6.00 SANDIE Cont.VTI: 2.12 LVOT LVOT Pk Micah: 0.98 LVOT Mn Micah: 0.66 LVOT VTI: 0.19 LVOT Pk Grad: 4.00 LVOT Mn Grad: 2.00 LVOT Diam: 2.20 LVOT Area: 3.80 Diastolic Function MV Pk E: 0.83 MV Pk A: 1.07 E/A: 0.80 E'Medial: 6.53 E/E' Med: 12.70 E' Laterial: 6.85 E/E' Lat: 12.10 Right Ventricle TAPSE (mm): 23.00 TVS' Micah: 13.00 Tricuspid Valve TR Pk Micah: 2.33 TR Pk Grad: 22.00 RA Press: 3.00 RVSP: 25.00 Great Vessels Aorta Ao Root-2D: 3.30 2.0-3.7 cm Ao Asc: 3.80 2.1-3.4 cm Ao Arch: 3.30 Pulmonary Valve PV Pk Micah: 0.95 Peak PV Grad: 4.00 Updated in Other Vendor System with Status of Final Carlito Gonzalez MD electronically signed on 11/11/2024 8:52:22 AM with status of Final
--- OUTSIDE RECORDS SUMMARY | 2024-11-10 12:59 | XMS_ITS | Clinical Summary ---
Author Organization 175 [facility] Address 175 [place] [address] Phone Care Team Providers Care Tomato Paste Maker Name Role Phone Mike Case MD Primary Care Provider +1- [phone] Allergies No known active allergies Medications acetaminophen (TYLENOL 8 HOUR ORAL) Take 500 Tablets by mouth 3 times daily. Active Encounters Date Type Department Care Team Description 10/16/2024 1:00 PM EDT Office Visit Orthopedic Surgery - [place] 250 175 [facility] [address] [place] [phone] Riaz Tuttle, DPM Posterior tibial tendon dysfunction (PTTD) of left lower extremity (Primary Dx); Diabetic mononeuropathy simplex (CMS/HCC V24, CMS/HCC V28); Dermatophytosis of nail from Last 3 [...] PM EDT Office Visit Orthopedic Surgery - [place] [address] [phone] Riaz Tuttle, DPM [address] [address] Health Maintenance Due Date Last Done Comments [...] on patient's age to complete this topic [place] [facility] [place] [id number] Advance Directives Documents on File Type Date Recorded 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
--- OUTSIDE RECORDS SUMMARY | 2024-11-10 12:59 | XMS_ITS | Clinical Summary ---
Author Organization [facility] Address [address] [place] [address] Care Team Providers Care Air Traffic Control Manager Name Role Phone Unavailable Primary Care [...] file Plan of Treatment Not on file [address] [address]
== END ==
LOC: HO.CARD 12:55
PROVIDERS: PCP Physician Assistant; Visit Provider Internal Medicine Medical Oncology
DX: C50.919 Malignant neoplasm of unspecified site of unspecified female breast (principal)
CPT/HCPCS: 93306

== ENCOUNTER → 2024-11-10 12:59 | Outpatient (BNV) | payer MEDICARE, MEDICAID, SELFPAY | PROVIDERS: PCP Physician Assistant; Visit Provider Internal Medicine | DX: Z01.818 Encounter for other preprocedural examination (principal); C50.919 Malignant neoplasm of unspecified site of unspecified female breast; I34.81 Nonrheumatic mitral (valve) annulus calcification | CPT/HCPCS: 93306 ==

== ENCOUNTER 2024-11-19 10:57 | Day surgery (SDC) | payer MEDICARE, MEDICAID, SELFPAY ==
--- OUTSIDE RECORDS SUMMARY | 2024-11-04 13:07 | XMS_ITS | Clinical Summary ---
Author Organization 175 [facility] Address 175 [place] [address] Phone Care Team Providers Care Remote Pilot Operator Name Role Phone Mike Case MD Primary Care Provider +1- [phone] Allergies No known active allergies Medications acetaminophen (TYLENOL 8 HOUR ORAL) Take 500 Tablets by mouth 3 times daily. Active Encounters Date Type Department Care Team Description 10/16/2024 1:00 PM EDT Office Visit Orthopedic [facility] [address] [phone] Riaz Tuttle DPM Posterior tibial tendon dysfunction (PTTD) of left lower extremity (Primary Dx); Diabetic mononeuropathy simplex (CMS/HCC V24, CMS/HCC V28); Dermatophytosis of nail 08/06/2024 8:45 AM EDT Office Visit Orthopedic [facility] [address] [phone] Riaz Tuttle DPM Posterior tibial tendon dysfunction (PTTD) of left lower extremity (Primary Dx); Follow-up exam; Arthritis of left ankle from Last 3 Months Social History [...] Care Team (Late st Contact Info) Description 12/10/2024 1:45 PM EDT Office Visit Orthopedic Surgery - [place] [address] [phone] Riaz Tuttle, DPM [address] [phone] Health Maintenance Due Date Last Done Comments Breast Cancer Screening 1960 Diabetes: Annual Foot Exam 02/07/1970 Diabetes: Annual Retina Eye Exam 02/07/1970 Cervical Cancer Screening: Pap Smear 02/07/1981 Diabetes: Annual GFR (Glomerular Filtration Rate) 06/17/2014 06/17/2013 Cholesterol Screening (Lipid Panel) 10/23/2023 06/17/2013 Colorectal Cancer Screening: Colonoscopy 10/23/2023 HIV Screening 10/23/2023 Hepatitis C Screening 10/23/2023 Social Influencers of Health Screening 10/23/2023 COVID-19 Vaccine ( season) 2023 03/05/2023, 02/15/2022, 09/21/2021, Additional history exists Depression Screening 04/02/2024 Diabetes: Annual Urine Albumin-Creatinine Ratio (uACR) 10/16/2024 Diabetes: Blood Sugar Control Test (HGBA1C) 10/16/2024 06/17/2013 Influenza Vaccine (#1) 2024 , 01/03/2023, 12/28/2021, Additional history exists DTaP,Tdap,and Td Vaccines (2 - Td or Tdap) 12/28/2026 12/28/2016 Zoster Vaccines Completed 12/12/2018, 09/01, 10/07/2017, Additional history exists RSV Immunization Adult Patients Completed 03/05/2023 Pneumococcal Vaccine: 50+ Years Completed 09/21/2023, 12/16/2018 HIB Vaccines Aged Out No longer eligi [...] Routine 08/06/2024 8:27 AM EDT Follow-up exam from Last 3 [...] Last 3 Months Insurance [place]ID - [place] [facility] [place] GOEL [id number] Advance Directives Documents on File Type Date Recorded 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
--- OUTSIDE RECORDS SUMMARY | 2024-11-04 13:07 | XMS_ITS | Clinical Summary ---
Author Organization [facility] Address [address] [place] [address] Care Team Providers Care Pattern Ruler Name Role Phone Unavailable Primary Care Provider [...] of Treatment Not on file [address] [address]
[2024-11-19] VITALS (13 sets, daily range): BP systolic 96–116; BP diastolic 54–71; PULSE 68–88; RESP 13–20; TEMP 36.1–36.4; O2SAT 94–100; BMI 36.2
--- NOTE | ~2024-11-19 | IR_ITS ---
CLINICAL HISTORY: Left-sided breast cancer. The patient presents to interventional radiology for placement of a port for chemotherapy. PROCEDURES: 1. Real-time ultrasound-guided access into the right internal jugular vein after documentation of selected vessel patency, and permanent image storing in the patient records. 2. Placement of a 6.6 Hungarian single-lumen port. CLINICIAN: Alberto Caruso NP MEDICATIONS: - Versed , Fentanyl , Lidocaine 1% SQ -Antibiotics: Ancef 2g -For additional details, please see nursing flowsheet. Complications: None. Estimated blood loss: <5 ml Specimens: None. Contrast: None. Fluoroscopy time: 0.5 min MODERATE SEDATION TIME: 31 min PROCEDURE NOTE: The procedure, risks, benefits, and alternatives were carefully explained to the patient and written informed consent was obtained. The patient was placed supine on the fluoroscopy table. A timeout was performed. The right neck and chest was prepped and draped in usual sterile fashion. Maximum barrier technique was utilized. Local anesthesia was administered to the access site with 1% lidocaine. Under ultrasound guidance, the right internal jugular vein was accessed with a 5 fr micropuncture set. A 0.035 in wire was advanced into the IVC. A peel-away sheath was advanced over the wire and into the SVC, and the wire was removed. Next, subcutaneous lidocaine was administered to the chest. The port pocket was created after the skin incision, utilizing blunt dissection. Using blunt dissection, a subcutaneous tunnel was created that connects from the port pocket to the venotomy site. Through the peel-away sheath, the 6.6 Hungarian port catheter was placed. The catheter position was verified with fluoroscopy to be at the superior vena cava/right atrial junction. The port was connected to the catheter and was placed in the pocket. The port incision site was closed with interrupted 3-0 Vicryl subcutaneous sutures and surgical glue. Prior to closing the skin, 1 g of Ancef solution was placed in the pocket. The port was tested, flushed, and packed with heparin per routine protocol. The patient tolerated the procedure well. The patient was stable after the procedure and was transferred to the PACU. The procedure was performed under moderate sedation and with a dedicated nurse with continuous monitoring of vital signs. A permanent image of the ultrasound the neck and fluoroscopic image of the chest was saved and sent to PACS. FINDINGS: 1. Patent right internal jugular vein 2. Placement of a 6.6 Hungarian single lumen port. 3. Port flushes and aspirates very well with a 10 mL syringe. No pneumothorax. IR/IR cvc insert tunnel w prt/visitor services associate IMPRESSION: Placement of a 6.6 Hungarian single-lumen port. PLAN: - The patient will be discharged home when stable by sedation protocol. - Port may be used immediately. This procedure was performed by Alberto Caruso NP and directly supervised by Catrachito Zimmer M.D. Electronically signed by: Catrachito Zimmer MD 11/27/2024 02:41 PM EDT
[2024-11-19 12:04] LABS: INTERNATIONAL NORM RATIO 0.9 (0.9-1.1); Prothrombin Time 10.8 SEC (10.9-12.4)
[2024-11-19 12:11] LABS: Glucose, Whole Blood 188 mg/dL (60-115)
== END 2024-11-19 15:15 | disposition home or self-care (01) ==
PROVIDERS: Radiology Diagnostic Radiology; PCP Physician Assistant; Visit Provider Internal Medicine Medical Oncology
DX: Z45.2 Encounter for adjustment and management of vascular access device (principal); C50.912 Malignant neoplasm of unspecified site of left female breast; Z17.0 Estrogen receptor positive status [ER+]; Z17.21 Progesterone receptor positive status; Z17.32 Human epidermal growth factor receptor 2 negative status; Z90.13 Acquired absence of bilateral breasts and nipples; I10 Essential (primary) hypertension; E11.9 Type 2 diabetes mellitus without complications; H90.42 Sensorineural hearing loss, unilateral, left ear, with unrestricted hearing on the contralateral side; Z87.828 Personal history of other (healed) physical injury and trauma; Z98.890 Other specified postprocedural states; Z79.82 Long term (current) use of aspirin; L23.1 Allergic contact dermatitis due to adhesives
CPT/HCPCS: 36415; 36561; 76937; 82947; 85610; 99152; 99153; C1769; C1788; J0690; J1642; J1644; J2003; J2250; J3010

== ENCOUNTER → 2024-11-19 12:46 | Outpatient (BNV) | payer MEDICARE, MEDICAID, SELFPAY | PROVIDERS: PCP Physician Assistant | DX: C50.912 Malignant neoplasm of unspecified site of left female breast (principal); Z45.2 Encounter for adjustment and management of vascular access device | CPT/HCPCS: 36561; 76937; 77001; 99152 ==